=== PATIENT | male | born 1980 | race Caucasian/White ===

== ENCOUNTER → 2016-08-23 | Outpatient (CLI) | payer OTHER ==
[~2016-08-23] MED LIST: BACL-67 PO; CLAR1TAB2 PO; DIVA125T PO; DULO1CAP PO; FLON0.054; GABA600T PO; INVO100T PO; LISI20TA3 PO; MELO7.5S PO; METF500T PO; METO25TAB PO; OMEP20CA3 PO; OXYC1TAB15 PO; PAME10CA PO; TOPA100T8 PO; VERA240T14 PO; [UNRECOGNIZED DRUG - OTHER] PO
--- NOTE | 2016-08-23 23:45 | ECWPNPC ---
PATIENT NAME: NARESH CONCEPCION : 1980 GENDER: MALE VISIT DATE: 08/23/2016 DISCHARGE DATE: 08/23/16 1157 VISIT LOCKED DATE TIME: PHYSICIAN: SAIRA JAMA RESOURCE: SAIRA JAMA REASON FOR APPOINTMENT 1. W/C- NECK HISTORY OF PRESENT ILLNESS HISTORY OF PRESENT ILLNESS: PAIN THE PATIENT DESCRIBES THE PAIN... FALL RISK SCREENING: SCREENING :NO FALLS IN THE PAST YEAR TODAY'S VISIT: NOTES: RATES PAIN TODAY 5/10. PAIN AND TENDERNESS IS NOTED FROM THE BASE OF NECK TO THE BACK OF HEAD, BOTH SIDES. PAIN IS INTERMITTANTLY SHOOTING UP THE BACK OF THE HEAD FRONM THE NECK. REPORTS HE IS STILL EXPERIENCING NUMBNESS AND TINGLING IN 4THAND 5TH FINGER BOTH HANDS AND HAS SOME TINGLING IN THUMB,1ST AND 2ND FINGERS OF BOTH HANDS. THERE IS A DEEP ACHE AT THE BASE OF THE NECK AND THIS IS INCREASING LIKE IT WAS BEFORE HIS INJECTIONS. REPORTS THAT TRIGGER POINT INJECTIONS (09/23/15) AND CERVICAL FACET BLOCK RIGHT SIDE AT C2-3 AND C3-4 (12/08/15) COMPLETED BROUGHT SIGNIFICANT RELIEF OF 75% IN THE NECK AND BACK OF THE HEAD.. CURRENT MEDICATIONS TAKING DIVALPROEX SODIUM 125 MG TABLET DELAYED RELEASE 1 TABLET ORALLY ONCE A DAY TAKING LISINOPRIL-HYDROCHLOROTHIAZIDE 20-25 MG TABLET 1 TABLET ORALLY ONCE A DAY TAKING LORATADINE 10 MG TABLET 1 TABLET ORALLY ONCE A DAY TAKING METFORMIN 1000 MG TABLET 1 TAB(S) P.O. BID TAKING METFORMIN 500 MG 1 TAB ORAL AT NOON TAKING METOPROLOL TARTRATE 25 MG TABLET 1 TABLET ORALLY TWICE A DAY TAKING OMEPRAZOLE 20MG 20MG TABLET ORAL DAILY TAKING DULOXETINE HCL 20 MG CAPSULE DELAYED RELEASE PARTICLES 1 CAPSULE ORALLY DAILY TAKING BACLOFEN 10 MG TABLET 1 TABLET WITH FOOD OR MILK ORALLY THREE TIMES A DAY TAKING TRUVADA 200-300 MG TABLET 1 TABLET ORALLY ONCE A DAY TAKING CYCLOBENZAPRINE HCL 10 MG TABLET 1 TABLET ORALLY THREE TIMES A DAY TAKING PERCOCET 7.5-325 MG TABLET 1 TABLET NEEDED ORALLY EVERY 6 HRS PRN PAIN MDD=2 TAKING MELOXICAM 7.5 MG TABLET 1 TABLET ORALLY TWICE A DAY NOT-TAKING TIZANIDINE HCL 2 MG TABLET 1 TABLET NEEDED ORALLY THREE TIMES A DAY NOT-TAKING OXYCONTIN 15 MG TABLET ER 12 HOUR ABUSE-DETERRENT 1 TABLET ORALLY EVERY 12 HRS NOT-TAKING INVOKANA 300 MG TABLET 1 TABLET ORALLY ONCE A DAY, NOTES: YESTERDAY 0730 NOT-TAKING GABAPENTIN 600 MG TABLET 1 TABLET ORALLY THREE TIMES A DAY, NOTES: 0800 NOT-TAKING NORTRIPTYLINE HCL 25 MG CAPSULE 1 CAPSULE ORALLY ONCE A DAY, NOTES: 0800 NOT-TAKING VALIUM 5 MG TABLET 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 NEW PATIENT PAIN DIARY TODAY'S VISITNOTES FROM 0-10, WHAT LEVEL IS YOUR PAIN TODAY?0 PAIN CLINIC PFS, CLERGY, PUBLIC HEALTH REFERRALS PFS REFERRAL NEEDED?NO CLERGY REFERRAL NEEDED?NO PUBLIC HEALTH REFERRAL NEEDED?NO WAS THE PROVIDER NOTIFIED OF ANY PERTINENT INFO?NO PFS REFERRAL NEEDED?NO CLERGY REFERRAL NEEDED?NO PUBLIC HEALTH REFERRAL NEEDED?NO WAS THE PROVIDER NOTIFIED OF ANY PERTINENT INFO?NO REVIEW OF SYSTEMS CONSTITUTIONAL: ANY CHANGE IN YOUR MEDICAL CONDITION? NO . CHILLS NO . FEVER NO . INFECTION: DO YOU HAVE NEW INFECTIONS? NO . DO YOU HAVE HISTORY OF MRSA? NO . MUSCULOSKELETAL: ANY NEW PATTERNS OF PAIN OR NUMBNESS? NO . GASTROENTEROLOGY: ANY NEW CHANGE IN BOWEL CONTROL? NO . GENITOURINARY: ANY NEW CHANGE IN BLADDER CONTROL? NO . IS THERE A CHANCE YOU COULD BE ? NO . HEMATOLOGY/LYMPH: DO YOU TAKE ANY BLOOD THINNERS? (FOR EXAMPLE- COUMADIN, PLAVIX, AGGRENOX, PLATEL, PRADAXA, OR XARELTO) NO . WHEN WAS YOUR LAST DOSE? DATE: TIME: . NEUROLOGY: HAVE YOU FALLEN IN THE PAST 6 MONTHS? NO . ANY NEW EXTREMITY NUMBNESS OR WEAKNESS? NO . CARDIOLOGY: DO YOU HAVE A PACEMAKER OR DEFIBRILLATOR? NO . RESPIRATORY: HAVE YOU BEEN SICK IN THE PAST WEEK? NO . FEVER NO . FLU LIKE SYMPTOMS? NO . COUGH NO . INTEGUMENTARY: DO YOU HAVE ANY RASHES OR OPEN SORES? NO . ALLERGIC/IMMUNO: ARE YOU ALLERGIC TO SHELLFISH OR IV DYE? NO . ANY NEW ALLERGIES? NO . PSYCHIATRIC: DO YOU HAVE THOUGHTS OF HURTING YOURSELF OR SOMEONE ELSE? NO . ARE YOU ABUSED, NEGLECTED, OR IN AN UNSAFE ENVIRONMENT? NO . ENDOCRINOLOGY: ARE YOU DIABETIC? YES . OTHER: DO YOU NEED ANY PRESCRIPTIONS? NO . IF YES, PLEASE LIST: ____ . ANY NEW PROBLEMS WITH YOUR MEDICATIONS? NO . WHEN DID YOU LAST EAT? ____ . WHEN DID YOU LAST DRINK? ____ . WHAT DID YOU LAST DRINK? ____ . NAME OF PERSON DRIVING YOU HOME? ____ . DO YOU HAVE ANY OTHER QUESTIONS OR CONCERNS NO . REVIEWED BY: PROVIDER: SAIRA DANIELS . VITAL SIGNS WT 283.2 LBS, HT 68 IN, BMI 43.06 INDEX, BP 125/82 MM HG, HR 100 /MIN, RR 18 /MIN, TEMP 97.1 F, OXYGEN SAT % 95%, NA INITIALS SC 11:06, REVIEWED BY: KG. EXAMINATION GENERAL EXAMINATION: PSYCHALERT , ORIENTED X 3 , APPROPRIATE MOOD AND AFFECT . LUNGS:CLEAR TO AUSCULTATION , NO WHEEZES, RALES OR RHONCHI. HEART:HEART RATE REGULAR. MUSCULOSKELETAL:POINT TENDERNESS OVER BILATERAL OCCIPITAL NERVE REGION. , TRIGGER POINTS AND TIGHT FIBROUS BANDS IDENTIFIED OVER THE CERVICAL PARASPINOUS MUSCLES AND INTO THE TRAPEZIUS MUSCLES BILATERALY.DECREASED ROM WITH NECK ROTATION AND FLEXION AND EXTENSION. HAND WATCH INSPECTOR FINAL MOVEMENT EQUAL BUT DIMINISHED IN OVERALL STRENGTH. NEUROLOGIC EXAM:DECREASED SENSATION TO LIGHT TOUCH OVER 4TH AND 5TH FINGERS BILATERALLY. ASSESSMENTS SPONDYLOSIS OF CERVICAL REGION WITHOUT MYELOPATHY OR RADICULOPATHY - M47.812 (PRIMARY) BILATERAL OCCIPITAL NEURALGIA - M54.81 MYALGIA - M79.1 TREATMENT SPONDYLOSIS OF CERVICAL REGION WITHOUT MYELOPATHY OR RADICULOPATHY STOP MELOXICAM TABLET, 7.5 MG, 1 TABLET, ORALLY, TWICE A DAY START CELEBREX CAPSULE, 200 MG, 1 CAPSULE, ORALLY, ONCE A DAY, 30 DAY(S), 30, REFILLS 2 TRIGGER POINT 3 + SAIRA LANDAVERDE 08/23/2016 11:40:27 AM > NECK GREATER SAIRA ALVAREZ 08/23/2016 11:41:08 AM > BILATERAL NOTES: CONTINUE EXERCISES AND STRETCHES. UTOX TODAY. CALL IF NOT HEARD ON AUTH FOR INJECTIONS IN 2-3 WEEKS. PROCEDURES PN WORKMANS' COMP OPINION IN YOUR OPINION, WAS THE INCIDENT THAT THE PATIENT DESCRIBED THE COMPETENT MEDICAL CAUSE OF THIS INJURY/ILLNESS? YES ARE THE PATIENT'S COMPLAINTS CONSISTENT WITH HIS/HER HISTORY OF THE INJURY/ILLNESS? YES IS THE PATIENT'S HISTORY OF THE INJURY/ILLNESS CONSISTENT WITH YOUR OBJECTIVE FINDING? YES WHAT IS THE PERCENTAGE OF TEMPORARY IMPAIRMENT? TOTAL = 100% IS THE PATIENT WORKING? NO DOCTOR ON SITE: SAKSHI ALFREDO MD PROCEDURE CODES FA211 ESTABILISHED PATIENT [facility] CHARGE DISPOSITION & COMMUNICATION FOLLOW UP 6 WEEKS (REASON: WC NECK) ELECTRONICALLY SIGNED BY DIDIER WOOD ON 08/23/2016 AT 04:39 PM EST DISCLAIMER : THIS IS A VISIT SUMMARY EXTRACTED FROM THE [employer] CHART. IT IS NOT A COPY OF THE [employer] PROGRESS NOTE. VINICIO
== END ==
LOC: M PAIN 10:40
PROVIDERS: ATTEND Nurse Practitioner Family
DX: Z09 Encounter for follow-up examination after completed treatment for conditions other than malignant neoplasm (principal); G89.29 Other chronic pain; M47.812 Spondylosis without myelopathy or radiculopathy, cervical region; M54.81 Occipital neuralgia; M79.1 Myalgia; E11.9 Type 2 diabetes mellitus without complications; I10 Essential (primary) hypertension; Z79.84 Long term (current) use of oral hypoglycemic drugs; Z79.891 Long term (current) use of opiate analgesic; Z79.899 Other long term (current) drug therapy

== ENCOUNTER → 2016-09-20 | Outpatient (CLI) | payer OTHER ==
--- NOTE | 2016-09-25 00:02 | ECWPNPC ---
PATIENT NAME: NARESH CONCEPCION : 1980 GENDER: MALE VISIT DATE: 09/20/2016 DISCHARGE DATE: 09/20/16 1633 VISIT LOCKED DATE TIME: PHYSICIAN: SAKSHI HUMPHREY RESOURCE: SAKSHI HUMPHREY REASON FOR APPOINTMENT 1. WC HISTORY OF PRESENT ILLNESS HISTORY OF PRESENT ILLNESS: PAIN THE PATIENT DESCRIBES THE PAIN... 36 YEAR OLD MALE WITH HISTORY OF CHRONIC NECK AND HEAD PAIN. PATIENT DESCRIBES THE PAIN ACHING, SHARP, STABBING, TENDER, SORE, AND HAVING IT ALL THE TIME WITH A PAIN SCORE OF 10/10 ON TODAY'S VISIT. 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 PATIENT STATES THAT HE HAS NOT HAD ANY SURGERY ON HIS NECK. PATIENT STATES THAT HE HAS TRIED PT IN THE PAST WITHOUT ANY IMPROVEMENTS IN HIS MOBILITY AND FUNCTIONALITY. PATIENT REPORTS OF DIFFICULTY SLEEPING AT NIGHT. PATIENT REPORTS THAT LAYING DOWN DOES PROVIDE SOME PAIN RELIEF. PATIENT REPORTS THAT HE HAS RADIATING PAIN TO BOTH ARMS AND SHOULDER WITH A TINGLING SENSATION IN HIS HANDS AND FINGER TIPS. PATIENT REPORTS THAT ABOUT 10 DAYS AGO HE WENT TO THE ER DUE TO SEVERE NECK PAIN. PATIENT STATES THAT HE IN THE PAST HE RECEIVED TPI WITH GREATLY HELPED WITH INCREASING THE RANGE OF MOTION ON HIS NECK. PATIENT DENIES UNEXPLAINABLE WEIGHT LOSS, FEVER, CHILLS, NEW CHANGES ON HIS URINARY OR BOWEL CONTROL. FALL RISK SCREENING: SCREENING :NO FALLS IN THE PAST YEAR CURRENT MEDICATIONS TAKING CELEBREX 200 MG CAPSULE 1 CAPSULE ORALLY ONCE A DAY TAKING DIVALPROEX SODIUM 125 MG TABLET DELAYED RELEASE 1 TABLET ORALLY ONCE A DAY TAKING LISINOPRIL-HYDROCHLOROTHIAZIDE 20-25 MG TABLET 1 TABLET ORALLY ONCE A DAY TAKING LORATADINE 10 MG TABLET 1 TABLET ORALLY ONCE A DAY TAKING METFORMIN 1000 MG TABLET 1 TAB(S) P.O. BID TAKING METFORMIN 500 MG 1 TAB ORAL AT NOON TAKING METOPROLOL TARTRATE 25 MG TABLET 1 TABLET ORALLY TWICE A DAY TAKING OMEPRAZOLE 20MG 20MG TABLET ORAL DAILY TAKING DULOXETINE HCL 20 MG CAPSULE DELAYED RELEASE PARTICLES 1 CAPSULE ORALLY DAILY TAKING BACLOFEN 10 MG TABLET 1 TABLET WITH FOOD OR MILK ORALLY THREE TIMES A DAY TAKING TRUVADA 200-300 MG TABLET 1 TABLET ORALLY ONCE A DAY TAKING CYCLOBENZAPRINE HCL 10 MG TABLET 1 TABLET ORALLY THREE TIMES A DAY TAKING PERCOCET 7.5-325 MG TABLET 1 TABLET NEEDED ORALLY EVERY 6 HRS PRN PAIN MDD=2 NOT-TAKING TIZANIDINE HCL 2 MG TABLET 1 TABLET NEEDED ORALLY THREE TIMES A DAY NOT-TAKING OXYCONTIN 15 MG TABLET ER 12 HOUR ABUSE-DETERRENT 1 TABLET ORALLY EVERY 12 HRS NOT-TAKING INVOKANA 300 MG TABLET 1 TABLET ORALLY ONCE A DAY, NOTES: YESTERDAY 0730 NOT-TAKING GABAPENTIN 600 MG TABLET 1 TABLET ORALLY THREE TIMES A DAY, NOTES: 0800 NOT-TAKING NORTRIPTYLINE HCL 25 MG CAPSULE 1 CAPSULE ORALLY ONCE A DAY, NOTES: 0800 NOT-TAKING VALIUM 5 MG 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 SURGICAL HISTORY COLONOSCOPY RT CARPEL TUNNEL 2016 LEFT CARPEL TUNNEL 2017 FAMILY HISTORY NO FAMILY HISTORY DOCUMENTED. SOCIAL HISTORY GENERAL: TOBACCO USE ARE YOU A: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 NEW PATIENT PAIN DIARY TODAY'S VISITNOTES FROM 0-10, WHAT LEVEL IS YOUR PAIN TODAY?0 PAIN CLINIC PFS, CLERGY, PUBLIC HEALTH REFERRALS PFS REFERRAL NEEDED?NO CLERGY REFERRAL NEEDED?NO PUBLIC HEALTH REFERRAL NEEDED?NO WAS THE PROVIDER NOTIFIED OF ANY PERTINENT INFO?NO PFS REFERRAL NEEDED?NO CLERGY REFERRAL NEEDED?NO PUBLIC HEALTH REFERRAL NEEDED?NO WAS THE PROVIDER NOTIFIED OF ANY PERTINENT INFO?NO HOSPITALIZATION/MAJOR DIAGNOSTIC PROCEDURE NO HOSPITALIZATION HISTORY. REVIEW OF SYSTEMS CONSTITUTIONAL: ANY CHANGE IN YOUR MEDICAL CONDITION? NO . CHILLS NO . FEVER NO . INFECTION: DO YOU HAVE NEW INFECTIONS? NO . DO YOU HAVE HISTORY OF MRSA? NO . MUSCULOSKELETAL: ANY NEW PATTERNS OF PAIN OR NUMBNESS? YES, 10 DAYS AGO, PT STATES THAT HE WAS TURNING HIS HEAD AND HEARD SOMETHING POP IN NECK, VERY PAINFUL, BECAME NAUSEATED, WENT TO ED 2 DAYS LATER, NO MEDS RECEIVED, NO XRAYS DONE. NECK REMAINS VERY PAINFUL 10/10 PAIN . GASTROENTEROLOGY: ANY NEW CHANGE IN BOWEL CONTROL? NO . GENITOURINARY: ANY NEW CHANGE IN BLADDER CONTROL? NO . IS THERE A CHANCE YOU COULD BE ? NO . HEMATOLOGY/LYMPH: DO YOU TAKE ANY BLOOD THINNERS? (FOR EXAMPLE- COUMADIN, PLAVIX, AGGRENOX, PLATEL, PRADAXA, OR XARELTO) NO . WHEN WAS YOUR LAST DOSE? DATE: TIME: . NEUROLOGY: HAVE YOU FALLEN IN THE PAST 6 MONTHS? NO . ANY NEW EXTREMITY NUMBNESS OR WEAKNESS? NO . CARDIOLOGY: DO YOU HAVE A PACEMAKER OR DEFIBRILLATOR? NO . RESPIRATORY: HAVE YOU BEEN SICK IN THE PAST WEEK? NO . FEVER NO . FLU LIKE SYMPTOMS? NO . COUGH NO . INTEGUMENTARY: DO YOU HAVE ANY RASHES OR OPEN SORES? NO . ALLERGIC/IMMUNO: ARE YOU ALLERGIC TO SHELLFISH OR IV DYE? NO . ANY NEW ALLERGIES? NO . PSYCHIATRIC: DO YOU HAVE THOUGHTS OF HURTING YOURSELF OR SOMEONE ELSE? NO . ARE YOU ABUSED, NEGLECTED, OR IN AN UNSAFE ENVIRONMENT? NO . ENDOCRINOLOGY: ARE YOU DIABETIC? YES, FSBS 247 . OTHER: DO YOU NEED ANY PRESCRIPTIONS? NO . IF YES, PLEASE LIST: ____ . ANY NEW PROBLEMS WITH YOUR MEDICATIONS? NO . WHEN DID YOU LAST EAT? 6PM . WHEN DID YOU LAST DRINK? 09/20 5:45AM . WHAT DID YOU LAST DRINK? WATER . NAME OF PERSON DRIVING YOU HOME? SELF . DO YOU HAVE ANY OTHER QUESTIONS OR CONCERNS CHANGE OF NUMBNESS IN BACK OF HEAD, HEARD SOMETHING POP IN SHOULDER/NECK.PT STATES THAT HE CURRENTLY USES CHEWING TOBACCO, USING NICOTENE PATCHES TO WEAN OFF CHEWING TOBACCO. . REVIEWED BY: PROVIDER: SAKSHI HUMPHREY MD . VITAL SIGNS WT 280.8 LBS, HT 68 IN, BMI 42.69 INDEX, BP 147/82 MM HG, HR 109 /MIN, RR 18 /MIN, TEMP 97.1 F, OXYGEN SAT % 95%, SAFE IN ENV? (Y/N) Y, NA INITIALS SC 14:50, REVIEWED BY: JOSE. EXAMINATION : PATIENT IS ALERT O X 3 AND COOPERATIVE. THERE IS TENDERNESS IN THE CERVICAL PARASPINAL MUSCLE GROUP WITH BANDS OF TISSUES, RESTRICTION OF MOVEMENT, AND PRESENCE OF TRIGGER POINTS. PATIENT IS ABLE TO FLEX HIS NECK TO 15 DEGREES AND EXTEND TO 5 DEGREES. PATIENT HAS LIMITED RANGE MOTION WITH LATERAL MOVEMENT WITH SEVERE DIFFICULTIES. MRI OF THE CERVICAL SPINE DONE ON 02/15/2015 SHOWS A DISC PROTRUSION AT C5-C6. 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 CONCEPCION'S PAIN MANAGEMENT CASE. AT THIS TIME I WILL REFILL PERCOCET AND CELEBREX FOR THE PATIENT TODAY. PATIENT WILL START ON SOMA TODAY FOR SPASTICITY AND PAIN. AFTER EXAMINING THE PATIENT HE IS A GOOD CANDIDATE FOR A BILATERAL NECK TPI. WE DISCUSSED THE RISK, BENEFITS, AND ALTERNATIVES AND THE PATIENT WOULD LIKE TO PROCEED. PATIENT WILL BE BOOKED PENDING APPROVAL. UTOX DONE ON 08-28-2016 SHOWS CONSISTENT RESULTS. INSTRUCTIONS WERE GIVEN, QUESTIONS WERE ANSWERED, PATIENT REPORTS UNDERSTANDING AND AGREES WITH THE PLAN. I, MARCO WHIPPLE, DOCUMENTED THE ABOVE INFORMATION ACTING A SCRIBE FOR DR. HUMPHREY. I HAVE REVIEWED THE ABOVE DOCUMENT, WRITTEN BY MARCO WHIPPLE SCRIBE AND I VERIFY THAT IT IS ACCURATE. OTHERS REFILL PERCOCET TABLET, 7.5-325 MG, 1 TABLET NEEDED, ORALLY, EVERY 6 HRS PRN PAIN MDD=2, 30 DAYS, 60, REFILLS 0 REFILL CELEBREX CAPSULE, 200 MG, 1 CAPSULE, ORALLY, ONCE A DAY, 30 DAY(S), 30, REFILLS 2 START SOMA TABLET, 350 MG, 1 TABLET NEEDED, ORALLY, BID NEEDED FOR SPASM AND PAIN MDD2, 30 DAY(S), 40, REFILLS 0 PROCEDURES PN WORKMANS' COMP OPINION IN YOUR OPINION, WAS THE INCIDENT THAT THE PATIENT DESCRIBED THE COMPETENT MEDICAL CAUSE OF THIS INJURY/ILLNESS? YES ARE THE PATIENT'S COMPLAINTS CONSISTENT WITH HIS/HER HISTORY OF THE INJURY/ILLNESS? YES IS THE PATIENT'S HISTORY OF THE INJURY/ILLNESS CONSISTENT WITH YOUR OBJECTIVE FINDING? YES WHAT IS THE PERCENTAGE OF TEMPORARY IMPAIRMENT? TOTAL = 100% IS THE PATIENT WORKING? NO DOCTOR ON SITE: SAKSHI ALFREDO MD PREVENTIVE MEDICINE PAIN CLINIC TEACHING: PROCEDURE TEACHING PRE TRIGGER POINT INJECTION INSTRUCTIONS REVIEWED WITH PT. VERBALZIED UNDERSTANDING. . PROCEDURE CODES G8730 PAIN ASSESS POS TOOL F/U PLAN DOC G8427 DOC MEDS VERIFIED W/PT OR RE FA211 ESTABILISHED PATIENT [facility] FACILITY CHARGE DISPOSITION & COMMUNICATION FOLLOW UP TPI PENDING APPROVAL ELECTRONICALLY SIGNED BY SAKSHI HUMPHREY MD ON 09/24/2016 AT 10:49 AM EDT DISCLAIMER : THIS IS A VISIT SUMMARY EXTRACTED FROM THE [employer] CHART. IT IS NOT A COPY OF THE [employer] PROGRESS NOTE. VINICIO
== END ==
LOC: M PAIN 14:45
PROVIDERS: ATTEND Anesthesiology
DX: Z09 Encounter for follow-up examination after completed treatment for conditions other than malignant neoplasm (principal); G89.29 Other chronic pain; M79.1 Myalgia; M50.122 Cervical disc disorder at C5-C6 level with radiculopathy; E11.9 Type 2 diabetes mellitus without complications; I10 Essential (primary) hypertension; Z79.84 Long term (current) use of oral hypoglycemic drugs; Z79.899 Other long term (current) drug therapy

== ENCOUNTER → 2016-10-24 | Outpatient (CLI) | payer OTHER ==
--- NOTE | 2016-11-04 23:43 | ECWPNPC ---
PATIENT NAME: NARESH CONCEPCION : 1980 GENDER: MALE VISIT DATE: 10/24/2016 DISCHARGE DATE: 10/24/16 1356 VISIT LOCKED DATE TIME: PHYSICIAN: SAKSHI HUMPHREY RESOURCE: SAKSHI HUMPHREY REASON FOR APPOINTMENT 1. W/C NECK AND BACK PAIN HISTORY OF PRESENT ILLNESS HISTORY OF PRESENT ILLNESS: PAIN THE PATIENT DESCRIBES THE PAIN... 36 YEAR OLD MALE WITH HISTORY OF CHRONIC NECK AND HEAD PAIN. PATIENT DESCRIBES THE PAIN ACHING, SHARP, STABBING, TENDER, SORE, AND HAVING IT ALL THE TIME WITH A PAIN SCORE OF 10/10 ON TODAY'S VISIT. 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 PATIENT STATES THAT HE HAS NOT HAD ANY SURGERY ON HIS NECK. PATIENT STATES THAT HE HAS TRIED PT IN THE PAST WITHOUT ANY IMPROVEMENTS IN HIS MOBILITY AND FUNCTIONALITY. PATIENT REPORTS OF DIFFICULTY SLEEPING AT NIGHT. PATIENT REPORTS THAT LAYING DOWN DOES PROVIDE SOME PAIN RELIEF. PATIENT REPORTS THAT HE HAS RADIATING PAIN TO BOTH ARMS AND SHOULDER WITH A TINGLING SENSATION IN HIS HANDS AND FINGER TIPS. PATIENT DENIES UNEXPLAINABLE WEIGHT LOSS, FEVER, CHILLS, NEW CHANGES ON HIS URINARY OR BOWEL CONTROL. FALL RISK SCREENING: SCREENING :NO FALLS IN THE PAST YEAR CURRENT MEDICATIONS TAKING DIVALPROEX SODIUM 125 MG TABLET DELAYED RELEASE 1 TABLET ORALLY ONCE A DAY TAKING LISINOPRIL-HYDROCHLOROTHIAZIDE 20-25 MG TABLET 1 TABLET ORALLY ONCE A DAY TAKING LORATADINE 10 MG TABLET 1 TABLET ORALLY ONCE A DAY TAKING METFORMIN 1000 MG TABLET 1 TAB(S) P.O. BID TAKING METFORMIN 500 MG 1 TAB ORAL AT NOON TAKING METOPROLOL TARTRATE 25 MG TABLET 1 TABLET ORALLY TWICE A DAY TAKING OMEPRAZOLE 20MG 20MG TABLET ORAL DAILY TAKING DULOXETINE HCL 20 MG CAPSULE DELAYED RELEASE PARTICLES 1 CAPSULE ORALLY DAILY TAKING TRUVADA 200-300 MG TABLET 1 TABLET ORALLY ONCE A DAY TAKING CYCLOBENZAPRINE HCL 10 MG TABLET 1 TABLET ORALLY THREE TIMES A DAY TAKING PERCOCET 7.5-325 MG TABLET 1 TABLET NEEDED ORALLY EVERY 6 HRS PRN PAIN MDD=2 TAKING CELEBREX 200 MG CAPSULE 1 CAPSULE ORALLY ONCE A DAY TAKING SOMA 350 MG TABLET 1 TABLET NEEDED ORALLY BID NEEDED FOR SPASM AND PAIN MDD2 TAKING GABAPENTIN 300 MG CAPSULE 1 CAPSULE ORALLY BEFORE BEDTIME FOR PAIN NOT-TAKING BACLOFEN 10 MG TABLET 1 TABLET WITH FOOD OR MILK ORALLY THREE TIMES A DAY, NOTES: NO LONGER HAS NOT-TAKING TIZANIDINE HCL 2 MG TABLET 1 TABLET NEEDED ORALLY THREE TIMES A DAY NOT-TAKING OXYCONTIN 15 MG TABLET ER 12 HOUR ABUSE-DETERRENT 1 TABLET ORALLY EVERY 12 HRS NOT-TAKING INVOKANA 300 MG TABLET 1 TABLET ORALLY ONCE A DAY, NOTES: YESTERDAY 0730 NOT-TAKING GABAPENTIN 600 MG TABLET 1 TABLET ORALLY THREE TIMES A DAY, NOTES: 0800 NOT-TAKING NORTRIPTYLINE HCL 25 MG CAPSULE 1 CAPSULE ORALLY ONCE A DAY, NOTES: 0800 NOT-TAKING VALIUM 5 MG 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 SURGICAL HISTORY COLONOSCOPY RT CARPEL TUNNEL 2016 LEFT CARPEL TUNNEL 2017 FAMILY HISTORY NO FAMILY HISTORY DOCUMENTED. SOCIAL HISTORY GENERAL: PAIN CLINIC PFS, CLERGY, PUBLIC HEALTH REFERRALS CLERGY REFERRAL NEEDED?NO WAS THE PROVIDER NOTIFIED OF ANY PERTINENT INFO?NO PFS REFERRAL NEEDED?NO PUBLIC HEALTH REFERRAL NEEDED?NO PATIENT: ____. HOSPITALIZATION/MAJOR DIAGNOSTIC PROCEDURE NO HOSPITALIZATION HISTORY. REVIEW OF SYSTEMS CONSTITUTIONAL: ANY CHANGE IN YOUR MEDICAL CONDITION? NO . CHILLS NO . FEVER NO . INFECTION: DO YOU HAVE NEW INFECTIONS? NO . DO YOU HAVE HISTORY OF MRSA? NO . MUSCULOSKELETAL: ANY NEW PATTERNS OF PAIN OR NUMBNESS? YES, RIGHT SHOULDER MADE A HAD PAIN IN RIGHT SHOULDER AND DOWN ARM. RIGHT HAND IS ALSO NUMB . GASTROENTEROLOGY: ANY NEW CHANGE IN BOWEL CONTROL? NO . GENITOURINARY: ANY NEW CHANGE IN BLADDER CONTROL? NO . IS THERE A CHANCE YOU COULD BE ? NO . HEMATOLOGY/LYMPH: DO YOU TAKE ANY BLOOD THINNERS? (FOR EXAMPLE- COUMADIN, PLAVIX, AGGRENOX, PLATEL, PRADAXA, OR XARELTO) NO . WHEN WAS YOUR LAST DOSE? DATE: TIME: . NEUROLOGY: HAVE YOU FALLEN IN THE PAST 6 MONTHS? NO . ANY NEW EXTREMITY NUMBNESS OR WEAKNESS? NO . CARDIOLOGY: DO YOU HAVE A PACEMAKER OR DEFIBRILLATOR? NO . RESPIRATORY: HAVE YOU BEEN SICK IN THE PAST WEEK? NO . FEVER NO . FLU LIKE SYMPTOMS? NO . COUGH NO . INTEGUMENTARY: DO YOU HAVE ANY RASHES OR OPEN SORES? NO . ALLERGIC/IMMUNO: ARE YOU ALLERGIC TO SHELLFISH OR IV DYE? NO . ANY NEW ALLERGIES? NO . PSYCHIATRIC: DO YOU HAVE THOUGHTS OF HURTING YOURSELF OR SOMEONE ELSE? NO . ARE YOU ABUSED, NEGLECTED, OR IN AN UNSAFE ENVIRONMENT? NO . ENDOCRINOLOGY: ARE YOU DIABETIC? YES . OTHER: DO YOU NEED ANY PRESCRIPTIONS? YES . IF YES, PLEASE LIST: CYCLOBENAPRINE . ANY NEW PROBLEMS WITH YOUR MEDICATIONS? NO . WHEN DID YOU LAST EAT? ____ . WHEN DID YOU LAST DRINK? ____ . WHAT DID YOU LAST DRINK? ____ . NAME OF PERSON DRIVING YOU HOME? ____ . DO YOU HAVE ANY OTHER QUESTIONS OR CONCERNS STILL WAITING FOR APPROVAL FOR MIKE AND MRI. WOULD LIKE TO DISCUSS CON'T THE KETOROLAC&NBSP;. REVIEWED BY: PROVIDER: SAKSHI HUMPHREY MD . VITAL SIGNS WT 278.0 LBS, HT 68 IN, BMI 42.27 INDEX, BP 137/88 MM HG, HR 99 /MIN, RR 18 /MIN, TEMP 97.0 F, OXYGEN SAT % 94%, NA INITIALS AW 1251, REVIEWED BY: AD. EXAMINATION : PATIENT IS ALERT O X 3 AND COOPERATIVE. PATIENT ABLE TO EXTEND NECK 20 DEGREE, EXTEND 15 DEGREES, LATERAL ROTATION TO THE RIGHT 15 DEGREE, AND LATERAL ROTATION TO THE LEFT 15 DEGREE WITH DISCOMFORT. PATIENT ABLE TO ABDUCT LEFT ARM COMPLETELY AND RIGHT ARM TO SHOULDER LEVEL. RIGHT ARM IS WEAKER THEN THE LEFT ALONG WITH THE HAND DRAW IN HAND. TENDERNESS IN THE CERVICAL AREA AND PARASPINAL MUSCLE GROUP. BANDS OF TISSUE, RESTRICTION OF MOVEMENT AND PRESENCE OF TRIGGER POINTS IN THE CERVICAL AREA.MRI OF THE CERVICAL SPINE DONE ON 02/15/2017 SHOWS A DISC PROTRUSION AT C5-C6. 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 CONCEPCION'S PAIN MANAGEMENT CASE. AT THIS TIME THE PATIENT WILL CONTINUE WITH THE SAME MEDICATION REGIME BEFORE. PATIENT WILL USE GABAPENTIN FOR THE NEUROPATHIC PAIN DOWN THE LEGS, CYCLOBENZAPRINE FOR THE MUSCLE SPASMS, AND PERCOCET FOR THE SOMATIC PAIN. PATIENT DENIES ABUSE OF ANY MEDICATION, DENIES USE OF ILLEGAL SUBSTANCES, AND STATES THAT HE IS ONLY USING THE MEDICATION FOR PAIN MANAGEMENT. PATIENT BROUGHT HIS MEDICATIONS TO TODAY'S VISIT IN THEIR ORIGINAL BOTTLES. URINE TOXICOLOGY REPORT DONE IN AUGUST 2016 SHOWS CONSISTENT RESULTS WITH THE PATIENT'S MEDICATION LIST. WE DISCUSSED MOVING FORWARD WITH A CERVICAL EPIDURAL DUE TO THE RADICULAR PAIN AND THE DISC PROTRUSION. WE DISCUSSED THE RISKS, BENENFITS, AND ALTNERATIVES WITH THE INJECTION THE PATIENT WOULD LIKE TO PROCEED. INSTRUCTIONS WERE GIVEN, QUESTIONS WERE ANSWERED, PATIENT REPORTS UNDERSTANDING AND AGREES WITH THE PLAN. I, YANY CARDOZA, DOCUMENTED THE ABOVE INFORMATION ACTING A SCRIBE FOR DR. HUMPHREY. I HAVE REVIEWED THE ABOVE DOCUMENT, WRITTEN BY YANY CHILDERS AND I VERIFY THAT IT IS ACCURATE. PROCEDURES PN WORKMANS' COMP OPINION IN YOUR OPINION, WAS THE INCIDENT THAT THE PATIENT DESCRIBED THE COMPETENT MEDICAL CAUSE OF THIS INJURY/ILLNESS? YES ARE THE PATIENT'S COMPLAINTS CONSISTENT WITH HIS/HER HISTORY OF THE INJURY/ILLNESS? YES IS THE PATIENT'S HISTORY OF THE INJURY/ILLNESS CONSISTENT WITH YOUR OBJECTIVE FINDING? YES WHAT IS THE PERCENTAGE OF TEMPORARY IMPAIRMENT? TOTAL = 100% IS THE PATIENT WORKING? NO DOCTOR ON SITE: SAKSHI ALFREDO MD PREVENTIVE MEDICINE PAIN CLINIC TEACHING: PROCEDURE TEACHING PT. DECLINED PRINTED INFORMATION ON MIKE AND PRE-PROCEDURE INSTRUCTIONS STATING HE RECEIVED THEM LAST TIME AND STILL HAS THE INFORMATION. PRE-PROCEDURE INSTRUCTIONS REVIEWED WITH PT. AND HE VERBALIZED UNDERSTANDING. AD. PROCEDURE CODES FA211 ESTABILISHED PATIENT [facility] CHARGE DISPOSITION & COMMUNICATION FOLLOW UP 6 WEEKS AND CERVICAL EPIDURAL AFTER APPROVED ELECTRONICALLY SIGNED BY SAKSHI HUMPHREY MD ON 11/04/2016 AT 12:31 PM EDT DISCLAIMER : THIS IS A VISIT SUMMARY EXTRACTED FROM THE [employer] CHART. IT IS NOT A COPY OF THE [employer] PROGRESS NOTE. VINICIO
== END ==
LOC: M PAIN 13:00
PROVIDERS: ATTEND Anesthesiology
DX: G89.29 Other chronic pain (principal); M79.1 Myalgia; M50.122 Cervical disc disorder at C5-C6 level with radiculopathy; E11.9 Type 2 diabetes mellitus without complications; I10 Essential (primary) hypertension; Z79.84 Long term (current) use of oral hypoglycemic drugs; Z79.899 Other long term (current) drug therapy

== ENCOUNTER → 2016-12-04 | Day surgery (SDC) | payer OTHER ==
[~2016-12-04] VITALS: Ht 172.7 cm; Wt 127.5 kg
[~2016-12-04] MED LIST changes: +ACET30TAB PO; +ACETAMINOPH W/CODEINE #3 TAB UD PO PRN; +ALOG25TA PO; +ATOR1TAB21 PO; +AUGM500T34 PO; +BACT800T5 PO; +BASA100I SC; +CELE-19 PO; +CETI10TA PO; +CYCL10TA PO; +EPINEPHrine 1MG/ML INJ 30ML MD-VIAL As Ordered ONE; +GABA-282 PO; +LIDOCAINE W/EPINEPHRINE 1% 20ML VIAL As Ordered ONE; +LR 1,000 ML IV ONE; +LR 1,000 ML IV SCH; +METHYLENE BLUE 0.5% (5MG/ML) 10 ML AMP (PROVAYBLUE)(Q9968 PER 1MG) As Ordered ONE; +MIDAZOLAM INJ 2 MG/2 ML VIAL (J2250) As Ordered ONE; +MORPHINE 10 MG/ML 1ML VIAL IV PRN; +ONDANSETRON 4MG/2ML VIAL (J2405) As Ordered ONE; +ONDANSETRON 4MG/2ML VIAL (J2405) IV PRN; +PROPOFOL 200 MG/20 ML VIAL As Ordered ONE; +ROCURONIUM BROMIDE 50 MG/5 ML VIAL As Ordered ONE; +SM N; +SUCCINYLCHOLINE 100 MG/5 ML SYRINGE (J0330) As Ordered ONE; +dexameTHASONE 4 MG/ML 1ML VIAL (J1100) As Ordered ONE; +fentaNYL 100 MCG/2 ML INJECTION (J3010) As Ordered ONE; +fentaNYL 100 MCG/2 ML INJECTION (J3010) IV PRN
[2016-12-04 16:20] VITALS: BP 138/83
--- NOTE | 2016-12-05 13:30 | RO ---
DATE OF PROCEDURE: 12/04/2016 PREOPERATIVE DIAGNOSIS: Chronic rhinosinusitis. POSTOPERATIVE DIAGNOSIS: Chronic rhinosinusitis. PROCEDURES: Septoplasty, left nasal cautery, bilateral balloon sinuplasty, bilateral maxillary antrostomy, bilateral ethmoidectomy. SURGEON: Dr. Sarabjit Bull PECAN GROWER: ANESTHESIA: . DESCRIPTION OF PROCEDURE: Under general anesthesia with the patient intubated, the patient was prepped and draped in the usual sterile manner. I used pledgets of adrenaline 1:100,000 and infiltrated with lidocaine and epinephrine. I started making an incision anteriorly and elevated the subperichondrial plane. I divided the quadrangular cartilage from the ethmoid plate and maxillary crest and then removed portions of the ethmoid plate and maxillary crest, which were deviated, to straighten the septum. Once this was done, I closed the septum with 4-0 chromic and 4-0 Vicryl. I then started on the right side. I identified the uncinate process and then using the seeker, identified the natural sinus ostium, and then using the balloon, I dilated that area up . I then used the microdebrider to remove tissue around that area. Once that was done, then I did the same procedure on the opposite side. After that, then I returned to the right side, and then I opened the ethmoid air cells, and then dissected posteriorly, opened the posterior ethmoid cells, and then anteriorly. That was then done the same on the both sides. This was done using the microdebrider. The patient tolerated the procedure well. I cauterized the nasal septum anteriorly on the left side. I put Propel implant between the ostiomeatal complex area and the middle turbinate on both sides. Less than 20 mL estimated blood loss. The patient was extubated and transferred to the recovery room in excellent condition.
== END | disposition home or self-care (01) ==
LOC: M SDC 10:13
PROVIDERS: ATTEND Otolaryngology
DX: J31.0 Chronic rhinitis (principal); E11.9 Type 2 diabetes mellitus without complications; I10 Essential (primary) hypertension; Z79.4 Long term (current) use of insulin; Z79.899 Other long term (current) drug therapy; E78.5 Hyperlipidemia, unspecified; K21.9 Gastro-esophageal reflux disease without esophagitis; G47.30 Sleep apnea, unspecified; F17.220 Nicotine dependence, chewing tobacco, uncomplicated
CPT/HCPCS: 30520; 31255; 31295; 88300; 88305; C2625

== ENCOUNTER 2016-12-06 22:05 | Emergency (ER) | payer OTHER ==
[~2016-12-06] VITALS: Ht 172.7 cm; Wt 124.0 kg
[~2016-12-06 22:05] MED LIST changes: -ACET30TAB PO; -ACETAMINOPH W/CODEINE #3 TAB UD PO PRN; -AUGM500T34 PO; -BACL-67 PO; +BACL1TAB9 PO; -BACT800T5 PO; -CELE-19 PO; +CELE1CAP4 PO; -EPINEPHrine 1MG/ML INJ 30ML MD-VIAL As Ordered ONE; -LIDOCAINE W/EPINEPHRINE 1% 20ML VIAL As Ordered ONE; -LR 1,000 ML IV ONE; -LR 1,000 ML IV SCH; -METF500T PO; +METF500T13 PO; -METHYLENE BLUE 0.5% (5MG/ML) 10 ML AMP (PROVAYBLUE)(Q9968 PER 1MG) As Ordered ONE; +METO25TA4 PO; -MIDAZOLAM INJ 2 MG/2 ML VIAL (J2250) As Ordered ONE; -MORPHINE 10 MG/ML 1ML VIAL IV PRN; -ONDANSETRON 4MG/2ML VIAL (J2405) As Ordered ONE; -ONDANSETRON 4MG/2ML VIAL (J2405) IV PRN; -PROPOFOL 200 MG/20 ML VIAL As Ordered ONE; -ROCURONIUM BROMIDE 50 MG/5 ML VIAL As Ordered ONE; -SUCCINYLCHOLINE 100 MG/5 ML SYRINGE (J0330) As Ordered ONE; +TOPA100T12 PO; -TOPA100T8 PO; -dexameTHASONE 4 MG/ML 1ML VIAL (J1100) As Ordered ONE; -fentaNYL 100 MCG/2 ML INJECTION (J3010) As Ordered ONE; -fentaNYL 100 MCG/2 ML INJECTION (J3010) IV PRN
[2016-12-06] MEDS ORDERED: ACET30TAB PO (22:26)
[2016-12-06] MEDS ORDERED: PIPERACILLIN/TAZOBACTAM SOD 3.375 GM in D5W MINI-BAG PLUS 50 ML IV ONE (23:30)
[2016-12-06] MEDS ORDERED: MORPHINE 4 MG/ML 1ML SYRINGE IV ONE (23:30)
[2016-12-06 23:45] LABS: BASO % 0.3 % (0.0-1.0); EOS # 0.2 K/mm3 (0.0-0.50); EOS % 1.9 % (0.0-3.0); LARGE UNSTAINED CELL # 0.2 K/mm3 (0.0-0.4); LARGE UNSTAINED CELL % 1.3 % (0.0-4.0); LYMPH # 2.5 K/mm3 (1.5-4.5); LYMPH % 18.1 % (24.0-44.0); MEAN CORPUSCULAR HEMOGLOBIN 30.1 pg (27.0-33.0); MEAN CORPUSCULAR HGB CONC 33.4 g/dl (32.0-36.5); MONO # 0.8 K/mm3 (0.0-0.8); MONO % 6.2 % (0.0-5.0); NEUTROPHILS # 9.3 K/mm3 (1.8-7.7); NEUTROPHILS % 72.3 % (36.0-66.0); PLATELET COUNT, AUTOMATED 233 k/mm3 (150-450); RED CELL DISTRIBUTION WIDTH 13.1 % (11.5-14.5); WHITE BLOOD COUNT 12.8 K/mm3 (4.0-10.0)
[2016-12-07 00:11] LABS: ANION GAP 8 MEQ/L (8-16); BLOOD UREA NITROGEN 21 MG/DL (7-18); CALCIUM LEVEL 8.9 MG/DL (8.5-10.1); CARBON DIOXIDE LEVEL 31 MEQ/L (21-32); CHLORIDE LEVEL 96 MEQ/L (98-107); CREATININE FOR GFR 1.12 MG/DL (0.70-1.30); GLOMERULAR FILTRATION RATE > 60.0 (>60); GLUCOSE, FASTING 316 MG/DL (70-105); POTASSIUM SERUM 3.8 MEQ/L (3.5-5.1); SODIUM LEVEL 135 MEQ/L (136-145)
[2016-12-07] MEDS ORDERED: HumuLIN R (REGULAR) INSULIN (NovoLIN R) **100U/ML** PER UNIT IV ONE (00:30)
[2016-12-07] MEDS ORDERED: AUGM500T34 PO (01:07)
[2016-12-07 01:30] VITALS: BP 147/93
== END 2016-12-07 01:32 | disposition home or self-care (01) ==
LOC: M ED 22:05
DX: G89.18 Other acute postprocedural pain (principal); E11.9 Type 2 diabetes mellitus without complications; I10 Essential (primary) hypertension; E78.5 Hyperlipidemia, unspecified; F32.9 Major depressive disorder, single episode, unspecified; Z87.891 Personal history of nicotine dependence; Z79.899 Other long term (current) drug therapy

== ENCOUNTER 2016-12-09 19:50 | Emergency (ER) | payer OTHER ==
[~2016-12-09] VITALS: Ht 172.7 cm; Wt 124.1 kg
[~2016-12-09 19:50] MED LIST changes: +ACET30TAB PO; +AUGM500T34 PO
[2016-12-09] MEDS ORDERED: NS 1,000 ML IV ONE (23:15)
[2016-12-09 23:50] LABS: BASO % 0.3 % (0.0-1.0); EOS # 0.4 K/mm3 (0.0-0.50); EOS % 3.7 % (0.0-3.0); LARGE UNSTAINED CELL # 0.2 K/mm3 (0.0-0.4); LARGE UNSTAINED CELL % 2.3 % (0.0-4.0); LYMPH # 2.7 K/mm3 (1.5-4.5); LYMPH % 26.1 % (24.0-44.0); MEAN CORPUSCULAR HEMOGLOBIN 29.8 pg (27.0-33.0); MEAN CORPUSCULAR HGB CONC 33.7 g/dl (32.0-36.5); MEAN CORPUSCULAR VOLUME 88.3 fl (80.0-96.0); MONO # 0.5 K/mm3 (0.0-0.8); MONO % 5.6 % (0.0-5.0); PLATELET COUNT, AUTOMATED 236 k/mm3 (150-450); RED CELL DISTRIBUTION WIDTH 12.9 % (11.5-14.5); WHITE BLOOD COUNT 9.6 K/mm3 (4.0-10.0)
[2016-12-10] MEDS ORDERED: ONDANSETRON 4MG/2ML VIAL (J2405) IV ONE
[2016-12-10 00:08] LABS: ALBUMIN 3.7 GM/DL (3.2-5.2); ALBUMIN/GLOBULIN RATIO 0.93 (1.00-1.93); ALKALINE PHOSPHATASE 113 U/L (45-117); ALT/SGPT 44 U/L (12-78); ANION GAP 6 MEQ/L (8-16); AST/SGOT 43 U/L (15-37); BILIRUBIN,DIRECT 0.1 MG/DL (0.0-0.2); BILIRUBIN,TOTAL 0.3 MG/DL (0.2-1.0); BLOOD UREA NITROGEN 15 MG/DL (7-18); CALCIUM LEVEL 9.4 MG/DL (8.5-10.1); CARBON DIOXIDE LEVEL 30 MEQ/L (21-32); CHLORIDE LEVEL 98 MEQ/L (98-107); CREATININE FOR GFR 1.02 MG/DL (0.70-1.30); GLOMERULAR FILTRATION RATE > 60.0 (>60); GLUCOSE, FASTING 258 MG/DL (70-105); SODIUM LEVEL 134 MEQ/L (136-145); TOTAL PROTEIN 7.7 GM/DL (6.4-8.2)
[2016-12-10] MEDS: MORPHINE 4 MG/ML 1ML SYRINGE IV PRN ×2 (00:09→02:38)
--- NOTE | 2016-12-10 00:48 | REP ---
Clinical: Sinus pain. Technique: Axial images through the sinuses with coronal re-formations. Comparison: 07/25/2015. Findings: Extensive, marked mucoperiosteal changes are noted throughout the ethmoid and maxillary sinuses and nasal passages with fluid levels and occlusion to the bilateral ostiomeatal complexes. Previously noted large left mucocele is no longer identified and may be related to prior surgery. The surrounding osseous structures appear intact. The mastoid air cells are clear. The temporomandibular joints are symmetric. The bilateral orbits including globes and intraconal contents appear normal. Impression: Findings compatible with marked acute/chronic sinusitis. Signed by Rick Zuniga MD 12/10/2016 12:39 A
[2016-12-10] MEDS ORDERED: BACT800T5 PO (02:11)
[2016-12-10] MEDS ORDERED: NORCO 5/325MG TABLET (BULK FOR ED) PO ONE (02:15)
[2016-12-10 02:35] VITALS: BP 136/81
[2016-12-10] MEDS ORDERED: BACTRIM 160MG/800MG DS TAB PO ONE (03:00)
== END 2016-12-10 02:58 | disposition home or self-care (01) ==
LOC: M ED 21:14
DX: J01.90 Acute sinusitis, unspecified (principal); B95.62 Methicillin resistant Staphylococcus aureus infection as the cause of diseases classified elsewhere; Z79.899 Other long term (current) drug therapy

== ENCOUNTER → 2016-12-20 | Outpatient (CLI) | payer OTHER ==
[~2016-12-20] MED LIST changes: +BACT800T5 PO
--- NOTE | 2016-12-31 00:03 | ECWPNPC ---
PATIENT NAME: NARESH CONCEPCION : 1980 GENDER: MALE VISIT DATE: 12/20/2016 DISCHARGE DATE: 12/20/16 1626 VISIT LOCKED DATE TIME: PHYSICIAN: SAKSHI HUMPHREY RESOURCE: SAKSHI HUMPHREY REASON FOR APPOINTMENT 1. WC NECK PAIN HISTORY OF PRESENT ILLNESS HISTORY OF PRESENT ILLNESS: PAIN THE PATIENT DESCRIBES THE PAIN... 36 YEAR OLD MALE WITH HISTORY OF CHRONIC NECK AND HEAD PAIN. PATIENT DESCRIBES THE PAIN ACHING, SHARP, STABBING, TENDER, SORE, AND HAVING IT ALL THE TIME WITH A PAIN SCORE OF 10/10 ON TODAY'S VISIT. 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 PATIENT STATES THAT HE HAS NOT HAD ANY SURGERY ON HIS NECK. PATIENT STATES THAT HE HAS TRIED PHYSICAL THERAPY IN THE PAST WITHOUT ANY IMPROVEMENTS IN HIS MOBILITY AND FUNCTIONALITY. PATIENT REPORTS OF DIFFICULTY SLEEPING AT NIGHT. PATIENT REPORTS THAT LAYING DOWN DOES PROVIDE SOME PAIN RELIEF. PATIENT REPORTS THAT HE HAS RADIATING PAIN TO BOTH ARMS AND SHOULDER WITH A TINGLING SENSATION IN HIS HANDS AND FINGER TIPS. PATIENT DENIES UNEXPLAINABLE WEIGHT LOSS, FEVER, CHILLS, NEW CHANGES ON HIS URINARY OR BOWEL CONTROL. FALL RISK SCREENING: SCREENING :NO FALLS IN THE PAST YEAR CURRENT MEDICATIONS TAKING DIVALPROEX SODIUM 125 MG TABLET DELAYED RELEASE 1 TABLET ORALLY ONCE A DAY TAKING LISINOPRIL-HYDROCHLOROTHIAZIDE 20-25 MG TABLET 1 TABLET ORALLY ONCE A DAY TAKING LORATADINE 10 MG TABLET 1 TABLET ORALLY ONCE A DAY TAKING METFORMIN 1000 MG TABLET 1 TAB(S) P.O. BID TAKING METFORMIN 500 MG 1 TAB ORAL AT NOON TAKING METOPROLOL TARTRATE 25 MG TABLET 1 TABLET ORALLY TWICE A DAY TAKING OMEPRAZOLE 20MG 20MG TABLET ORAL DAILY TAKING DULOXETINE HCL 20 MG CAPSULE DELAYED RELEASE PARTICLES 1 CAPSULE ORALLY DAILY TAKING TRUVADA 200-300 MG TABLET 1 TABLET ORALLY ONCE A DAY TAKING CELEBREX 200 MG CAPSULE 1 CAPSULE ORALLY ONCE A DAY TAKING SOMA 350 MG TABLET 1 TABLET NEEDED ORALLY BID NEEDED FOR SPASM AND PAIN MDD2 TAKING CYCLOBENZAPRINE HCL 10 MG TABLET 1 TABLET ORALLY BID NEEDED FOR SPASMS AND PAIN MDD2 TAKING GABAPENTIN 300 MG CAPSULE 1 CAPSULE ORALLY BEFORE BEDTIME FOR PAIN TAKING PERCOCET 7.5-325 MG TABLET 1 TABLET NEEDED ORALLY (CODE D FOR CHROINIC PAIN ) EVERY 6 HRS PRN PAIN MDD=2 TAKING VICTOZA 18 MG/3ML SOLUTION PEN-INJECTOR 20 UNITS SUBCUTANEOUS ONCE A DAY NOT-TAKING BACLOFEN 10 MG TABLET 1 TABLET WITH FOOD OR MILK ORALLY THREE TIMES A DAY, NOTES: NO LONGER HAS NOT-TAKING TIZANIDINE HCL 2 MG TABLET 1 TABLET NEEDED ORALLY THREE TIMES A DAY NOT-TAKING OXYCONTIN 15 MG TABLET ER 12 HOUR ABUSE-DETERRENT 1 TABLET ORALLY EVERY 12 HRS NOT-TAKING INVOKANA 300 MG TABLET 1 TABLET ORALLY ONCE A DAY, NOTES: YESTERDAY 0730 NOT-TAKING GABAPENTIN 600 MG TABLET 1 TABLET ORALLY THREE TIMES A DAY, NOTES: 0800 NOT-TAKING NORTRIPTYLINE HCL 25 MG CAPSULE 1 CAPSULE ORALLY ONCE A DAY, NOTES: 0800 NOT-TAKING VALIUM 5 MG TABLET ORALLY 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 REVIEW OF SYSTEMS REVIEWED BY: PROVIDER: SAKSHI HUMPHREY MD . CONSTITUTIONAL: ANY CHANGE IN YOUR MEDICAL CONDITION? YES, HAD NASAL SURGERY 2 WEEKS AGO, 12/04/16. STILL HAS SWELLING AND CONGESTION AND IS ON ANTIBIOTICS. . CHILLS NO . FEVER NO . INFECTION: DO YOU HAVE NEW INFECTIONS? NO . DO YOU HAVE HISTORY OF MRSA? NO . MUSCULOSKELETAL: ANY NEW PATTERNS OF PAIN OR NUMBNESS? NO . GASTROENTEROLOGY: ANY NEW CHANGE IN BOWEL CONTROL? NO . GENITOURINARY: ANY NEW CHANGE IN BLADDER CONTROL? NO . IS THERE A CHANCE YOU COULD BE ? NO . HEMATOLOGY/LYMPH: DO YOU TAKE ANY BLOOD THINNERS? (FOR EXAMPLE- COUMADIN, PLAVIX, AGGRENOX, PLATEL, PRADAXA, OR XARELTO) NO . WHEN WAS YOUR LAST DOSE? DATE: TIME: . NEUROLOGY: HAVE YOU FALLEN IN THE PAST 6 MONTHS? NO . ANY NEW EXTREMITY NUMBNESS OR WEAKNESS? NO . CARDIOLOGY: DO YOU HAVE A PACEMAKER OR DEFIBRILLATOR? NO . RESPIRATORY: HAVE YOU BEEN SICK IN THE PAST WEEK? NO . FEVER NO . FLU LIKE SYMPTOMS? NO . COUGH NO . INTEGUMENTARY: DO YOU HAVE ANY RASHES OR OPEN SORES? NO . ALLERGIC/IMMUNO: ARE YOU ALLERGIC TO SHELLFISH OR IV DYE? NO . ANY NEW ALLERGIES? NO . PSYCHIATRIC: DO YOU HAVE THOUGHTS OF HURTING YOURSELF OR SOMEONE ELSE? NO . ARE YOU ABUSED, NEGLECTED, OR IN AN UNSAFE ENVIRONMENT? NO . ENDOCRINOLOGY: ARE YOU DIABETIC? YES . OTHER: DO YOU NEED ANY PRESCRIPTIONS? YES . IF YES, PLEASE LIST: CELEBRIX . ANY NEW PROBLEMS WITH YOUR MEDICATIONS? NO . WHEN DID YOU LAST EAT? ____ . WHEN DID YOU LAST DRINK? ____ . WHAT DID YOU LAST DRINK? ____ . NAME OF PERSON DRIVING YOU HOME? ____ . DO YOU HAVE ANY OTHER QUESTIONS OR CONCERNS YES, NEW MRI SAYS &QUOT;NECK IS WORSE&QUOT;. . VITAL SIGNS WT 270.6 LBS, HT 68 IN, BMI 41.14 INDEX, BP 105/66 MM HG, HR 107 /MIN, RR 18 /MIN, TEMP 98.0 F, OXYGEN SAT % 96%, NA INITIALS SC 14:45, REVIEWED BY: MABEL. EXAMINATION : PATIENT IS ALERT O X 3 AND COOPERATIVE. PATIENT ABLE TO EXTEND NECK 20 DEGREE, EXTEND 15 DEGREES, LATERAL ROTATION TO THE RIGHT 15 DEGREE, AND LATERAL ROTATION TO THE LEFT 15 DEGREE WITH DISCOMFORT. PATIENT ABLE TO ABDUCT LEFT ARM COMPLETELY AND RIGHT ARM TO SHOULDER LEVEL. 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 TENDERNESS IN THE CERVICAL AREA AND PARASPINAL MUSCLE GROUP. BANDS OF TISSUE, RESTRICTION OF MOVEMENT AND PRESENCE OF TRIGGER POINTS IN THE CERVICAL AREA. MRI OF THE CERVICAL SPINE DONE ON 02/15/2017 SHOWS A DISC PROTRUSION AT C5-C6 WITH EXTENSION INTO THE RIGHT NERUAL FORAMEN RESULTING IN SEVERE NARROWING. 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 CONCEPCION'S PAIN MANAGEMENT CASE. AT THIS TIME THE PATIENT WILL CONTINUE WITH THE SAME MEDICATION REGIME BEFORE. PATIENT WILL USE GABAPENTIN FOR THE NEUROPATHIC PAIN DOWN THE LEGS, CYCLOBENZAPRINE FOR THE MUSCLE SPASMS, AND PERCOCET FOR THE SOMATIC PAIN. PATIENT DENIES ABUSE OF ANY MEDICATION, DENIES USE OF ILLEGAL SUBSTANCES, AND STATES THAT HE IS ONLY USING THE MEDICATION FOR PAIN MANAGEMENT. PATIENT BROUGHT HIS MEDICATIONS TO TODAY'S VISIT IN THEIR ORIGINAL BOTTLES. URINE TOXICOLOGY REPORT DONE IN AUGUST 2016 SHOWS CONSISTENT RESULTS WITH THE PATIENT'S MEDICATION LIST. WE DISCUSSED MOVING FORWARD WITH A CERVICAL EPIDURAL DUE TO THE RADICULAR PAIN AND THE DISC PROTRUSION. WE DISCUSSED THE RISKS, BENENFITS, AND ALTNERATIVES WITH THE INJECTION THE PATIENT WOULD LIKE TO PROCEED. INSTRUCTIONS WERE GIVEN, QUESTIONS WERE ANSWERED, PATIENT REPORTS UNDERSTANDING AND AGREES WITH THE PLAN. I, YANY CARDOZA, DOCUMENTED THE ABOVE INFORMATION ACTING A SCRIBE FOR DR. HUMPHREY. I HAVE REVIEWED THE ABOVE DOCUMENT, WRITTEN BY YANY CHILDERS AND I VERIFY THAT IT IS ACCURATE. PROCEDURES PN WORKMANS' COMP OPINION IN YOUR OPINION, WAS THE INCIDENT THAT THE PATIENT DESCRIBED THE COMPETENT MEDICAL CAUSE OF THIS INJURY/ILLNESS? YES ARE THE PATIENT'S COMPLAINTS CONSISTENT WITH HIS/HER HISTORY OF THE INJURY/ILLNESS? YES IS THE PATIENT'S HISTORY OF THE INJURY/ILLNESS CONSISTENT WITH YOUR OBJECTIVE FINDING? YES WHAT IS THE PERCENTAGE OF TEMPORARY IMPAIRMENT? TOTAL = 100% IS THE PATIENT WORKING? NO DOCTOR ON SITE: SAKSHI ALFREDO MD PROCEDURE CODES FA211 ESTABILISHED PATIENT [facility] CHARGE G8427 DOC MEDS VERIFIED W/PT OR RE G8427 DOC MEDS VERIFIED W/PT OR RE DISPOSITION & COMMUNICATION FOLLOW UP 6 WEEKS ELECTRONICALLY SIGNED BY SAKSHI HUMPHREY MD ON 12/30/2016 AT 07:55 PM EDT DISCLAIMER : THIS IS A VISIT SUMMARY EXTRACTED FROM THE [employer] CHART. IT IS NOT A COPY OF THE [employer] PROGRESS NOTE. VINICIO
== END ==
LOC: M PAIN 14:40
PROVIDERS: ATTEND Anesthesiology
DX: M79.1 Myalgia (principal); M50.122 Cervical disc disorder at C5-C6 level with radiculopathy; E11.9 Type 2 diabetes mellitus without complications; I10 Essential (primary) hypertension; Z79.84 Long term (current) use of oral hypoglycemic drugs; Z79.4 Long term (current) use of insulin; Z79.891 Long term (current) use of opiate analgesic; Z79.899 Other long term (current) drug therapy

== ENCOUNTER → 2017-02-28 | Outpatient (CLI) | payer OTHER ==
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
== END ==
LOC: M PAIN 13:30
PROVIDERS: ATTEND Nurse Practitioner Family
DX: G89.29 Other chronic pain (principal); M79.1 Myalgia; M50.122 Cervical disc disorder at C5-C6 level with radiculopathy; E11.9 Type 2 diabetes mellitus without complications; I10 Essential (primary) hypertension; Z79.4 Long term (current) use of insulin; Z79.899 Other long term (current) drug therapy

== ENCOUNTER → 2017-04-08 | Outpatient (CLI) | payer OTHER ==
--- NOTE | 2017-04-08 11:02 | REP ---
MAXILLOFACIAL CT WITHOUT CONTRAST: HISTORY: Chronic maxillary sinusitis. COMPARISON: 12/10/2016 The patient is status post bilateral partial ethmoidectomy. Minimal mucosal thickening is present in the maxillary , sphenoid and left frontal sinuses. The remaining sinuses are clear. The osteomeatal units are patent. The middle and inferior nasal turbinates are partially paradoxical. There is minimal deviation of the nasal septum to the left. The cribriform plate, medial abbott of the orbits and optic canals are intact. The carotid canals form a segment of the posterolateral abbott in the sphenoid sinus. The sphenoid sinus septum inserts into the left interval carotid canal wall. IMPRESSION: 1. Postoperative change as described above. 2. Sinus mucosal thickening as described above. Signed by Alvarez Hutton MD 04/08/2017 11:16 A
== END ==
LOC: M RAD 10:17
PROVIDERS: ATTEND Otolaryngology
DX: J32.4 Chronic pansinusitis (principal)

== ENCOUNTER → 2017-06-11 | Outpatient (CLI) | payer OTHER | LOC: M PAIN 13:45 | DX: G89.29 Other chronic pain (principal); M79.1 Myalgia; M50.122 Cervical disc disorder at C5-C6 level with radiculopathy; E11.9 Type 2 diabetes mellitus without complications; I10 Essential (primary) hypertension; Z79.84 Long term (current) use of oral hypoglycemic drugs; Z79.891 Long term (current) use of opiate analgesic | CPT/HCPCS: G0463 ==

== ENCOUNTER → 2017-08-12 | Outpatient (CLI) | payer OTHER | LOC: M PAIN 09:45 | DX: M96.1 Postlaminectomy syndrome, not elsewhere classified (principal); M50.122 Cervical disc disorder at C5-C6 level with radiculopathy; E11.9 Type 2 diabetes mellitus without complications; I10 Essential (primary) hypertension; Z79.84 Long term (current) use of oral hypoglycemic drugs; Z79.891 Long term (current) use of opiate analgesic; Z79.899 Other long term (current) drug therapy | CPT/HCPCS: G0463 ==

== ENCOUNTER → 2017-12-13 | Outpatient (CLI) | payer OTHER | LOC: M PAIN 13:00 | DX: M50.122 Cervical disc disorder at C5-C6 level with radiculopathy (principal); M47.812 Spondylosis without myelopathy or radiculopathy, cervical region; M96.1 Postlaminectomy syndrome, not elsewhere classified; E11.9 Type 2 diabetes mellitus without complications; I11.0 Hypertensive heart disease with heart failure; Z79.84 Long term (current) use of oral hypoglycemic drugs; Z79.899 Other long term (current) drug therapy; Z79.891 Long term (current) use of opiate analgesic | CPT/HCPCS: G0463 ==

== ENCOUNTER → 2018-01-24 | Outpatient (CLI) | payer OTHER | LOC: M PAIN 09:15 | DX: M50.122 Cervical disc disorder at C5-C6 level with radiculopathy (principal); M47.812 Spondylosis without myelopathy or radiculopathy, cervical region; M96.1 Postlaminectomy syndrome, not elsewhere classified; E11.9 Type 2 diabetes mellitus without complications; I10 Essential (primary) hypertension; Z79.84 Long term (current) use of oral hypoglycemic drugs; Z79.891 Long term (current) use of opiate analgesic | CPT/HCPCS: G0463 ==

== ENCOUNTER → 2018-03-26 | Outpatient (CLI) | payer OTHER ==
[~2018-03-26] MED LIST changes: -ACET30TAB PO; -ALOG25TA PO; -ATOR1TAB21 PO; -AUGM500T34 PO; -BACL1TAB9 PO; -BACT800T5 PO; -BASA100I SC; +BUPIVACAINE HCL 0.25% 10 ML VIAL As Ordered; +BUPIVACAINE HCL 0.25% 30 ML VIAL As Ordered; -CELE1CAP4 PO; -CETI10TA PO; -CLAR1TAB2 PO; -CYCL10TA PO; -DIVA125T PO; -DULO1CAP PO; -FLON0.054; -GABA-282 PO; -GABA600T PO; -INVO100T PO; -LISI20TA3 PO; -MELO7.5S PO; -METF500T13 PO; -METO25TA4 PO; -METO25TAB PO; -OMEP20CA3 PO; -OXYC1TAB15 PO; -PAME10CA PO; -SM N; -TOPA100T12 PO; +TRIAMCINOLONE ACETONIDE SUSP 40 MG/ML VIAL (J3301) As Ordered; -VERA240T14 PO; -[UNRECOGNIZED DRUG - OTHER] PO; +diazePAM 5 MG TAB As Ordered
== END ==
LOC: M PAIN 10:00
DX: G89.29 Other chronic pain (principal); M54.81 Occipital neuralgia; E11.9 Type 2 diabetes mellitus without complications; I10 Essential (primary) hypertension; Z79.891 Long term (current) use of opiate analgesic; Z79.899 Other long term (current) drug therapy; Z79.84 Long term (current) use of oral hypoglycemic drugs
CPT/HCPCS: J3301

== ENCOUNTER → 2018-06-09 | Outpatient (CLI) | payer OTHER ==
[~2018-06-09] MED LIST changes: +ACET30TAB PO; +ALOG25TA PO; +ATOR1TAB21 PO; +AUGM500T34 PO; +BACL1TAB9 PO; +BACT800T5 PO; +BASA100I SC; -BUPIVACAINE HCL 0.25% 10 ML VIAL As Ordered; -BUPIVACAINE HCL 0.25% 30 ML VIAL As Ordered; +CELE1CAP4 PO; +CETI10TA PO; +CLAR1TAB2 PO; +CYCL10TA PO; +DIVA1TAB48 PO; +DULO1CAP PO; +FLON0.054; +GABA-843 PO; +GABA600T PO; +INVO100T PO; +LISI20TA3 PO; +MELO7.5S PO; +METF500T13 PO; +METO25TA4 PO; +METO25TAB PO; +OMEP20CA3 PO; +OXYC1TAB15 PO; +PAME10CA PO; +SM N; +TOPA100T12 PO; -TRIAMCINOLONE ACETONIDE SUSP 40 MG/ML VIAL (J3301) As Ordered; +VERA240T14 PO; +[UNRECOGNIZED DRUG - OTHER] PO; -diazePAM 5 MG TAB As Ordered
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
== END ==
LOC: M PAIN 12:30
PROVIDERS: ATTEND Anesthesiology
DX: M79.18 Myalgia, other site (principal); M50.122 Cervical disc disorder at C5-C6 level with radiculopathy; M54.81 Occipital neuralgia; E11.9 Type 2 diabetes mellitus without complications; I10 Essential (primary) hypertension; Z79.84 Long term (current) use of oral hypoglycemic drugs; Z79.899 Other long term (current) drug therapy; Z79.891 Long term (current) use of opiate analgesic

== ENCOUNTER → 2018-08-25 | Outpatient (CLI) | payer OTHER ==
[~2018-08-25] MED LIST changes: +BUSP15TA47 PO; -GABA600T PO; +GABA600T4 PO; +INSUH10VL SC; +OXYC10TA3 PO
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
== END ==
LOC: M PAIN 14:15
PROVIDERS: ATTEND Anesthesiology
DX: M79.18 Myalgia, other site (principal); M96.1 Postlaminectomy syndrome, not elsewhere classified; E11.9 Type 2 diabetes mellitus without complications; I10 Essential (primary) hypertension; E66.01 Morbid (severe) obesity due to excess calories; Z68.41 Body mass index [BMI] 40.0-44.9, adult; Z79.4 Long term (current) use of insulin; Z79.899 Other long term (current) drug therapy

== ENCOUNTER 2018-08-27 10:45 | Emergency (ER) | payer OTHER ==
[~2018-08-27] VITALS: Ht 172.7 cm; Wt 127.0 kg
[~2018-08-27 10:45] MED LIST changes: -BUSP15TA47 PO; -INSUH10VL SC; -OXYC10TA3 PO
[2018-08-27] MEDS ORDERED: BACL1TAB9 PO (11:30)
[2018-08-27] MEDS ORDERED: BUSP15TA47 PO (11:30)
[2018-08-27] MEDS ORDERED: OXYC10TA3 PO (11:30)
[2018-08-27] MEDS ORDERED: INSUH10VL SC (11:30)
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
--- NOTE | 2018-08-27 13:41 | REP ---
LUMBOSACRAL SPINE: Views of the lumbosacral spine performed. There is no fracture or dislocation. There is normal lumbar lordosis. There is partial lumbarization of S1 indicating a transistional lumbar vertebral body. Mild spurring is noted of L5. Disc spaces appear relatively well preserved. Posterior elements are intact. IMPRESSION: No fracture or dislocation. Partial lumbarization of S1. Electronically Signed by Johnny Stone MD 08/27/2018 11:04 P
[2018-08-27 14:14] VITALS: BP 124/80
[2018-08-27] MEDS ORDERED: KETOROLAC 60 MG/2 ML VIAL (J1885) IM ONE (14:15)
== END 2018-08-27 14:39 | disposition home or self-care (01) ==
LOC: M ED 10:45
DX: G89.29 Other chronic pain (principal); M54.2 Cervicalgia; M54.6 Pain in thoracic spine; I10 Essential (primary) hypertension; E11.9 Type 2 diabetes mellitus without complications; Z79.899 Other long term (current) drug therapy; Z79.4 Long term (current) use of insulin; Z98.1 Arthrodesis status
CPT/HCPCS: 72072; 72110; 72125; 96372; 99283; J1885

== ENCOUNTER → 2018-09-02 | Outpatient (CLI) | payer OTHER ==
[~2018-09-02] MED LIST changes: +BUPIVACAINE HCL 0.25% 10 ML VIAL As Ordered ONE; +BUPIVACAINE HCL 0.25% 30 ML VIAL As Ordered ONE; +BUSP15TA47 PO; +INSUH10VL SC; +OXYC10TA3 PO; +TRIAMCINOLONE ACETONIDE SUSP 40 MG/ML VIAL (J3301) As Ordered ONE; +diazePAM 5 MG TAB As Ordered ONE
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
== END ==
LOC: M PAIN 11:45
PROVIDERS: ATTEND Anesthesiology
DX: M79.18 Myalgia, other site (principal); E11.9 Type 2 diabetes mellitus without complications; I10 Essential (primary) hypertension; M54.2 Cervicalgia; Z79.4 Long term (current) use of insulin; Z79.891 Long term (current) use of opiate analgesic; Z79.899 Other long term (current) drug therapy
CPT/HCPCS: 20553; J3301

== ENCOUNTER → 2018-11-28 | Outpatient (CLI) | payer OTHER ==
[~2018-11-28] MED LIST changes: +ACET-716 PO; -ACET30TAB PO; -BUPIVACAINE HCL 0.25% 10 ML VIAL As Ordered ONE; -BUPIVACAINE HCL 0.25% 30 ML VIAL As Ordered ONE; +METO1TAB63 PO; -METO25TAB PO; +NICO1PAT15; -SM N; -TRIAMCINOLONE ACETONIDE SUSP 40 MG/ML VIAL (J3301) As Ordered ONE; -VERA240T14 PO; +VERA240T3 PO; -diazePAM 5 MG TAB As Ordered ONE
--- NOTE | 2018-12-08 00:07 | ECWPNPC ---
PATIENT NAME: NARESH CONCEPCION : 1980 GENDER: MALE VISIT DATE: 11/28/2018 DISCHARGE DATE: 11/28/18 1307 VISIT LOCKED DATE TIME: PHYSICIAN: SAKSHI HUMPHREY MD RESOURCE: SAKSHI HUMPHREY MD REASON FOR APPOINTMENT 1. W/C NECK-REVIEW TO & NOTIFCATION TO [facility] NEED PLAN TO [facility] IN WRITING HISTORY OF PRESENT ILLNESS HISTORY OF PRESENT ILLNESS: PAIN THE PATIENT DESCRIBES THE PAIN... 38 YEAR OLD MALE PATIENT WITH A HISTORY OF CHRONIC NECK PAIN. THE PATIENT DESCRIBES THE PAIN ACHING, SORE, TENDER, AND CONTINUOUS WITH A PAIN SCORE OF 6-7/10 DEPENDING ON PHYSICAL ACTIVITY AND MEDICATION USE. 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 THE PATIENT SAYS THAT THE PAIN STARTS IN HIS NECK AND INTO HIS SHOULDERS. THE PATIENT REPORTS HAVING NECK SURGERY IN MAY 2017, BUT SAYS HIS PAIN HAS PERSISTED. THE PATIENT IS CURRENTLY USING 2 OXYCODONE PER DAY AND 3 CYCLOBENZAPRINE PER DAY TO AID IN PAIN RELIEF. THE PATIENT SAYS THAT THE USE OF THESE MEDICATIONS HELP HIM REMAIN MOBILE AND FUNCTIONAL, BUT HE STILL HAS SOME PAIN. PATIENT DENIES UNEXPLAINABLE WEIGHT LOSS, FEVER, CHILLS, NEW CHANGES ON HIS URINARY OR BOWEL CONTROL. FALL RISK SCREENING: SCREENING :NO FALLS REPORTED IN THE LAST YEAR CURRENT MEDICATIONS TAKING DIVALPROEX SODIUM 125 MG TABLET DELAYED RELEASE 1 TABLET ORALLY ONCE A DAY TAKING LISINOPRIL-HYDROCHLOROTHIAZIDE 20-25 MG TABLET 1 TABLET ORALLY ONCE A DAY TAKING METFORMIN 1000 MG TABLET 1 TAB(S) P.O. BID TAKING METFORMIN 500 MG 1 TAB ORAL AT NOON TAKING METOPROLOL TARTRATE 25 MG TABLET 1 TABLET ORALLY TWICE A DAY TAKING OMEPRAZOLE 20MG 20MG TABLET ORAL TWICE DAILY TAKING DULOXETINE HCL 60 MG CAPSULE DELAYED RELEASE PARTICLES 1 CAPSULE ORALLY DAILY TAKING FLUTICASONE PROPIONATE 50 MCG/ACT SUSPENSION 1 SPRAY IN EACH NOSTRIL NASALLY ONCE A DAY TAKING TRULICITY 0.75 MG/0.5ML SOLUTION PEN-INJECTOR SUBCUTANEOUS , NOTES: WEEKLY TAKING ATORVASTATIN CALCIUM 40 MG TABLET 1 TABLET ORALLY ONCE A DAY TAKING NOVOLOG 100 UNIT/ML SOLUTION 8 UNITS SUBCUTANEOUS DAILY AT DINNER TIME TAKING BUSPIRONE HCL 7.5 MG TABLET 1 TABLET ORALLY TWICE A DAY TAKING CYCLOBENZAPRINE HCL 10 MG TABLET 1 TABLET NEEDED ORALLY THREE TIMES A DAY TAKING PERCOCET 10-325 MG TABLET 1 TABLET NEEDED ORALLY EVERY 6 HRS PRN PAIN MDD=2 NOT-TAKING BACLOFEN 10 MG TABLET 1 TABLET WITH FOOD OR MILK ORALLY THREE TIMES A DAY MEDICATION LIST REVIEWED AND RECONCILED WITH THE PATIENT PAST MEDICAL HISTORY DIABETES HTN (HYPERTENSION) NECK PAIN ALLERGIES N.K.D.A. SURGICAL HISTORY COLONOSCOPY RT CARPEL TUNNEL 2016 LEFT CARPEL TUNNEL 2017 NECK PLATE AND SCREWS MAY 2017 FAMILY HISTORY FATHER: ALIVE, GLAUCOMA, DIAGNOSED WITH HYPERTENSION, OTHER MOTHER: ALIVE, HYPERTHYROID, HYPERTENSION 1 BROTHER(S) - HEALTHY. 2DAUGHTER(S) - HEALTHY. SOCIAL HISTORY GENERAL: TOBACCO USE ARE YOU A:[facility] PAIN CLINIC PFS, CLERGY, PUBLIC HEALTH REFERRALS PFS REFERRAL NEEDED?NO CLERGY REFERRAL NEEDED?NO PUBLIC HEALTH REFERRAL NEEDED?NO WAS THE PROVIDER NOTIFIED OF ANY PERTINENT INFO? N/A HAS THE PATIENT BEEN EDUCATED REGARDING HIS/HER PLAN OF CARE?YES HAS THE PATIENT BEEN EDUCATED REGARDING PAIN, THE RISK FOR PAIN, THE IMPORTANCE OF EFFECTIVE PAIN MANAGEMENT, AND THE PAIN ASSESSMENT PROCESS?YES LATEX QUESTIONNAIRE LATEX ALLERGY : HAVE YOU EVER DEVELOPED ANY TYPE OF REACTION AFTER HANDLING LATEX PRODUCTS SUCH RUBBER GLOVES, CONDOMS, DIAPHRAGMS, BALLOONS, SOCKS, OR UNDERWEAR?NO LATEX ALLERGY : HAVE YOU EVER DEVELOPED ANY TYPE OF REACTION DURING OR AFTER DENTAL APPOINTMENT, VAGINAL/RECTAL EXAMINATION, SURGICAL PROCEDURE, OR ANY OTHER EXPOSURE?NO LATEX RISK : HAVE YOU EVER HAD ANY DIFFICULTY BREATHING OR HIVES AFTER EATING OR HANDLING ANY FRUITS, OR VEGETABLES; SUCH KIWI, BANANAS, STONE FRUITS, OR CHESTNUTSNO LATEX RISK : DO YOU HAVE A PREVIOUS PERSONAL HISTORY OF MORE THAN NINE SURGERIES, SPINA BIFIDA, OR REPEATED CATHERTIZATIONS? NO LATEX RISK : ARE YOU FREQUENTLY EXPOSED TO LATEX PRODUCTS IN YOUR OCCUPATION?NO DATE ASKED : 09/26/2018 ADVANCE DIRECTIVE ADVANCE DIRECTIVE DISCUSSED WITH PATIENT:YES HCP DOUGLAS CONCEPCION [phone] EDUCATION LEVEL OF EDUCATION:HIGH SCHOOL JAINISM [id number] NONE LANGUAGE LANGUAGES SPOKEN:MONTENEGRIN DOMESTIC VIOLENCE DO YOU FEEL SAFE IN YOUR ENVIRONMENT?YES ALCOHOL SCREENING DID YOU HAVE A DRINK CONTAINING ALCOHOL IN THE PAST YEAR?NO POINTS0 INTERPRETATIONNEGATIVE RECREATIONAL DRUG USE DRUG USE?NO LEARNING BARRIERS / SPECIAL NEEDS BARRIERS TO LEARNING?NO HEARING IMPAIRED?NO VISION IMPAIRED?YES :CORRECTIVE LENSES COGNITIVELY IMPAIRED?NO READINESS TO LEARN?YES LEARNING PREFERENCES?NO LEARNING CAPABILITIES PRESENT?YES EMOTIONAL BARRIERS?NO SPECIAL DEVICES?NO STEAM OVEN 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 HOSPITALIZATION/MAJOR DIAGNOSTIC PROCEDURE NO HOSPITALIZATION HISTORY. REVIEW OF SYSTEMS REVIEWED BY: PROVIDER: SAKSHI HUMPHREY MD . CONSTITUTIONAL: ANY CHANGE IN YOUR MEDICAL CONDITION? NO . CHILLS NO . FEVER NO . INFECTION: DO YOU HAVE NEW INFECTIONS? NO . DO YOU HAVE HISTORY OF MRSA? NO . MUSCULOSKELETAL: ANY NEW PATTERNS OF PAIN OR NUMBNESS? NO . GASTROENTEROLOGY: ANY NEW CHANGE IN BOWEL CONTROL? NO . GENITOURINARY: ANY NEW CHANGE IN BLADDER CONTROL? NO . IS THERE A CHANCE YOU COULD BE ? NO . HEMATOLOGY/LYMPH: DO YOU TAKE ANY BLOOD THINNERS? (FOR EXAMPLE- COUMADIN, PLAVIX, AGGRENOX, PLATEL, PRADAXA, OR XARELTO) NO . WHEN WAS YOUR LAST DOSE? DATE: TIME: . NEUROLOGY: HAVE YOU FALLEN IN THE PAST 12 MONTHS? NO . ANY NEW EXTREMITY NUMBNESS OR WEAKNESS? NO . CARDIOLOGY: DO YOU HAVE A PACEMAKER OR DEFIBRILLATOR? NO . RESPIRATORY: HAVE YOU BEEN SICK IN THE PAST WEEK? NO . FEVER NO . FLU LIKE SYMPTOMS? NO . COUGH NO . INTEGUMENTARY: DO YOU HAVE ANY RASHES OR OPEN SORES? NO . ALLERGIC/IMMUNO: ARE YOU ALLERGIC TO IV DYE? NO . ANY NEW ALLERGIES? NO . PSYCHIATRIC: DO YOU HAVE THOUGHTS OF HURTING YOURSELF OR SOMEONE ELSE? NO . ARE YOU ABUSED, NEGLECTED, OR IN AN UNSAFE ENVIRONMENT? NO . ENDOCRINOLOGY: ARE YOU DIABETIC? NO . OTHER: DO YOU NEED ANY PRESCRIPTIONS? NO . IF YES, PLEASE LIST: ____ . ANY NEW PROBLEMS WITH YOUR MEDICATIONS? NO . WHEN DID YOU LAST EAT? ____ . WHEN DID YOU LAST DRINK? ____ . WHAT DID YOU LAST DRINK? ____ . NAME OF PERSON DRIVING YOU HOME? ____ . DO YOU HAVE ANY OTHER QUESTIONS OR CONCERNS NO . VITAL SIGNS WT 281 LBS, HT 68 IN, BMI 42.72 INDEX, BP 128/81 MM HG, HR 100 /MIN, RR 18 /MIN, TEMP 96.9 F, OXYGEN SAT % 96%, NA INITIALS AW 1014, REVIEWED BY: BV. EXAMINATION GENERAL EXAMINATION: PATIENT IS ALERT O X 3 AND COOPERATIVE. PAIN INCREASES OVER THE CERVICAL FACET JOINTS WITH EXTENSION AND LATERAL ROTATION OF THE NECK. MRI OF THE CERVICAL SPINE DONE ON 09/16/2018 SHOWS FACET ARTHROPATHY CHANGES AT MULTIPLE LEVELS AND POST LAMINECTOMY CHANGES. 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 CONCEPCION'S PAIN MANAGEMENT CASE. DUE TO THE CERVICAL SPONDYLOSIS AND THE PATIENT HAVING AN ACUTE EXACERBATION OF HIS CHRONIC PAIN CONDITION, I WOULD LIKE TO MOVE FORWARD WITH A BILATERAL C2-C3, C3-C4 CERVICAL THERAPEUTIC FACET BLOCK AT THIS TIME. WE DISCUSSED THE BENEFITS, RISKS, AND ALTERNATIVES OF THE INJECTION AND THE PATIENT WOULD LIKE TO PROCEED. I WILL REDUCE THE PATIENT'S CYCLOBENZAPRINE TO 75 TABLETS PER MONTH FOR ACUTE SPASMS AND PAIN AND WE WILL TRY TO REDUCE IT MORE AFTER THE INJECTION. THE PATIENT WILL CONTINUE USING THE OXYCODONE FOR SOMATIC PAIN. ISTOP _#[id number] WAS REVIEWED. URINE TOXICOLOGY DONE ON 06/09/2018 SHOWS CONCURRENT RESULTS AND I WILL REPEAT IT TODAY. THE PATIENT WILL FOLLOW UP IN 3 MONTHS. INSTRUCTIONS WERE GIVEN, QUESTIONS WERE ANSWERED, PATIENT REPORTS UNDERSTANDING AND AGREES WITH THE PLAN. I, MICA JORDAN, DOCUMENTED THE ABOVE INFORMATION ACTING A SCRIBE FOR DR. HUMPHREY. I HAVE REVIEWED THE ABOVE DOCUMENT, WRITTEN BY MICA CHILDERS AND I VERIFY THAT IT IS ACCURATE. . OTHERS REFILL CYCLOBENZAPRINE HCL TABLET, 10 MG, 1 TABLET NEEDED, ORALLY FOR SPASMS AND PAIN, THREE TIMES A DAY MDD3, 30 DAY(S), 75, REFILLS 1 REFILL PERCOCET TABLET, 10-325 MG, 1 TABLET NEEDED, ORALLY, EVERY 6 HRS PRN PAIN MDD=2, 30 DAYS, 60, REFILLS 0 PROCEDURES PN WORKMANS' COMP OPINION IN YOUR OPINION, WAS THE INCIDENT THAT THE PATIENT DESCRIBED THE COMPETENT MEDICAL CAUSE OF THIS INJURY/ILLNESS? YES ARE THE PATIENT'S COMPLAINTS CONSISTENT WITH HIS/HER HISTORY OF THE INJURY/ILLNESS? YES IS THE PATIENT'S HISTORY OF THE INJURY/ILLNESS CONSISTENT WITH YOUR OBJECTIVE FINDING? YES WHAT IS THE PERCENTAGE OF TEMPORARY IMPAIRMENT? TOTAL = 100% IS THE PATIENT WORKING? NO DOCTOR ON SITE: SAKSHI ALFREDO MD PREVENTIVE MEDICINE PAIN CLINIC TEACHING: PROCEDURE TEACHING PT GIVEN WRITTEN AND VERBAL EDUCATION ON FACET BLOCK INJECTIONS. PT ALSO GIVEN WRITTEN AND VERBAL PRE PROCEDURE INSTRUCTIONS. PT VERBALIZES UNDERSTANDING OF ALL EDUCATION AND INSTRUCTIONS. ALMA ROSA BURROUGHS 11/28/2018 11:59:01 AM > . PROCEDURE CODES FA211 ESTABILISHED PATIENT [facility] FACILITY CHARGE G8427 CURRENT MEDS W/DOSAGES DOCUMENTED G8730 PAIN ASSESS POS TOOL F/U PLAN DOC DISPOSITION & COMMUNICATION FOLLOW UP 3 MONTHS (REASON: W/C NECK) ELECTRONICALLY SIGNED BY SAKSHI HUMPHREY MD, MD ON 12/07/2018 AT 08:59 PM EDT DISCLAIMER : THIS IS A VISIT SUMMARY EXTRACTED FROM THE [employer] CHART. IT IS NOT A COPY OF THE [employer] PROGRESS NOTE. VINICIO
== END ==
LOC: M PAIN 10:15
PROVIDERS: ATTEND Anesthesiology
DX: M47.812 Spondylosis without myelopathy or radiculopathy, cervical region (principal); M96.1 Postlaminectomy syndrome, not elsewhere classified; E11.9 Type 2 diabetes mellitus without complications; I10 Essential (primary) hypertension; Z79.84 Long term (current) use of oral hypoglycemic drugs; Z79.891 Long term (current) use of opiate analgesic; Z79.899 Other long term (current) drug therapy

== ENCOUNTER 2018-12-21 21:37 | Inpatient (IN) | payer OTHER ==
[~2018-12-21] VITALS: Ht 172.7 cm; Wt 126.5 kg
[2018-12-21 22:45] VITALS: BP 102/53
[2018-12-21 23:37] LABS: MAGNESIUM LEVEL 1.6 MG/DL (1.8-2.4); PHOSPHORUS LEVEL 7.1 MG/DL (2.5-4.9)
[2018-12-21] MEDS ORDERED: LACTATED RINGER'S 1000 ML IV ONE (23:45)
[2018-12-22] MEDS ORDERED: MAG SULF 1GM/100ML (MAG RUN) 1 GM in APPROPRIATE DILUENT 1 EA IV SCH ×2
[2018-12-22] MEDS ORDERED: MAG SULF 1GM/100ML (MAG RUN) 1 GM in APPROPRIATE DILUENT 1 EA IV ONE ×2
[2018-12-22 00:06] LABS: BLOOD UREA NITROGEN 42 MG/DL (7-18); CALCIUM LEVEL 7.1 MG/DL (8.5-10.1); CARBON DIOXIDE LEVEL 23 MEQ/L (21-32); CHLORIDE LEVEL 93 MEQ/L (98-107); CREATININE FOR GFR 6.21 MG/DL (0.70-1.30); GLOMERULAR FILTRATION RATE 10.7 (>60); GLUCOSE, FASTING 274 MG/DL (70-100); LIPASE 64 U/L (73-393); POTASSIUM SERUM 3.5 MEQ/L (3.5-5.1); SODIUM LEVEL 129 MEQ/L (136-145); TROPONIN I < 0.02 NG/ML (< 0.10)
[2018-12-22 00:09] LABS: HEMOGLOBIN A1c 9.7 %
[2018-12-22] MEDS ORDERED: GLUCAGON FOR INJ 1 MG VIAL (J1610) SC PRN (00:15)
[2018-12-22] MEDS ORDERED: GLUCOSE 4 GM CHEW TABLET PO PRN (00:15)
[2018-12-22] MEDS ORDERED: DEXTROSE 50% 50 ML SYRINGE IV PRN (00:15)
[2018-12-22] MEDS ORDERED: LACTATED RINGER'S 1000 ML IV ONE (00:45)
--- NOTE | 2018-12-22 00:48 | REPVR ---
EXAM: US Retroperitoneal Limited, Kidneys EXAM DATE/TIME: 12/21/2018 12:00 AM CLINICAL HISTORY: 38 years old, male; Abnormal findings; Abnormal lab test; Abnormal kidney function lab tests; Additional info: Arf TECHNIQUE: Imaging protocol: Real-time ultrasound of the retroperitoneum with image documentation. Examination was focused on the kidneys. COMPARISON: No relevant prior studies available. FINDINGS: Right kidney: 12.9 cm in length. No stones. No hydronephrosis. Left kidney: 13 cm in length. No stones. No hydronephrosis. Bladder: No definite bladder wall thickening. Bilateral ureteral jets identified. IMPRESSION: No acute sonographic findings. Electronically signed by: Narciso Beltre On 12/22/2018 00:48:33 AM
--- NOTE | 2018-12-22 01:01 | HPEPDOC ---
[facility] Medical History & Physical Date of Admission Dec 21, 2018 Date of Service: Dec 21, 2018 History and Physical PCP: Jane Osorio CHIEF COMPLAINT: Nausea vomiting fever HISTORY OF PRESENT ILLNESS: Patient presents with a three-day history of nausea vomiting left upper quadrant abdominal pain radiating around to his back associated with fever. He tells me that he has not made any urine for the last several days tells me that he has had diarrhea associated with this. Telemetry is nonbloody tells me that he is unable been unable to keep his diabetes medication down and uses been feeling weaker and weaker until the point he presented to the emergency room in [place] today. Patient missed me that he been taking significant amount of Motrin and Mucinex and Tylenol Sinus for the last several days as well, he is chronically deviated nasal septum which he said surgery for the past seasonal allergies and he has fairly chronic sinus irritation. The patient does complain of cough and tells me that at the onset of the symptoms 4 days ago he initially felt as though he had the flu Otherwise patient denies weight loss, hair loss, headache, visual changes, chest pain, shortness of breath, muscle aches, worsening arthritis, change in mood PAST MEDICAL HISTORY: 1. Diabetes. 2. Hypertension. 3. Chronic pain associated with a workplace injury 4. Mood disorder. 5." Rapid heart rate" HOME MEDICATIONS: Please see below. ALLERGIES: Please see below PAST SURGICAL HISTORY: 1. Carpal tunnel release 2. 2. Deviated nasal septum repair. 3. "Neck surgery". SOCIAL HISTORY: Lives with: and children, Employment: Disabled since a cat walk fell on his neck at workplace injury years ago, Tobacco use: Denies. ETOH: Denies, Illicit drug use: Denies, Tattoos done unprofessionally: Denies, CODE STATUS: Full code FAMILY HISTORY:Reviewed and noncontributory REVIEW OF SYSTEMS: 10 systems reviewed and negative other than HPI PHYSICAL EXAMINATION: VITAL SIGNS: Temperature afebrile, pulse 120, respiratory rate 18, blood pressure 106/59, pulse oximetry 93 % on room air. GENERAL: Pleasant obese middle-aged man lying flat in bed awake alert oriented speaking in complete sentences no acute distress HEENT: Very dry mucous membranes no elevation and CVP CARDIOVASCULAR: S1 S2 regular no additional heart sounds appreciated does not appear tachycardic at the time of my exam. RESPIRATORY: Clear to auscultation bilaterally. ABDOMINAL: Bowel sounds present abdomen soft and tender in the left upper quadrant, obese EXTREMITIES: No clubbing cyanosis or edema NEUROLOGICAL: Spontaneously moves all 4 extremities cranial 2 through 12 grossly intact no gross focal deficits appreciated PSYCHOLOGICAL: Appropriate LABORATORY DATA: See below. MICROBIOLOGY: Please see below. IMAGING: None at our facility ASSESSMENT & PLAN: This is a 38-year-old man with acute renal failure. PROBLEMS: 1. Acute renal failure: The etiology is not immediately clear with only have recent blood work from 2 years ago which displays essentially normal renal function. I will check renal ultrasound to assess for duration, I will also assess for hydronephrosis although I feel this is less likely. I'll place a Davis catheter for critical monitoring and sample collection. He is on a thiazide diuretic normally I will check check a fractional excretion of urea nitrogen as well as a UA to assess for any active sediment. He received a liter and a half of IV fluids and [facility] he still appears to be quite dehydrated with additional 2 L of lactated Ringer's at this time. I suspect patient will benefit from a nephrology consult is what he was transferred to this facility for. 2. Fever: Etiology once again is not quite clear he has had some abdominal symptoms with diarrhea, changes in his urinary habits he is also had cough. At this time I will panculture check a chest x-ray and put him on empiric Zosyn. I'll provide him with IV fluids check a pro-calcitonin. He did have an elevated lactic acid as well as by review of the labs in DKA. Which she does not have here. 3. Abdominal pain: He has had significant nausea and vomiting he certainly could have some gastritis I'll provide a clear liquid consistent carb diet with a PPI patient did have a CT scan to [facility] the abdomen which did not reveal any significant abnormality as per report from the ED provider. 4. Hypovolemic hyponatremia: Also likely the etiology for his hypochloremia. We'll continue to provide IV fluids and recheck a basic metabolic panel at 3 AM 5. Diabetes mellitus: Review of the labs were [place] showed he was in DKA he is not in DKA here on his pulmonary blood work. I will check hemoglobin A1c provide him with sliding-scale insulin. We'll hold his oral agents 6. Hypomagnesemia and hyperphosphatemia: Likely related to his acute renal failure: I'll provide him with magnesium supplementation and placed nephrology consult in the morning 7. Rapid heart rate: Patient's states this patient otherwise cannot remove the details of this but he is on metoprolol. For the time being we will continue 8. Hypertension: I will hold hydrochlorothiazide and lisinopril in the setting of his acute renal failure 9. Mood disorder: Continue with duloxetine and divalproex 10. Chronic pain: Continue with cyclobenzaprine and Percocet DVT PROPHYLAXIS:Heparin twice a day DISPOSITION: Progressive care unit, renal function is guarded given the degree of failure she does renal function fail to improve quickly may need to consider hemodialysis Laboratory Data Labs 24H Laboratory Tests 2 12/21/18 23:10: Anion Gap 13, Glomerular Filtration Rate 10.7L, Estimated Mean Plasma Glucose 232H, Hemoglobin A1c 9.7, Lactic Acid Level 1.9, Blood Urea Nitrogen 42H, Creatinine 6.21H, Sodium Level 129L, Potassium Level 3.5, Chloride Level 93L, Carbon Dioxide Level 23, Calcium Level 7.1L, Phosphorus Level 7.1H, Magnesium Level 1.6L, Troponin I < 0.02, Lipase 64L CBC/BMP Laboratory Tests 12/21/18 23:10 Calcium Level 7.1 L Home Medications Scheduled Atorvastatin Calcium (Atorvastatin Calcium) 20 Mg Tab, 20 MG PO DAILY Baclofen (Baclofen) 20 Mg Tab, 40 MG PO TID Buspirone HCl (Buspirone HCl) 15 Mg Tab, 7.5 MG PO BID Celecoxib (Celebrex) 200 Mg Cap, 200 MG PO DAILY Divalproex Sodium (Divalproex Sodium) 125 Mg Tab, 125 MG PO BID Duloxetine Hcl (Duloxetine HCl) 20 Mg Cap, 20 MG PO DAILY Insulin Glargine,Hum.rec.anlog (Basaglar Kwikpen U-100) 100 Unit/Ml Inj, 20 UNIT SC QAM Insulin Human Lispro (Novolog) 100 U/Ml Inj, 8 UNITS SC QHS Lisinopril/Hydrochlorothiazide (Lisinopril-Hctz 20-25 mg Tab) 1 Tab Tab, 1 TAB PO DAILY Metformin HCl (Metformin HCl) 500 Mg Tab, 1,000 MG PO BID Metformin HCl (Metformin HCl) 500 Mg Tab, 500 MG PO at noon Metoprolol Tartrate (Metoprolol Tartrate) 25 Mg Tab, 25 MG PO BID Omeprazole (Omeprazole) 20 Mg Cap, 20 MG PO DAILY Oxycodone HCl/Acetaminophen (Oxycodone-Acetaminophen 10-325) 1 Tab Tab, 10-325 MG PO BID Scheduled PRN Cyclobenzaprine HCl (Cyclobenzaprine HCl) 10 Mg Tab, 10 MG PO BID PRN for MUSCLE SPASMS Allergies Coded Allergies: No Known Allergies (Unverified , 12/09/16) A-FIB/CHADSVASC A-FIB History Current/History of A-Fib/PAF?: No MEGAN ARREOLA MD Dec 22, 2018 01:01
[2018-12-22] MEDS: HumaLOG INSULIN (NovoLOG) PER UNIT SC SCH ×5 (01:25→20:24)
[2018-12-22] MEDS ORDERED: OMEP-218 PO (01:29)
[2018-12-22] MEDS ORDERED: OXYC1TAB15 PO (01:29)
[2018-12-22] MEDS ORDERED: TRAD5TAB PO (01:29)
[2018-12-22] MEDS ORDERED: TRUL0.5I SC (01:31)
[2018-12-22 02:54] LABS: HEMATOCRIT 37.1 % (42.0-52.0); HEMOGLOBIN 12.5 g/dl (13.5-17.5); MEAN CORPUSCULAR HEMOGLOBIN 29.1 pg (27.0-33.0); MEAN CORPUSCULAR HGB CONC 33.7 g/dl (32.0-36.5); MEAN CORPUSCULAR VOLUME 86.5 fl (80.0-96.0); PLATELET COUNT, AUTOMATED 255 10^3/uL (150-450); RED BLOOD COUNT 4.29 10^6/uL (4.30-6.10)
[2018-12-22] MEDS: PERCOCET 5MG/325MG TAB PO PRN ×3 (03:22→17:28)
[2018-12-22 03:23] LABS: BLOOD UREA NITROGEN 48 MG/DL (7-18); CALCIUM LEVEL 7.1 MG/DL (8.5-10.1); CARBON DIOXIDE LEVEL 21 MEQ/L (21-32); CHLORIDE LEVEL 93 MEQ/L (98-107); CREATININE FOR GFR 6.06 MG/DL (0.70-1.30); GLUCOSE, FASTING 280 MG/DL (70-100); POTASSIUM SERUM 3.2 MEQ/L (3.5-5.1); SODIUM LEVEL 129 MEQ/L (136-145); TROPONIN I < 0.02 NG/ML (< 0.10)
[2018-12-22] MEDS ORDERED: CETI10TA4 PO (04:41)
[2018-12-22] MEDS ORDERED: AZEL1SPR3 NARES (04:42)
[2018-12-22 04:45] VITALS: BP 90/58
[2018-12-22] MEDS ORDERED: NS 1,000 ML IV ONE (05:00)
[2018-12-22] MEDS: PANTOPRAZOLE 40MG INJ (PROTONIX) (C9113) IV SCH ×2 (05:19→17:27)
[2018-12-22] MEDS: HEPARIN SOD (PORCINE) 5000 UNITS/ML VIAL SC SCH ×2 (05:20→17:27)
[2018-12-22 06:23] LABS: CREATININE FOR GFR 5.66 MG/DL (0.70-1.30); GLOMERULAR FILTRATION RATE 11.9 (>60); POTASSIUM SERUM 3.2 MEQ/L (3.5-5.1)
[2018-12-22 06:24] LABS: CALCIUM LEVEL 6.5 MG/DL (8.5-10.1)
--- NOTE | 2018-12-22 07:24 | REP ---
Clinical: Cough. Diabetic ketoacidosis . Comparison: None . Findings: The mediastinum and cardiac silhouette are stable and within normal limits for portable technique. The lung larsen are clear without acute consolidation, effusion, or pneumothorax. Skeletal structures are intact. Impression: No acute cardiopulmonary process appreciated. Electronically Signed by Rick Zuniga MD 12/22/2018 07:16 A
[2018-12-22 08:00] VITALS: BP 133/72
[2018-12-22] MEDS ORDERED: KCL 10MEQ/100ML SWI (KRUN) 10 MEQ in APPROPRIATE DILUENT 1 EA IV ONE (08:00)
[2018-12-22] MEDS: DULoxetine 20 MG CAP (CYMBALTA) PO SCH (08:32)
[2018-12-22] MEDS: METOPROLOL TART 25 MG TABLET PO SCH ×2 (08:32→20:34)
[2018-12-22] MEDS: DIVALPROEX 125 MG TAB PO SCH ×2 (08:33→20:33)
[2018-12-22] MEDS ORDERED: NS 1,000 ML IV SCH (10:00)
[2018-12-22] MEDS: CIPROFLOXACIN 400 MG in APPROPRIATE DILUENT 1 EA IV SCH (10:49)
[2018-12-22 12:00] VITALS: BP 120/63
[2018-12-22] MEDS ORDERED: POTASSIUM CHLORIDE 10 MEQ SR TABLET PO ONE (12:00)
[2018-12-22] MEDS: KCL 20MEQ IN 0.45NS 1000ML 1,000 ML IV SCH ×2 (13:52→20:34)
[2018-12-22 14:26] LABS: HEMATOCRIT 34.6 % (42.0-52.0); HEMOGLOBIN 11.7 g/dl (13.5-17.5); MEAN CORPUSCULAR HEMOGLOBIN 29.3 pg (27.0-33.0); MEAN CORPUSCULAR HGB CONC 33.8 g/dl (32.0-36.5); MEAN CORPUSCULAR VOLUME 86.5 fl (80.0-96.0); PLATELET COUNT, AUTOMATED 229 10^3/uL (150-450)
[2018-12-22 14:29] LABS: IONIZED CALCIUM 3.6 MG/DL (4.5-5.3)
[2018-12-22 14:58] LABS: ALBUMIN 2.8 GM/DL (3.2-5.2); CALCIUM LEVEL 6.5 MG/DL (8.5-10.1); CREATININE FOR GFR 5.96 MG/DL (0.70-1.30); GLOMERULAR FILTRATION RATE 11.2 (>60); PHOSPHORUS LEVEL 4.6 MG/DL (2.5-4.9); POTASSIUM SERUM 3.6 MEQ/L (3.5-5.1)
[2018-12-22 16:00] VITALS: BP 123/63
[2018-12-22] MEDS: CALCIUM GLUCONATE 1,000 MG in D5W MINI-BAG PLUS 100 ML IV SCH ×2 (16:22→17:27)
[2018-12-22 20:00] VITALS: BP 116/64
--- NOTE | 2018-12-22 21:35 | CR ---
DATE OF CONSULTATION: 12/22/2018 REQUESTING PHYSICIAN: Dr. Simona Doherty. CONSULTING PHYSICIAN: Dr. Daly. REASON FOR CONSULTATION: Management of her acute renal failure. CHIEF COMPLAINT: Patient presented to the hospital overnight with nausea, vomiting, diarrhea and fever. HISTORY OF PRESENT ILLNESS: Mr. Cas De Santiago is a 38-year-old male with past medical history of diabetes mellitus type 2, history of hypertension, who apparently has a normal renal function as baseline. Baseline creatinine is close to 1 as of November,. No other records are available. Patient reports that four days ago, he ate salad outside and within 24 hours after eating outside he started having severe nausea, vomiting and diarrhea. He was having above 5-6 episodes of diarrhea and about 4-5 episodes of vomiting every day. He kept on feeling weaker and weaker. His urine output decreased and his urine was very dark; however, despite all of his illness, he kept on taking his home medications, which included lisinopril, hydrochlorothiazide and metformin. In the emergency room, patient was found to be in acute renal failure with a creatinine of 6.2 and hyponatremia with a sodium of 129. Patient was admitted under the hospitalist service overnight. He was started on intravenous (IV) fluid hydration. Gastrointestinal (GI) panel came back positive for Salmonella. Renal consult was called for further evaluation and management of acute renal failure. I saw and evaluated the patient today morning at the bedside. Patient has a Davis catheter. He started making very dark urine today morning. He continues to be on IV fluid hydration. He reports that he is feeling slightly better today as compared with yesterday. PAST MEDICAL HISTORY: 1. Diabetes mellitus type 2. 2. Hypertension. 3. Chronic pain. 4. Mood disorder. PAST SURGICAL HISTORY: 1. History of carpal tunnel surgery times two. 2. History of deviated nasal septum repair. 3. Neck surgery in the past. ALLERGIES: No known drug allergies. FAMILY HISTORY: No significant family history of end-stage renal disease requiring hemodialysis. SOCIAL HISTORY: Patient is , lives with his . He is disabled. He denies any smoking, illicit drug abuse or alcohol abuse. REVIEW OF SYSTEMS: CONSTITUTIONAL: He reports feeling very weak and tired. EYES: He denies any blurry vision, double vision. EARS, NOSE AND THROAT (ENT): He denies any dysphagia odynophagia or ear discharge. CARDIOVASCULAR: He denies any chest pain or palpitations. RESPIRATORY: He denies any shortness of breath or cough. GASTROINTESTINAL (GI): He reports nausea, vomiting and diarrhea. GENITOURINARY: He reports dark urine and decreased urine output. MUSCULOSKELETAL: He reports muscle weakness and muscle aches and pains. CENTRAL NERVOUS SYSTEM (SURVEILLANCE SYSTEM MONITOR): He denies any strokes or seizures. SKIN: He denies any rashes or ulcers. ENDOCRINE: He reports history of diabetes mellitus type 2. HEMATOLOGY/ONCOLOGY: He denies any easy bleeding or bruising. All other review of systems is negative. PHYSICAL EXAMINATION: GENERAL: Patient is awake, alert, oriented times three, morbidly obese, laying in bed in no apparent distress. VITAL SIGNS: Temperature is 95.9 degrees Fahrenheit, blood pressure 120/63, pulse is 89, respiratory rate of 18, saturating 98% on room air. INTAKE AND OUTPUT: Urine output recorded so far since overnight is 800 mL. HEAD AND NECK EXAM: Extraocular muscles intact. Pupils equally round and reactive to light. Mucous membranes are moist. Neck is supple. There is no jugular venous distention (JVD). CARDIOVASCULAR: S1, S2. Regular rate. No murmur, rub or gallop. No edema of the bilateral lower extremities. RESPIRATORY: Chest is clear to auscultation bilaterally. Bilateral equal air entry. No rales or rhonchi. ABDOMEN: Soft. Positive bowel sounds. Nontender. Hyperactive bowel sounds. GENITOURINARY: Patient has an indwelling Davis catheter. Urine in the bag is dark in color. MUSCULOSKELETAL: No clubbing or cyanosis. Pulses are 2+. CENTRAL NERVOUS SYSTEM (SURVEILLANCE SYSTEM MONITOR): No focal deficit. Power is power in all extremities. SKIN: No rashes or ulcers. LABORATORY REVIEW: Complete blood count (CBC) showed a WBC of 5, hemoglobin 11.7, platelets of 229. Urinalysis showed it was turbid with 2+ blood, 2+ protein, large calcium oxalate crystals. Basic metabolic panel (BMP) on arrival showed sodium 129, potassium 3.5, chloride 103, bicarbonate 23, BUN 42, creatinine is 6.2, lactic acid 1.9, calcium is 7.1, phosphorous 7.1, magnesium is 1.6, ionized calcium came back at 3.6. IMAGING STUDIES: A renal ultrasound was done which showed no acute pathology. CURRENT INPATIENT MEDICATIONS: current inpatient medications. Patient 's medications included: - ciprofloxacin 400 mg IV every 24 hours - He was given one dose of potassium chloride (KCl) 10 mEq IV - He was given Maxifed 1 gram IV x1 dose. - Patient was given IV normal saline boluses; he is getting a normal saline at 150 mL an hour. - He is on Depakote 125 mg by mouth twice a day - Cymbalta 20 mg by mouth daily - heparin subcutaneous - insulin sliding scale - metoprolol 25 mg by mouth twice a day - Protonix 40 mg IV every 12 hours - potassium chloride 40 mEq by mouth; one dose was given by myself ASSESSMENT: A 38-year-old male with diabetes mellitus type 2, hypertension, admitted this time with acute renal failure and Salmonella gastroenteritis. PLAN: 1. Acute renal failure. It is secondary to combination of dehydration, volume depletion with Salmonella and use of metformin and lisinopril and thiazide diuretics at home. Patient was given aggressive IV fluid hydration overnight. He is nonoliguric at this point. Electrolytes are acceptable. Continue to monitor for improvement of the renal function. 2. Hypokalemia. It is secondary to diarrhea and nausea, vomiting. Patient was given potassium chloride 40 mEq by mouth and I have ordered a potassium in the IV fluids as well. 3. Acute Salmonella gastroenteritis. Patient is currently on IV ciprofloxacin. Symptomatic treatment with IV fluid hydration. I have changed the IV fluids to KCl 20 mEq and half-normal saline at 150 mL an hour. 4. Hyponatremia secondary to hypovolemia and use of hypotonic fluids at home. Sodium level is improving with IV fluid hydration. 5. Hypocalcemia. I have ordered calcium gluconate 1 gram IV times two doses. 6. Diabetes mellitus type 2. Continue insulin sliding scale. Avoid use of metformin in acute renal failure. 7. History of hypertension. Blood pressure is optimal. Actually, he came in with volume depletion. All the antihypertensives on hold except of metoprolol 25 mg by mouth twice a day. He gives questionable history of heart racing. Not sure if patient has history of atrial fibrillation in the past. 8. Normal anion gap metabolic acidosis. It is secondary to diarrhea and acute renal failure. Bicarbonate level is 19. No need of IV bicarbonate fluids. Bicarbonate is expected to improve with improvement in the renal function. Thank you for involving me in the care of this patient. I shall be happy to follow the patient along with you tomorrow morning.
[2018-12-23] VITALS (7 sets, daily range): BP systolic 104–135; BP diastolic 50–69
[2018-12-23] MEDS: PERCOCET 5MG/325MG TAB PO PRN ×4 (02:01→22:41)
[2018-12-23] MEDS: HEPARIN SOD (PORCINE) 5000 UNITS/ML VIAL SC SCH ×2 (05:49→17:45)
[2018-12-23] MEDS: PANTOPRAZOLE 40MG INJ (PROTONIX) (C9113) IV SCH (05:49)
[2018-12-23 06:01] LABS: HEMOGLOBIN 11.1 g/dl (13.5-17.5); MEAN CORPUSCULAR HEMOGLOBIN 29.3 pg (27.0-33.0); MEAN CORPUSCULAR HGB CONC 33.6 g/dl (32.0-36.5); MEAN CORPUSCULAR VOLUME 87.1 fl (80.0-96.0); PLATELET COUNT, AUTOMATED 216 10^3/uL (150-450); RED BLOOD COUNT 3.79 10^6/uL (4.30-6.10); WHITE BLOOD COUNT 5.7 10^3/uL (4.0-10.0)
[2018-12-23 06:26] LABS: CALCIUM LEVEL 7.2 MG/DL (8.5-10.1); CREATININE FOR GFR 7.02 MG/DL (0.70-1.30); GLOMERULAR FILTRATION RATE 9.3 (>60); POTASSIUM SERUM 3.6 MEQ/L (3.5-5.1)
--- NOTE | 2018-12-23 07:38 | ECGEPIP ---
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
[2018-12-23] MEDS: DIVALPROEX 125 MG TAB PO SCH ×2 (08:47→20:30)
[2018-12-23] MEDS: DULoxetine 20 MG CAP (CYMBALTA) PO SCH (08:47)
[2018-12-23] MEDS: METOPROLOL TART 25 MG TABLET PO SCH ×2 (08:47→20:29)
[2018-12-23] MEDS: HumaLOG INSULIN (NovoLOG) PER UNIT SC SCH ×4 (08:48→20:39)
[2018-12-23] MEDS ORDERED: LR 1,000 ML IV SCH (10:00)
--- NOTE | 2018-12-23 10:54 | IPNPDOC ---
Text Note Date of Service The patient was seen on 12/23/18. NOTE Patient was seen and examined this morning. The patient states that he continues to have watery diarrhea. Denies any abdominal pain PHYSICAL EXAMINATION: General: The patient is awake, alert, oriented x3, sitting up in the bed in no apparent distress. Head and Neck Exam: Extraocular muscles intact. Pupils equally round and reactive to light. Mucous membranes are moist. Neck is supple. There is no jugular venous distention (JVD). Cardiovascular: S1 and S2, regular rate. Trace edema of the bilateral lower extremities. Respiratory: Mild inspiratory crackles at the right base, mildly decreased breath sounds at the left side. Abdomen: Soft. Positive bowel sounds. Nontender. No organomegaly. Genitourinary: Indwelling Davis catheter was noted. Musculoskeletal: Good range of motions Central Nervous System (DINKEY ENGINEER): No focal deficit. Power is 5/5 in all extrem ities. Laboratory Tests 12/22/18 14:07 Red Blood Count 4.00 L, Mean Corpuscular Volume 86.5, Mean Corpuscular Hemoglobin 29.3, Mean Corpuscular Hemoglobin Concent 33.8, Red Cell Distribution Width 13.2, Anion Gap 13 12/23/18 05:41 Red Blood Count 3.79 L, Mean Corpuscular Volume 87.1, Mean Corpuscular Hemoglobin 29.3, Mean Corpuscular Hemoglobin Concent 33.6, Red Cell Distribution Width 13.2, Calcium Level 7.2 L Vital Sign - Last 24 Hours 12/22/18 12/22/18 12/22/18 12/22/18 12:00 16:00 17:28 20:00 Temp 95.9 96.9 97.1 Pulse 89 98 104 Resp 18 20 20 20 B/P (MAP) 120/63 (82) 123/63 (83) 116/64 (81) Pulse Ox 98 97 96 12/22/18 12/23/18 12/23/18 12/23/18 20:34 00:00 02:01 04:00 Temp 98.3 97.2 Pulse 104 99 94 Resp 18 18 18 B/P (MAP) 116/64 106/58 (74) 104/50 (68) Pulse Ox 95 98 12/23/18 12/23/18 12/23/18 07:47 08:47 09:17 Temp 96.6 96.6 96.6 Pulse 91 91 91 Resp 18 18 18 B/P (MAP) 128/57 (80) 128/57 128/57 Pulse Ox 100 100 100 Assessment and plan 1. Acute renal failure: Likely etiology is dehydration and severe diarrhea leading to prerenal etiology. Patient already has a Davis catheter in place and the patient has been making good amount of urine. Creatinine has trended down to 6.6. The patient continues to have diarrhea. We will continue the IV fluids at 1 50 mL per hour. Nephrology is also following along. His diuretic especially his thiazide is on hold. We will avoid any nephrotoxic drugs. Input output monitoring. Avoid any contrast. No indication of acute dialysis at this time. 2. Fever: Resolving. Likely secondary to salmonella infection. We will continue to monitor and continue IV ciprofloxacin. Patient continues to be on IV fluids 3. Abdominal pain: Likely secondary to somnolent infection. We will escalate the diet as best as follows. 4. Hypovolemic hyponatremia: Also likely the etiology for his hypochloremia. We'll continue to provide IV fluids and recheck a basic metabolic panel 5. Diabetes mellitus: Hold oral agents and continue sliding scale insulin. We'll optimize insulin as per 24-hour insulin requirement. 6. Hypomagnesemia and hyperphosphatemia: Likely related to his acute renal failure. Continue replacement. DVT PROPHYLAXIS:Heparin twice a day DISPOSITION: Likely would require inpatient stay for the next 2-3 days. His renal function improves. Ultimately will go home. VS,Fishbone, I+O VS, Fishbone, I+O Laboratory Tests 12/22/18 14:07 Red Blood Count 4.00 L, Mean Corpuscular Volume 86.5, Mean Corpuscular Hemoglobin 29.3, Mean Corpuscular Hemoglobin Concent 33.8, Red Cell Distribution Width 13.2, Anion Gap 13 12/23/18 05:41 Red Blood Count 3.79 L, Mean Corpuscular Volume 87.1, Mean Corpuscular Hemoglobin 29.3, Mean Corpuscular Hemoglobin Concent 33.6, Red Cell Distribution Width 13.2, Calcium Level 7.2 L Vital Signs Date Time Temp Pulse Resp B/P (MAP) Pulse Ox O2 Delivery O2 Flow Rate FiO2 12/23/18 09:17 96.6 91 18 128/57 100 I&O- Last 24 Hours up to 6 AM 12/23/18 06:00 Intake Total 3310 ml Output Total 675 ml Balance 2635 ml TERI KENT MD Dec 23, 2018 10:54
[2018-12-23] MEDS: CIPROFLOXACIN 400 MG in APPROPRIATE DILUENT 1 EA IV SCH (11:15)
[2018-12-23] MEDS ORDERED: POTASSIUM CHLORIDE 10 MEQ SR TABLET PO ONE (11:45)
[2018-12-23] MEDS: cefTRIAXone SOD 2 GM in D5W MINI-BAG PLUS 50 ML IV SCH (12:56)
[2018-12-23] MEDS: SODIUM BICARBONATE 75 MEQ in NS 0.45% 1,000 ML IV SCH ×2 (13:35→22:40)
[2018-12-24 04:45] VITALS: BP 101/56
[2018-12-24] MEDS: HEPARIN SOD (PORCINE) 5000 UNITS/ML VIAL SC SCH ×2 (05:33→17:38)
[2018-12-24] MEDS: PERCOCET 5MG/325MG TAB PO PRN ×3 (05:34→22:56)
[2018-12-24 06:15] LABS: HEMOGLOBIN 10.8 g/dl (13.5-17.5); MEAN CORPUSCULAR HEMOGLOBIN 28.1 pg (27.0-33.0); MEAN CORPUSCULAR HGB CONC 33.8 g/dl (32.0-36.5); MEAN CORPUSCULAR VOLUME 83.3 fl (80.0-96.0); PLATELET COUNT, AUTOMATED 237 10^3/uL (150-450); RED BLOOD COUNT 3.84 10^6/uL (4.30-6.10); WHITE BLOOD COUNT 4.8 10^3/uL (4.0-10.0)
[2018-12-24 06:42] LABS: CALCIUM LEVEL 6.9 MG/DL (8.5-10.1); CREATININE FOR GFR 5.6 MG/DL (0.70-1.30); GLOMERULAR FILTRATION RATE 12.1 (>60); POTASSIUM SERUM 3.2 MEQ/L (3.5-5.1)
--- NOTE | 2018-12-24 06:45 | IPN ---
DATE OF SERVICE: 12/23/2018 SUBJECTIVE: The patient was seen and examined at the bedside today morning. He is afebrile. He does report that he continues to have diarrhea even though it is not recorded. He reports that he had multiple bowel movements since overnight as well. He continues to be oliguric. There is no significant improvement in the renal function. Creatinine has bumped up to 7. His IV fluids finished overnight, but he is on a liquid diet and he reports that he is drinking a lot of liquids. There is no significant improvement in the metabolic acidosis. Serum bicarb has dropped to 18 now. He otherwise denies any nausea or vomiting, but he continues to have loose stools. OBJECTIVE Vital Signs: Temperature is 96.7 degrees Fahrenheit, blood pressure 110/58, pulse is 84, respiratory rate of 18, saturating 100% on room air. Intake and Output: Urine output recorded yesterday as 800 mL, urine output so far today since overnight is 550 mL. Weight in the bed scale is 127.7 kg. PHYSICAL EXAMINATION: General: The patient is awake, alert, oriented x3, laying in bed, obese, in no apparent distress. Head and Neck Exam: Extraocular muscles intact. Pupils equally round and reactive to light. Mucous membranes are moist. Neck is supple. There is no jugular venous distention (JVD). Cardiovascular: S1 and S2, regular rate. No edema of the bilateral lower extremities. Respiratory: Chest is clear to auscultation bilaterally. Bilateral equal air entry. No rales or rhonchi. Abdomen: Soft. Positive bowel sounds. Nontender. No organomegaly. Genitourinary: The patient still has an indwelling Davis catheter. The patient has dirty brown colored urine in the bag. Musculoskeletal: No clubbing or cyanosis. Pulses are 2+. Central Nervous System (MANAGER PROGRAMMING): No focal deficit. Power is 5/5 in all extremities. LAB REVIEW: CBC showed a WBC of 5.7, hemoglobin 11.1, platelets of 216. BMP showed sodium 128, potassium 3.6, chloride 99, bicarb 18, BUN 50, creatinine is 7, glucose 206, calcium is 7.2. CURRENT INPATIENT MEDICATIONS: The patient's medications were all reviewed by me. He was getting IV ciprofloxacin. I have stopped that and I have started the patient on IV Rocephin 2 grams IV every 24 hours. The patient was started on ringers lactate 50 mL an hour today morning. I have stopped the ringers lactate and started the patient on half normal saline plus 75 mEq of bicarb at 125 mL an hour. He continues to be on Depakote. The patient was also given a dose of potassium chloride 20 mEq by mouth x1 dose. His IV Protonix has been changed to 40 mg IV once a day instead of twice a day. ASSESSMENT/PLAN: 1. Acute renal failure. The patient is still oliguric. The most likely etiology is dehydration secondary to diarrhea and use of PEPE inhibitors, thiazide and metformin at home. The patient had a lot of calcium oxalate crystals on the urinalysis and he is also on ciprofloxacin which can cause crystalluria in the setting of renal failure. I have stopped the ciprofloxacin and started the patient on ceftriaxone instead. In order for adequate hydration and ongoing diarrhea, I have started the patient on IV fluids again. 2. Hypokalemia. The patient was given another dose of potassium chloride 20 mEq by mouth x1 dose. 3. Hyponatremia. It is secondary to diarrhea and repletion of fluids with slightly hypotonic fluids. I have changed the IV fluids to isotonic fluids now. 4. Acute Salmonella gastroenteritis. IV ciprofloxacin has been stopped because of acute renal failure and I have started the patient on ceftriaxone 2 grams IV daily. 5. Normal anion gap metabolic acidosis. Bicarb level is dropping. The patient is still having diarrhea and he is in renal failure. IV bicarb containing fluids have been started today. 6. Diabetes mellitus type 2. Continue insulin sliding scale, avoid use of metformin.
[2018-12-24 07:55] VITALS: BP 112/59
[2018-12-24] MEDS: METOPROLOL TART 25 MG TABLET PO SCH ×2 (08:27→21:23)
[2018-12-24] MEDS: DULoxetine 20 MG CAP (CYMBALTA) PO SCH (08:27)
[2018-12-24] MEDS: DIVALPROEX 125 MG TAB PO SCH ×2 (08:27→21:23)
[2018-12-24] MEDS: PANTOPRAZOLE 40MG INJ (PROTONIX) (C9113) IV SCH (08:27)
[2018-12-24] MEDS: SODIUM BICARBONATE 75 MEQ in NS 0.45% 1,000 ML IV SCH ×3 (08:28→23:24)
[2018-12-24] MEDS: HumaLOG INSULIN (NovoLOG) PER UNIT SC SCH ×4 (08:28→21:24)
--- NOTE | 2018-12-24 08:57 | IPNPDOC ---
Text Note Date of Service The patient was seen on 12/24/18. NOTE Patient was seen and examined this morning. Her diarrhea is resolving. Denies any abdominal pain PHYSICAL EXAMINATION: General: The patient is awake, alert, oriented x3, sitting up in the bed in no apparent distress. Head and Neck Exam: Extraocular muscles intact. Pupils equally round and reactive to light. Mucous membranes are moist. Neck is supple. There is no jugular venous distention (JVD). Cardiovascular: S1 and S2, regular rate. Trace edema of the bilateral lower extremities. Respiratory: Mild inspiratory crackles at the right base, mildly decreased breath sounds at the left side. Abdomen: Soft. Positive bowel sounds. Nontender. No organomegaly. Genitourinary: Indwelling Davis catheter was noted. Musculoskeletal: Good range of motions Central Nervous System (SENIOR CONTROLS ANALYST): No focal deficit. Power is 5/5 in all extremities. Laboratory Tests 12/24/18 05:48 Red Blood Count 3.84 L, Mean Corpuscular Volume 83.3, Mean Corpuscular Hemoglobin 28.1, Mean Corpuscular Hemoglobin Concent 33.8, Red Cell Distribution Width 13.2, Calcium Level 6.9 L Assessment and plan 1. Acute renal failure: Creatinine improving. Likely etiology is dehydration and severe diarrhea leading to prerenal etiology. Patient already has a Davis catheter in place and the patient has been making good amount of urine. Creatinine has trended down to 5.6. We will continue the IV fluids. Nephrology is also following along. His diuretic especially his thiazide is on hold. We will avoid any nephrotoxic drugs. Input output monitoring. Avoid any contrast. No indication of acute dialysis at this time. 2. Fever: Resolving. Likely secondary to salmonella infection. We will continue to monitor and continue IV ciprofloxacin. Patient continues to be on IV fluids 3. Abdominal pain: Likely secondary to somnolent infection. We will escalate the diet as best as follows. 4. Hypovolemic hyponatremia: Also likely the etiology for his hypochloremia. We'll continue to provide IV fluids and recheck a basic metabolic panel 5. Diabetes mellitus: Hold oral agents and continue sliding scale insulin. We'll optimize insulin as per 24-hour insulin requirement. 6. Hypomagnesemia and hyperphosphatemia: Likely related to his acute renal failu re. Continue replacement. DVT PROPHYLAXIS:Heparin twice a day DISPOSITION: Likely would require inpatient stay for the next 2-3 days. His renal function improves. Ultimately will go home. VS,Fishbone, I+O VS, Fishbone, I+O Laboratory Tests 12/24/18 05:48 Red Blood Count 3.84 L, Mean Corpuscular Volume 83.3, Mean Corpuscular Hemoglobin 28.1, Mean Corpuscular Hemoglobin Concent 33.8, Red Cell Distribution Width 13.2, Calcium Level 6.9 L Vital Signs Date Time Temp Pulse Resp B/P (MAP) Pulse Ox O2 Delivery O2 Flow Rate FiO2 12/24/18 08:27 92 112/59 12/24/18 07:55 97.0 22 99 I&O- Last 24 Hours up to 6 AM 12/24/18 06:00 Intake Total 3925 ml Output Total 1200 ml Balance 2725 ml TERI KENT MD Dec 24, 2018 08:57
[2018-12-24] MEDS ORDERED: POTASSIUM CHLORIDE 10 MEQ SR TABLET PO ONE (09:45)
[2018-12-24] MEDS: cefTRIAXone SOD 2 GM in D5W MINI-BAG PLUS 50 ML IV SCH (11:46)
[2018-12-24 11:56] VITALS: BP 106/53
[2018-12-24 16:37] VITALS: BP 124/57
[2018-12-24 20:00] VITALS: BP 141/91
[2018-12-24 21:37] LABS: APPEARANCE, URINE CLEAR (CLEAR); BACTERIA, URINE AUTO NEGATIVE (NEGATIVE); BILIRUBIN, URINE AUTO NEGATIVE (NEGATIVE); BLOOD, URINE BLOOD 3+ (NEGATIVE); COLOR, URINE YELLOW (YELLOW); GLUCOSE, URINE (UA) AUTO 2+ mg/dL (NEGATIVE); KETONE, URINE AUTO NEGATIVE (NEGATIVE); LEUKOCYTE ESTERASE, URINE AUTO NEGATIVE (NEGATIVE); NITRITE, URINE AUTO NEGATIVE (NEGATIVE); PROTEIN, URINE AUTO NEGATIVE (NEGATIVE); RBC, URINE AUTO 149 /HPF (0-3); SPECIFIC GRAVITY URINE AUTO 1.008 (1.002-1.035); SQUAMOUS EPITHELIAL CELL UR AU 0 /HPF (0-6); UROBILINOGEN, URINE AUTO 0.2 mg/dL (0.0-2.0); WBC, URINE AUTO 2 /HPF (0-3)
[2018-12-24 23:59] VITALS: BP_SYST 117; BP_SYST 120; BP_DIAS 56; BP_DIAS 59
[2018-12-25 05:10] LABS: HEMATOCRIT 29.3 % (42.0-52.0); HEMOGLOBIN 10.1 g/dl (13.5-17.5); MEAN CORPUSCULAR HEMOGLOBIN 29.2 pg (27.0-33.0); MEAN CORPUSCULAR HGB CONC 34.5 g/dl (32.0-36.5); MEAN CORPUSCULAR VOLUME 84.7 fl (80.0-96.0); PLATELET COUNT, AUTOMATED 245 10^3/uL (150-450); RED BLOOD COUNT 3.46 10^6/uL (4.30-6.10); WHITE BLOOD COUNT 4.8 10^3/uL (4.0-10.0)
[2018-12-25 05:59] LABS: CALCIUM LEVEL 7.1 MG/DL (8.5-10.1); CREATININE FOR GFR 2.19 MG/DL (0.70-1.30); GLOMERULAR FILTRATION RATE 35.7 (>60); POTASSIUM SERUM 3.1 MEQ/L (3.5-5.1)
[2018-12-25] MEDS: HEPARIN SOD (PORCINE) 5000 UNITS/ML VIAL SC SCH ×2 (06:32→17:32)
[2018-12-25] MEDS ORDERED: NS 1,000 ML IV SCH (07:45)
[2018-12-25] MEDS ORDERED: POTASSIUM CHLORIDE 10 MEQ SR TABLET PO ONE (07:45)
[2018-12-25 08:00] VITALS: BP 129/72
[2018-12-25] MEDS: DIVALPROEX 125 MG TAB PO SCH ×2 (08:09→20:26)
[2018-12-25] MEDS: DULoxetine 20 MG CAP (CYMBALTA) PO SCH (08:09)
[2018-12-25] MEDS: METOPROLOL TART 25 MG TABLET PO SCH ×2 (08:10→20:29)
[2018-12-25] MEDS: PANTOPRAZOLE 40MG INJ (PROTONIX) (C9113) IV SCH (08:11)
[2018-12-25] MEDS: PERCOCET 5MG/325MG TAB PO PRN ×3 (08:11→21:58)
[2018-12-25] MEDS: HumaLOG INSULIN (NovoLOG) PER UNIT SC SCH ×4 (08:13→20:30)
--- NOTE | 2018-12-25 09:29 | IPN ---
DATE OF SERVICE: 12/24/2018 SUBJECTIVE: The patient was seen and examined at the bedside today morning. The patient is afebrile, hemodynamically stable. He reports that he is still having loose bowel movements which are not being recorded. He reported that he had three bowel movements, loose bowel movements, so far since he woke up today morning. There is slight improvement in his renal function. He continues to be on intravenous (IV) fluid hydration. His urine output is slowly improving. Creatinine has come down to 5.6 today. He is tolerating IV Rocephin. OBJECTIVE: Vital signs: Temperature is 96.6 degrees Fahrenheit, blood pressure 141/91, pulse is 97, respiratory rate of 20, saturating 99% on room air. Intake and output: Urine output recorded is 1.2 liters yesterday, 600 mL so far today since overnight. Weight in the bed scale is 128.6 kg. PHYSICAL EXAMINATION: General: The patient is awake, alert, oriented times three, lying in bed, in no apparent distress. Head and neck examination: Extraocular muscles intact. Pupils equally round and reactive to light. Mucous membranes are moist. Neck is supple. There is no jugular venous distention (JVD). Cardiovascular: S1, S2, regular rate. No edema of the bilateral lower extremities. Respiratory: Chest is clear to auscultation bilaterally. Bilateral equal air entry. No rales or rhonchi. Abdomen: Soft, obese, positive bowel sounds. Nontender. No organomegaly. Genitourinary: The patient's Davis catheter has been removed. Musculoskeletal: No clubbing or cyanosis. Pulses are 2+. Central nervous system (MOTH EXTERMINATOR): No focal deficit. Power is 5/5 in all extremities. LABORATORY REVIEW: Complete blood count (CBC) showed a WBC 4.8, hemoglobin 10.8, platelets are 237. Repeat urinalysis done today showed no proteinuria, 2+ glucose, 3+ blood. Basic metabolic profile (BMP) done today morning showed sodium 131, potassium 3.2, chloride 100, bicarbonate 21, BUN 55, creatinine is 5.6. CURRENT INPATIENT MEDICATIONS: The patient continues to be on IV Rocephin. He is on IV sodium bicarbonate drip at 125 mL an hour. He was given one dose of potassium chloride 40 mEq today morning. ASSESSMENT AND PLAN: 1. Acute renal failure. The patient is nonoliguric at this time, which is a good sign. Continue IV fluid hydration. The patient's renal function is slowly improving. Creatinine is trending down. The patient is expected to have full renal recovery without the need of dialysis. 2. Hypokalemia. The patient was given a dose of potassium chloride 40 mEq by mouth times one dose. 3. Hyponatremia. It was secondary to hypotonic IV fluids in the setting of diarrhea. Sodium level is improving. Continue IV sodium bicarbonate drip. 4. Normal anion gap metabolic acidosis. It was secondary to diarrhea and acute renal failure. Bicarbonate level is improving. Continue current IV bicarbonate fluid rate at 125 mL an hour. 5. Acute Salmonella gastroenteritis. The patient's antibiotic was changed to IV ceftriaxone. Continue current antibiotic. Diarrhea is slowly improving. 6. Diabetes mellitus type 2. Avoid use of metformin in acute renal failure. Continue insulin sliding scale. The rest of the management is as per primary team.
--- NOTE | 2018-12-25 10:35 | IPNPDOC ---
Text Note Date of Service The patient was seen on 12/25/18. NOTE Patient was seen and examined this morning. His diarrhea is resolving. Only one episode overnight. Denies any abdominal pain PHYSICAL EXAMINATION: General: The patient is awake, alert, oriented x3, sitting up in the bed in no apparent distress. Head and Neck Exam: Extraocular muscles intact. Pupils equally round and reactive to light. Mucous membranes are moist. Neck is supple. There is no jugular venous distention (JVD). Cardiovascular: S1 and S2, regular rate. Trace edema of the bilateral lower extremities. Respiratory: Mild inspiratory crackles at the right base, mildly decreased breath sounds at the left side. Abdomen: Soft. Positive bowel sounds. Nontender. No organomegaly. Genitourinary: Indwelling Davis catheter was noted. Musculoskeletal: Good range of motions Central Nervous System (TOURING PRODUCTION MANAGER): No focal deficit. Power is 5/5 in all extremities. Assessment and plan 1. Acute renal failure: Creatinine improving. Likely etiology is dehydration and severe diarrhea leading to prerenal etiology. Patient already has a Davis cath eter in place and the patient has been making good amount of urine. Creatinine has trended down to 2.9. We discontinue IV fluids. Encourage oral intake Nephrology is also following along. His diuretic especially his thiazide is on hold. We will avoid any nephrotoxic drugs. Input output monitoring. Avoid any contrast. 2. Fever: Resolved. Likely secondary to salmonella infection. We will continue t o monitor and continue IV ciprofloxacin. Patient continues to be on IV fluids 3. Abdominal pain: Likely secondary to somnolent infection. We will escalate the diet as tolerated 4. Hypovolemic hyponatremia: Resolved. Also likely the etiology for his hypochloremia. We'll continue to provide IV fluids and recheck a basic metabolic panel 5. Diabetes mellitus: Hold oral agents and continue sliding scale insulin. We'll optimize insulin as per 24-hour insulin requirement. 6. Hypomagnesemia and hyperphosphatemia: Likely related to his acute renal failure. Continue replacement. DVT PROPHYLAXIS:Heparin twice a day DISPOSITION: Likely discharge home in the next 24-48 hours VS,Fishbone, I+O VS, Fishbone, I+O Laboratory Tests 12/25/18 04:45 Red Blood Count 3.46 L, Mean Corpuscular Volume 84.7, Mean Corpuscular Hemoglobin 29.2, Mean Corpuscular Hemoglobin Concent 34.5, Red Cell Distribution Width 13.4, Calcium Level 7.1 L Vital Signs Date Time Temp Pulse Resp B/P (MAP) Pulse Ox O2 Delivery O2 Flow Rate FiO2 12/25/18 08:11 20 12/25/18 08:10 88 129/76 12/25/18 08:00 97.9 97 I&O- Last 24 Hours up to 6 AM 12/25/18 06:00 Intake Total 1915 ml Output Total 4200 ml Balance -2285 ml TERI KENT MD Dec 25, 2018 10:35
[2018-12-25 12:00] VITALS: BP 112/68
[2018-12-25] MEDS: cefTRIAXone SOD 2 GM in D5W MINI-BAG PLUS 50 ML IV SCH (12:30)
[2018-12-25 16:00] VITALS: BP 121/72
--- NOTE | 2018-12-25 16:37 | IPN ---
DATE: 12/25/2018 SUBJECTIVE: Patient was seen and examined at the bedside today morning. He is afebrile, hemodynamically stable. Patient reports that his diarrhea is improving now and stools are more formed. His urine output is also improving. Renal function continues to improve. Creatinine is down to 2.1 today. His intravenous (IV) bicarbonate-containing fluids were stopped today by primary team. OBJECTIVE: VITAL SIGNS: Temperature is 97.9 degrees Fahrenheit, blood pressure 129/76, pulse is 88, respiratory rate of 20, saturating 997% on room air. INTAKE AND OUTPUT: Urine output recorded is 3.7 liters yesterday; 1 liter so far today since overnight. Weight in the bed scale is not available. PHYSICAL EXAMINATION: GENERAL: Patient is awake, alert, oriented times three, morbidly obese, laying in bed in no apparent distress. HEAD AND NECK EXAM: Extraocular muscles intact. Pupils equally round and reactive to light. Mucous membranes are moist. Neck is supple. There is no jugular venous distention (JVD). CARDIOVASCULAR: S1, S2. Regular rate. No edema of the bilateral lower extremities. RESPIRATORY: Chest is clear to auscultation bilaterally. Bilateral equal air entry. No rales or rhonchi. ABDOMEN: Soft, obese, positive bowel sounds. Nontender. No organomegaly. MUSCULOSKELETAL: No clubbing or cyanosis. Pulses are 2+. CENTRAL NERVOUS SYSTEM (BIOSECURITY OFFICER): No focal deficit. Power is 5/5 in all extremities. LABORATORY REVIEW: Complete blood count (CBC) showed a WBC of 4.8, hemoglobin 10.1, platelets of 245. Basic metabolic panel (BMP) showed sodium 139, potassium 3.1, chloride 105, bicarbonate 26, BUN 39, creatinine is 2.1; it was 5.6 yesterday. CURRENT INPATIENT MEDICATIONS: Patient 's medications were all reviewed by me. IV bicarbonate fluids were stopped. Patient was getting normal saline 75 mL an hour. I have stopped that fluid as well. He continues to be on IV antibiotics. He was given a dose of potassium chloride 40 mEq times one dose. ASSESSMENT AND PLAN: 1. Acute renal failure. Patient is nonoliguric. He is making good amount of urine. IV fluids are being stopped. Renal function continues to improve. 2. Hypokalemia. Patient was given potassium 40 mEq by mouth times one dose. Hypokalemia is secondary to diuresis after renal failure. 3. Non-normal anion gap metabolic acidosis. Acidosis has resolved. IV bicarbonate fluids have been stopped. 4. Salmonella gastroenteritis. Patient is currently on IV ceftriaxone. Symptomatically, he is getting significantly better. 5. Diabetes mellitus type 2. Avoid use of metformin. Okay to use sulfonylurea or insulin sliding scale. DISPOSITION: Patient's renal function is improving. Nephrology service is going to sign off at this moment.
[2018-12-25 20:00] VITALS: BP 136/74
[2018-12-26] VITALS: BP 124/63
[2018-12-26 04:00] VITALS: BP 123/75
[2018-12-26 04:58] LABS: HEMATOCRIT 29.7 % (42.0-52.0); MEAN CORPUSCULAR HEMOGLOBIN 28.6 pg (27.0-33.0); MEAN CORPUSCULAR HGB CONC 33.7 g/dl (32.0-36.5); MEAN CORPUSCULAR VOLUME 84.9 fl (80.0-96.0); PLATELET COUNT, AUTOMATED 293 10^3/uL (150-450); WHITE BLOOD COUNT 5.5 10^3/uL (4.0-10.0)
[2018-12-26 05:26] LABS: BLOOD UREA NITROGEN 25 MG/DL (7-18); CARBON DIOXIDE LEVEL 29 MEQ/L (21-32); CHLORIDE LEVEL 109 MEQ/L (98-107); CREATININE FOR GFR 1.29 MG/DL (0.70-1.30); GLOMERULAR FILTRATION RATE > 60.0 (>60); GLUCOSE, FASTING 253 MG/DL (70-100); POTASSIUM SERUM 3.7 MEQ/L (3.5-5.1); SODIUM LEVEL 141 MEQ/L (136-145)
[2018-12-26] MEDS: HEPARIN SOD (PORCINE) 5000 UNITS/ML VIAL SC SCH (06:18)
[2018-12-26 08:00] VITALS: BP 130/78
[2018-12-26] MEDS: DIVALPROEX 125 MG TAB PO SCH (08:38)
[2018-12-26 08:39] VITALS: BP 130/78
[2018-12-26] MEDS: DULoxetine 20 MG CAP (CYMBALTA) PO SCH (08:39)
[2018-12-26] MEDS: METOPROLOL TART 25 MG TABLET PO SCH (08:39)
[2018-12-26] MEDS: PANTOPRAZOLE 40MG INJ (PROTONIX) (C9113) IV SCH (08:40)
[2018-12-26] MEDS: HumaLOG INSULIN (NovoLOG) PER UNIT SC SCH (08:40)
[2018-12-26] MEDS ORDERED: CIPR-249 PO (10:07)
--- NOTE | 2018-12-26 10:08 | DS.PDOC ---
Discharge Summary General Date of Admission Dec 21, 2018 at 22:30 Date of Discharge General: The patient is awake, alert, oriented x3, sitting up in the bed in no apparent distress. Today Discharge Summary CHIEF COMPLAINT: Patient presented to the hospital overnight with nausea, vomiting, diarrhea and fever. Final diagnosis Salmonella diarrhea Acute kidney injury Diabetes mellitus. 2 Hypertension HISTORY OF PRESENT ILLNESS: Mr. Cas De Santiago is a 38-year-old male with past medical history of diabetes mellitus type 2, history of hypertension, who apparently has a normal renal function as baseline. Baseline creatinine is close to 1 as of November,. Patient reports that four days ago, he ate salad outside and within 24 hours after eating outside he started having severe nausea, vomiting and diarrhea. He was having above 5-6 episodes of diarrhea and about 4-5 episodes of vomiting every day. He kept on feeling weaker and weaker. His urine output decreased and his urine was very dark; however, despite all of his illness, he kept on taking his home medications, which included lisinopril, hydrochlorothiazide and metformin. In the emergency room, patient was found to be in acute renal failure with a creatinine of 6.2 and hyponatremia with a sodium of 129. Patient was admitted He was started on intravenous (IV) fluid hydration. Gastrointestinal (GI) panel came back positive for Salmonella. Nephrology also saw the patient and they have recommended conservative Management. The patient continued to be on IV Rocephin , has been on IV antibiotics for the last 5 days . His renal function Improving and Today His Creatinine Is down to 1.29. IV Antibiotics Were Continued and His IV Fluids Were Discontinued and His Renal Function Since remained stable. He has been having good urine output. He'll be discharged on 500 twice a day of ciprofloxacin for 12 more days. He is optimized for discharge today. Physical examination on discharge Head and Neck Exam: Extraocular muscles intact. Pupils equally round and reactive to light. Mucous membranes are moist. Neck is supple. There is no jugular venous distention (JVD). Cardiovascular: S1 and S2, regular rate. Trace edema of the bilateral lower extremities. Respiratory: Lungs clear auscultation Abdomen: Soft. Positive bowel sounds. Nontender. No organomegaly. Genitourinary: Deferred Musculoskeletal: Good range of motions Central Nervous System (FIELD MECHANIC/SITE LEAD): No focal deficit. Power is 5/5 in all extremities. Vital Signs Date Time Temp Pulse Resp B/P (MAP) Pulse Ox O2 Delivery O2 Flow Rate FiO2 12/26/18 08:39 75 130/78 12/26/18 08:00 98.0 75 20 130/78 (95) 96 12/26/18 04:00 97.0 73 18 123/75 (91) 94 12/26/18 00:00 97.1 79 18 124/63 (83) 94 12/25/18 22:43 16 12/25/18 21:58 16 12/25/18 20:29 84 136/74 12/25/18 20:00 97.3 84 16 136/74 (94) 97 12/25/18 16:37 20 12/25/18 16:00 20 12/25/18 16:00 96.6 78 18 121/72 (88) 98 12/25/18 12:00 96.4 78 18 112/68 (83) 96 Intake & Output 12/26/18 06:00 Intake Total 2375 ml Output Total 1400 ml Balance 975 ml Laboratory Tests 12/25/18 12:18: Bedside Glucose (Misc Panel) 252H 12/25/18 16:46: Bedside Glucose (Misc Panel) 226H 12/25/18 20:02: Bedside Glucose (Misc Panel) 302H 12/26/18 04:44: White Blood Count 5.5, Red Blood Count 3.50L, Hemoglobin 10.0L, Hematocrit 29. 7L, Mean Corpuscular Volume 84.9, Mean Corpuscular Hemoglobin 28.6, Mean Corpuscular Hemoglobin Concent 33.7, Red Cell Distribution Width 13.9, Platelet Count 293, Nucleated Red Blood Cells % (auto) 0.0, Blood Urea Nitrogen 25H, Creatinine 1.29, Sodium Level 141, Potassium Level 3.7, Chloride Level 109H, Carbon Dioxide Level 29, Calcium Level 8.0L, Anion Gap 3L, Glomerular Filtration Rate > 60.0, Fasting Glucose 253H Current Medications Medications (Trade) Dose Ordered Sig/Lynn Route PRN Reason Start Time Stop Time Status Last Admin Dose Admin Ceftriaxone Sodium 2 gm/ Dextrose 50 ml @ 100 mls/hr Q24H IV 12/23/18 12:00 12/30/18 11:59 12/25/18 12:30 100 MLS/HR Divalproex Sodium (Depakote) 125 mg BID PO 12/22/18 09:00 12/26/18 08:38 125 MG Duloxetine HCl (Cymbalta) 20 mg DAILY PO 12/22/18 09:00 12/26/18 08:39 20 MG Heparin Sodium (Porcine) (Heparin) 5,000 units Q12H SC 12/22/18 06:00 12/26/18 06:18 5,000 UNITS Insulin Human Lispro (HumaLOG INSULIN) See Protocol Table QHS SC 12/21/18 21:00 12/25/18 20:30 4 UNITS Metoprolol Tartrate (Lopressor) 25 mg BID PO 12/22/18 09:00 12/26/18 08:39 25 MG Oxycodone/ Acetaminophen (Percocet 5mg/ 325mg Tablet) 2 tab Q6HP PRN PO SEVERE PAIN (PS 8-10) 12/22/18 00:15 12/25/18 21:58 2 TAB Pantoprazole Sodium (Protonix) 40 mg DAILY IV 12/24/18 09:00 12/26/18 08:40 40 MG Medications As per discharge reconciliation medication list. HCTZ and lisinopril has been discontinued Activity as tolerated Diet. 2 g sodium diet, ADA 1800-calorie diet Follow-up appointments. PCP in 1 week Condition on discharge. Patient is medically optimized for discharge Discharge disposition: Home Total time spent on this discharge including coordination of care, review of chart documentation and extubation contact is around 35 minutes Vital Signs/I&Os Vital Signs Date Time Temp Pulse Resp B/P (MAP) Pulse Ox O2 Delivery O2 Flow Rate FiO2 12/26/18 08:39 75 130/78 12/26/18 08:00 98.0 20 96 I&O- Last 24 Hours up to 6 AM 12/26/18 06:00 Intake Total 2375 ml Output Total 1400 ml Balance 975 ml Laboratory Data Labs 24H Laboratory Tests 2 12/25/18 12:18: Bedside Glucose (Misc Panel) 252H 12/25/18 16:46: Bedside Glucose (Misc Panel) 226H 12/25/18 20:02: Bedside Glucose (Misc Panel) 302H 12/26/18 04:44: Nucleated Red Blood Cells % (auto) 0.0, Anion Gap 3L, Glomerular Filtration Rate > 60.0, Blood Urea Nitrogen 25H, Creatinine 1.29, Sodium Level 141, Potassium Level 3.7, Chloride Level 109H, Carbon Dioxide Level 29, Calcium Level 8.0L CBC/BMP Laboratory Tests 12/26/18 04:44 Red Blood Count 3.50 L, Mean Corpuscular Volume 84.9, Mean Corpuscular Hemoglobin 28.6, Mean Corpuscular Hemoglobin Concent 33.7, Red Cell Distribution Width 13.9, Calcium Level 8.0 L FSBS Laboratory Tests Test 12/25/18 12:18 12/25/18 16:46 12/25/18 20:02 Range/Units Bedside Glucose (Misc Panel) 252 226 302 70-105 MG/DL Microbiology Microbiology 12/22/18 Blood Culture - Preliminary, Resulted No Growth after 72 hours. All specime... 12/22/18 Blood Culture - Preliminary, Resulted No Growth after 72 hours. All specime... 12/22/18 Gastrointestinal Tract Panel (PCR) - Final, Resulted Salmonella Discharge Medications Scheduled Atorvastatin Calcium (Atorvastatin Calcium) 20 Mg Tab, 40 MG PO DAILY, (Reported) Azelastine HCl (Azelastine HCl) 0.1% [place].pump, 2 SPRAY NARES BID, (Reported) Buspirone HCl (Buspirone HCl) 15 Mg Tab, 7.5 MG PO BID, (Reported) Cetirizine HCl (Cetirizine HCl) 10 Mg Tablet, 10 MG PO DAILY, (Reported) Ciprofloxacin HCl (Cipro) 500 Mg Tablet, 500 MG PO BID Divalproex Sodium (Divalproex Sodium) 125 Mg Tab, 125 MG PO BID, (Reported) Dulaglutide (Trulicity) 1.5 Mg/0.5 Ml Pen.injctr, 1.5 MG SC 1XWK, (Reported) TAKES ON THURSDAYS Duloxetine Hcl (Duloxetine HCl) 20 Mg Cap, 20 MG PO DAILY, (Reported) Insulin Glargine,Hum.rec.anlog (Basaglar Kwikpen U-100) 100 Unit/Ml Inj, 28 UNIT SC QAM, (Reported) Insulin Human Lispro (Novolog) 100 U/Ml Inj, 8 UNITS SC QPM, (Reported) TAKES AT DINNERTIME Linagliptin (Tradjenta) 5 Mg Tablet, 5 MG PO DAILY, (Reported) Metformin HCl (Metformin HCl) 500 Mg Tab, 1,000 MG PO BID, (Reported) Metformin HCl (Metformin HCl) 500 Mg Tab, 500 MG PO at noon, (Reported) Metoprolol Tartrate (Metoprolol Tartrate) 25 Mg Tab, 25 MG PO BID, (Reported) Omeprazole (Omeprazole) 20 Mg Capsule.dr, 20 MG PO DAILY, (Reported) Scheduled PRN Cyclobenzaprine HCl (Cyclobenzaprine HCl) 10 Mg Tab, 10 MG PO BID PRN for MUSCLE SPASMS, (Reported) Oxycodone HCl/Acetaminophen (Oxycodon-Acetaminophen 7.5-325) 1 Each Tablet, 1 TAB PO Q6H PRN for PAIN, (Reported) Allergies Coded Allergies: No Known Allergies (Unverified , 12/09/16) TERI KENT MD Dec 26, 2018 10:08
== END 2018-12-26 11:21 | disposition home or self-care (01) | DRG 248 ==
LOC: M PCU 22:30
PROVIDERS: ADMIT Internal Medicine; ATTEND Internal Medicine
DX: A02.0 Salmonella enteritis (principal); N17.9 Acute kidney failure, unspecified; E87.1 Hypo-osmolality and hyponatremia; E83.42 Hypomagnesemia; E83.51 Hypocalcemia; E83.39 Other disorders of phosphorus metabolism; E11.9 Type 2 diabetes mellitus without complications; I10 Essential (primary) hypertension; Z79.899 Other long term (current) drug therapy; G89.29 Other chronic pain; F39 Unspecified mood [affective] disorder; E87.6 Hypokalemia

== ENCOUNTER → 2019-01-23 | Outpatient (CLI) | payer OTHER ==
[~2019-01-23] MED LIST changes: +AZEL1SPR3 NARES; +CETI10TA4 PO; +CIPR-249 PO; -DULO1CAP PO; +DULO1CAP4 PO; +LISI20TA20 PO; -LISI20TA3 PO; +OMEP-218 PO; -OMEP20CA3 PO; +OMEP20CA4 PO; +TRAD5TAB PO; +TRUL0.5I SC
--- NOTE | 2019-02-04 00:27 | ECWPNPC ---
PATIENT NAME: NARESH CONCEPCION : 1980 GENDER: MALE VISIT DATE: 01/23/2019 DISCHARGE DATE: 01/23/19 1405 VISIT LOCKED DATE TIME: PHYSICIAN: SAKSHI HUMPHREY MD RESOURCE: SAKSHI HUMPHREY MD REASON FOR APPOINTMENT 1. W/C REVIEW TO HISTORY OF PRESENT ILLNESS HISTORY OF PRESENT ILLNESS: PAIN THE PATIENT DESCRIBES THE PAIN... 38 YEAR OLD MALE PATIENT WITH A HISTORY OF CHRONIC NECK PAIN. THE PATIENT DESCRIBES THE PAIN ACHING, BURNING, SORE, TENDER, SHARP, STABBING, SHOOTING, DAILY, AND CONTINUOUS WITH A PAIN SCORE OF 5-10/10 DEPENDING ON PHYSICAL ACTIVITY. 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 THE PATIENT SAYS THAT HIS PAIN BEGINS IN HIS NECK AND RADIATES UP TOWARDS HIS HEAD AND DOWN INTO HIS ARMS. THE PATIENT SAYS HIS PAIN IS AFFECTING HIS ABILITY TO PERFORM HIS DAILY ACTIVITIES SUCH CLEANING HIS HOUSE, GROCERY SHOPPING, AND COMPLETING OUTSIDE CHORES. THE PATIENT SAYS HE CAN ONLY RAISE HIS ARMS UP FOR 2 MINUTES AT MOST AND THEN FEELS A BURNING SENSATION IN HIS ARMS AFTERWARDS. PATIENT DENIES UNEXPLAINABLE WEIGHT LOSS, FEVER, CHILLS, NEW CHANGES ON HIS URINARY OR BOWEL CONTROL. FALL RISK SCREENING: SCREENING :NO FALLS REPORTED IN THE LAST YEAR CURRENT MEDICATIONS TAKING CYCLOBENZAPRINE HCL 10 MG TABLET 1 TABLET NEEDED ORALLY FOR SPASMS AND PAIN THREE TIMES A DAY MDD3 TAKING DIVALPROEX SODIUM 125 MG TABLET DELAYED RELEASE 1 TABLET ORALLY ONCE A DAY TAKING LISINOPRIL-HYDROCHLOROTHIAZIDE 20-25 MG TABLET 1 TABLET ORALLY ONCE A DAY TAKING METFORMIN 1000 MG TABLET 1 TAB(S) P.O. BID TAKING METFORMIN 500 MG 1 TAB ORAL AT NOON TAKING METOPROLOL TARTRATE 25 MG TABLET 1 TABLET ORALLY TWICE A DAY TAKING OMEPRAZOLE 20MG 20MG TABLET ORAL TWICE DAILY TAKING DULOXETINE HCL 60 MG CAPSULE DELAYED RELEASE PARTICLES 1 CAPSULE ORALLY DAILY TAKING FLUTICASONE PROPIONATE 50 MCG/ACT SUSPENSION 1 SPRAY IN EACH NOSTRIL NASALLY ONCE A DAY TAKING TRULICITY 0.75 MG/0.5ML SOLUTION PEN-INJECTOR SUBCUTANEOUS , NOTES: WEEKLY TAKING ATORVASTATIN CALCIUM 40 MG TABLET 1 TABLET ORALLY ONCE A DAY TAKING NOVOLOG 100 UNIT/ML SOLUTION 8 UNITS SUBCUTANEOUS DAILY AT DINNER TIME TAKING BUSPIRONE HCL 7.5 MG TABLET 1 TABLET ORALLY TWICE A DAY TAKING PERCOCET 10-325 MG TABLET 1 TABLET NEEDED ORALLY EVERY 6 HRS PRN PAIN MDD=2 NOT-TAKING BACLOFEN 10 MG TABLET 1 TABLET WITH FOOD OR MILK ORALLY THREE TIMES A DAY MEDICATION LIST REVIEWED AND RECONCILED WITH THE PATIENT PAST MEDICAL HISTORY DIABETES HTN (HYPERTENSION) NECK PAIN ALLERGIES N.K.D.A. SURGICAL HISTORY COLONOSCOPY RT CARPEL TUNNEL 2016 LEFT CARPEL TUNNEL 2017 NECK PLATE AND SCREWS MAY 2017 FAMILY HISTORY FATHER: ALIVE, GLAUCOMA, DIAGNOSED WITH HYPERTENSION, OTHER MOTHER: ALIVE, HYPERTHYROID, HYPERTENSION 1 BROTHER(S) - HEALTHY. 2DAUGHTER(S) - HEALTHY. SOCIAL HISTORY GENERAL: TOBACCO USE ARE YOU A:NONSMOKER PAIN CLINIC PFS, CLERGY, PUBLIC HEALTH REFERRALS PFS REFERRAL NEEDED?NO CLERGY REFERRAL NEEDED?NO PUBLIC HEALTH REFERRAL NEEDED?NO WAS THE PROVIDER NOTIFIED OF ANY PERTINENT INFO? N/A HAS THE PATIENT BEEN EDUCATED REGARDING HIS/HER PLAN OF CARE?YES HAS THE PATIENT BEEN EDUCATED REGARDING PAIN, THE RISK FOR PAIN, THE IMPORTANCE OF EFFECTIVE PAIN MANAGEMENT, AND THE PAIN ASSESSMENT PROCESS?YES LATEX QUESTIONNAIRE LATEX ALLERGY : HAVE YOU EVER DEVELOPED ANY TYPE OF REACTION AFTER HANDLING LATEX PRODUCTS SUCH RUBBER GLOVES, CONDOMS, DIAPHRAGMS, BALLOONS, SOCKS, OR UNDERWEAR?NO LATEX ALLERGY : HAVE YOU EVER DEVELOPED ANY TYPE OF REACTION DURING OR AFTER DENTAL APPOINTMENT, VAGINAL/RECTAL EXAMINATION, SURGICAL PROCEDURE, OR ANY OTHER EXPOSURE?NO LATEX RISK : HAVE YOU EVER HAD ANY DIFFICULTY BREATHING OR HIVES AFTER EATING OR HANDLING ANY FRUITS, OR VEGETABLES; SUCH KIWI, BANANAS, STONE FRUITS, OR CHESTNUTSNO LATEX RISK : DO YOU HAVE A PREVIOUS PERSONAL HISTORY OF MORE THAN NINE SURGERIES, SPINA BIFIDA, OR REPEATED CATHERIZATIONS? NO LATEX RISK : ARE YOU FREQUENTLY EXPOSED TO LATEX PRODUCTS IN YOUR OCCUPATION?NO DATE ASKED : 09/26/2018 ADVANCE DIRECTIVE ADVANCE DIRECTIVE DISCUSSED WITH PATIENT:YES HCP DOUGLAS CONCEPCION [phone] EDUCATION LEVEL OF EDUCATION:HIGH SCHOOL HOLINESS [id number] NONE LANGUAGE LANGUAGES SPOKEN:CROATIAN DOMESTIC VIOLENCE DO YOU FEEL SAFE IN YOUR ENVIRONMENT?YES ALCOHOL SCREENING DID YOU HAVE A DRINK CONTAINING ALCOHOL IN THE PAST YEAR?NO POINTS0 INTERPRETATIONNEGATIVE RECREATIONAL DRUG USE DRUG USE?NO LEARNING BARRIERS / SPECIAL NEEDS BARRIERS TO LEARNING?NO HEARING IMPAIRED?NO VISION IMPAIRED?YES :CORRECTIVE LENSES COGNITIVELY IMPAIRED?NO READINESS TO LEARN?YES LEARNING PREFERENCES?NO LEARNING CAPABILITIES PRESENT?YES EMOTIONAL BARRIERS?NO SPECIAL DEVICES?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 HOSPITALIZATION/MAJOR DIAGNOSTIC PROCEDURE NO HOSPITALIZATION HISTORY. REVIEW OF SYSTEMS REVIEWED BY: PROVIDER: SAKSHI HUMPHREY MD . CONSTITUTIONAL: ANY CHANGE IN YOUR MEDICAL CONDITION? NO . CHILLS NO . FEVER NO . INFECTION: DO YOU HAVE NEW INFECTIONS? NO . DO YOU HAVE HISTORY OF MRSA? NO . MUSCULOSKELETAL: ANY NEW PATTERNS OF PAIN OR NUMBNESS? NO . GASTROENTEROLOGY: ANY NEW CHANGE IN BOWEL CONTROL? NO . GENITOURINARY: ANY NEW CHANGE IN BLADDER CONTROL? YES PT REPORTS AN INCREASE IN OCCASIONAL INCONTINENCE, DIFFICULTY HOLDING URINE. . IS THERE A CHANCE YOU COULD BE ? NO . HEMATOLOGY/LYMPH: DO YOU TAKE ANY BLOOD THINNERS? (FOR EXAMPLE- COUMADIN, PLAVIX, AGGRENOX, PLATEL, PRADAXA, OR XARELTO) NO . WHEN WAS YOUR LAST DOSE? DATE: TIME: . NEUROLOGY: HAVE YOU FALLEN IN THE PAST 12 MONTHS? NO . ANY NEW EXTREMITY NUMBNESS OR WEAKNESS? YES PT REPORTS HE HAS HAD PAIN/WEAKNESS IN HIS LEGS FOR SEVERAL YEARS, BUT HAS RECENTLY NOTICED AN INCREASE IN WEAKNESS - HE HAD DIFFICULTY IN RETURNING ON A HALF MILE WALK.. HIS LEGS "SHAKE TERRIBLE" FIRST THING IN THE MORNING WHEN HE IS GOING DOWN STAIRS. . CARDIOLOGY: DO YOU HAVE A PACEMAKER OR DEFIBRILLATOR? NO . RESPIRATORY: HAVE YOU BEEN SICK IN THE PAST WEEK? NO . FEVER NO . FLU LIKE SYMPTOMS? NO . COUGH NO . INTEGUMENTARY: DO YOU HAVE ANY RASHES OR OPEN SORES? NO . ALLERGIC/IMMUNO: ARE YOU ALLERGIC TO IV DYE? NO . ANY NEW ALLERGIES? NO . PSYCHIATRIC: DO YOU HAVE THOUGHTS OF HURTING YOURSELF OR SOMEONE ELSE? NO . ARE YOU ABUSED, NEGLECTED, OR IN AN UNSAFE ENVIRONMENT? NO . ENDOCRINOLOGY: ARE YOU DIABETIC? YES . OTHER: DO YOU NEED ANY PRESCRIPTIONS? NO . IF YES, PLEASE LIST: ____ . ANY NEW PROBLEMS WITH YOUR MEDICATIONS? NO . WHEN DID YOU LAST EAT? ____ . WHEN DID YOU LAST DRINK? ____ . WHAT DID YOU LAST DRINK? ____ . NAME OF PERSON DRIVING YOU HOME? ____ . DO YOU HAVE ANY OTHER QUESTIONS OR CONCERNS NO . VITAL SIGNS WT 280.4 LBS, HT 68 IN, BMI 42.63 INDEX, BP 120/68 MM HG, HR 101 /MIN, RR 18 /MIN, TEMP 97.4 F, OXYGEN SAT % 98%, SAFE IN ENV? (Y/N) YES, NA INITIALS AW 1302, REVIEWED BY: MARINA. EXAMINATION GENERAL EXAMINATION: PATIENT IS ALERT O X 3 AND COOPERATIVE. TENDERNESS IN THE NECK. PAIN INCREASES OVER THE CERVICAL FACET JOINTS WITH EXTENSION AND LATERAL ROTATION OF THE NECK. MRI OF THE CERVICAL SPINE DONE ON 09/16/2018 SHOWS POST LAMINECTOMY AND FACET ARTHROPATHY CHANGES. 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 CONCEPCION'S PAIN MANAGEMENT CASE. DUE TO THE CERVICAL SPONDYLOSIS, I WOULD LIKE TO MOVE FORWARD WITH A BILATERAL C2-C3, C3-C4 CERVICAL FACET BLOCK AT THIS TIME. THE PATIENT WOULD LIKE TO MOVE FORWARD WITH IV SEDATION DUE TO DISCOMFORT, PAIN, AND ANXIETY ASSOCIATED WITH THE PROCEDURE. WE DISCUSSED THE BENEFITS, RISKS, AND ALTERNATIVES OF THE INJECTION AND THE PATIENT WOULD LIKE TO PROCEED. I AM DECREASING AND REFILLING THE OXYCODONE TO ONE TABLET DAILY TO BE TAKEN NEEDED WHEN THE PAIN BECOMES SEVERE. THE PATIENT FEELS HE CAN USE MORE OF THE MEDICATION FOR HIS PAIN, BUT HE AGREES TO THIS PLAN. I WILL START THE PATIENT ON GABAPENTIN 300 MG TO HELP WITH THE NEUROPATHIC PAIN DOWN HIS ARMS. I PROVIDED A SCHEDULE FOR THE PATIENT TO FOLLOW TO SLOWLY INCREASE UP TO 3 TABLETS DAILY IN ORDER TO AVOID ANY ADVERSE SIDE EFFECTS. URINE TOXICOLOGY DONE ON 11/28/2018 SHOWS CONCURRENT RESULTS. ISTOP _# [id number] WAS REVIEWED. PILL COUNTING DONE ON 09/26/2018 SHOWS APPROPRIATE QUANTITY. THE PATIENT WILL FOLLOW UP IN SEVERAL WEEKS FOR A PRE-SEDATE APPOINTMENT BEFORE THE PROCEDURE. THE PATIENT WILL FOLLOW UP WITH THE NURSE PRACTITIONER IN 2 MONTHS AFTER THE PROCEDURE. INSTRUCTIONS WERE GIVEN, QUESTIONS WERE ANSWERED, PATIENT REPORTS UNDERSTANDING AND AGREES WITH THE PLAN. I, ALENA MOREL, DOCUMENTED THE ABOVE INFORMATION ACTING A SCRIBE FOR DR. HUMPHREY. I HAVE REVIEWED THE ABOVE DOCUMENT, WRITTEN BY ALENA CHILDERS AND I VERIFY THAT IT IS ACCURATE. . OTHERS REFILL PERCOCET TABLET, 10-325 MG, 1 TABLET NEEDED, ORALLY, DAILY FOR PAIN MDD1, 30 DAYS, 30, REFILLS 0 START GABAPENTIN CAPSULE, 300 MG, 1 CAPSULE, ORALLY FOR PAIN, THREE TIMES DAILY MDD3, 30 DAY(S), 90, REFILLS 1 PROCEDURES PN WORKMANS' COMP OPINION IN YOUR OPINION, WAS THE INCIDENT THAT THE PATIENT DESCRIBED THE COMPETENT MEDICAL CAUSE OF THIS INJURY/ILLNESS? YES ARE THE PATIENT'S COMPLAINTS CONSISTENT WITH HIS/HER HISTORY OF THE INJURY/ILLNESS? YES IS THE PATIENT'S HISTORY OF THE INJURY/ILLNESS CONSISTENT WITH YOUR OBJECTIVE FINDING? YES WHAT IS THE PERCENTAGE OF TEMPORARY IMPAIRMENT? TOTAL = 100% IS THE PATIENT WORKING? NO DOCTOR ON SITE: SAKSHI ALFREDO MD PREVENTIVE MEDICINE PAIN CLINIC TEACHING: MEDICATIONS INFORMATIONAL HANDOUT FOR GABAPENTIN PRINTED AND REVIEWED WITH PT. LAS. PROCEDURE TEACHING CERVICAL FACET BLOCK INFORMATION PRINTED AND REVIEWED WITH PATIENT. PRE PROCEDURE INSTRUCTIONS REVIEWED WITH PATIENT. PATIENT VERBALIZES UNDERSTANDING. LAS. PROCEDURE CODES FA211 ESTABILISHED PATIENT [facility] FACILITY CHARGE G8427 CURRENT MEDS W/DOSAGES DOCUMENTED G8730 PAIN ASSESS POS TOOL F/U PLAN DOC DISPOSITION & COMMUNICATION FOLLOW UP 2 MONTHS (REASON: MAMIE CERVICAL FB W/ IV SEDATE-- PRE-OP F/U NEEDED. F/U 2 MTHS AFTER W/ BLOW MOLDER) ELECTRONICALLY SIGNED BY SAKSHI HUMPHREY MD, MD ON 02/03/2019 AT 01:37 PM EDT DISCLAIMER : THIS IS A VISIT SUMMARY EXTRACTED FROM THE [employer] CHART. IT IS NOT A COPY OF THE [employer] PROGRESS NOTE. MTDD
== END ==
LOC: M PAIN 13:00
PROVIDERS: ATTEND Anesthesiology
DX: M47.812 Spondylosis without myelopathy or radiculopathy, cervical region (principal); M96.1 Postlaminectomy syndrome, not elsewhere classified; E11.9 Type 2 diabetes mellitus without complications; I10 Essential (primary) hypertension; E66.01 Morbid (severe) obesity due to excess calories; Z68.41 Body mass index [BMI] 40.0-44.9, adult; Z79.4 Long term (current) use of insulin; Z79.899 Other long term (current) drug therapy

== ENCOUNTER → 2019-02-03 | Outpatient (CLI) | payer OTHER ==
--- NOTE | 2019-02-04 23:27 | ECWPNPC ---
PATIENT NAME: NARESH CONCEPCION : 1980 GENDER: MALE VISIT DATE: 02/03/2019 DISCHARGE DATE: 02/03/19 1149 VISIT LOCKED DATE TIME: PHYSICIAN: PHILLIP MOSES RESOURCE: PHILLIP MOSES REASON FOR APPOINTMENT 1. MEDS HISTORY OF PRESENT ILLNESS HISTORY OF PRESENT ILLNESS: PAIN THE PATIENT DESCRIBES THE PAIN... 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 HE HAD INCREASED HIS MEDIATION TO 2 TABLETS DAILY AND FEELS THIS WORKED WELL TO HELP MANAGE HIS PAIN. HE RATES HIS PAIN AT A 7/10 CURRENTLY AND DESCRIBES IT ACHING, SORE, AND TENDER. HE FEELS THE MEDICATIONS ARE WORKING WELL AND HE DENIES MED SIDE EFFECTS. FALL RISK SCREENING: SCREENING :NO FALLS REPORTED IN THE LAST YEAR CURRENT MEDICATIONS TAKING PERCOCET 10-325 MG TABLET 1 TABLET NEEDED ORALLY DAILY FOR PAIN MDD1 TAKING GABAPENTIN 300 MG CAPSULE 1 CAPSULE ORALLY FOR PAIN THREE TIMES DAILY MDD3 TAKING CYCLOBENZAPRINE HCL 10 MG TABLET 1 TABLET NEEDED ORALLY FOR SPASMS AND PAIN THREE TIMES A DAY MDD3 TAKING DIVALPROEX SODIUM 125 MG TABLET DELAYED RELEASE 1 TABLET ORALLY ONCE A DAY TAKING LISINOPRIL-HYDROCHLOROTHIAZIDE 20-25 MG TABLET 1 TABLET ORALLY ONCE A DAY TAKING METFORMIN 1000 MG TABLET 1 TAB(S) P.O. BID TAKING METFORMIN 500 MG 1 TAB ORAL AT NOON TAKING METOPROLOL TARTRATE 25 MG TABLET 1 TABLET ORALLY TWICE A DAY TAKING OMEPRAZOLE 20MG 20MG TABLET ORAL TWICE DAILY TAKING DULOXETINE HCL 60 MG CAPSULE DELAYED RELEASE PARTICLES 1 CAPSULE ORALLY DAILY TAKING FLUTICASONE PROPIONATE 50 MCG/ACT SUSPENSION 1 SPRAY IN EACH NOSTRIL NASALLY ONCE A DAY TAKING TRULICITY 0.75 MG/0.5ML SOLUTION PEN-INJECTOR SUBCUTANEOUS , NOTES: WEEKLY TAKING ATORVASTATIN CALCIUM 40 MG TABLET 1 TABLET ORALLY ONCE A DAY TAKING NOVOLOG 100 UNIT/ML SOLUTION 8 UNITS SUBCUTANEOUS DAILY AT DINNER TIME TAKING BUSPIRONE HCL 7.5 MG TABLET 1 TABLET ORALLY TWICE A DAY NOT-TAKING BACLOFEN 10 MG TABLET 1 TABLET WITH FOOD OR MILK ORALLY THREE TIMES A DAY MEDICATION LIST REVIEWED AND RECONCILED WITH THE PATIENT PAST MEDICAL HISTORY DIABETES HTN (HYPERTENSION) NECK PAIN ALLERGIES N.K.D.A. SURGICAL HISTORY COLONOSCOPY RT CARPEL TUNNEL 2016 LEFT CARPEL TUNNEL 2017 NECK PLATE AND SCREWS MAY 2017 FAMILY HISTORY FATHER: ALIVE, GLAUCOMA, DIAGNOSED WITH HYPERTENSION, OTHER MOTHER: ALIVE, HYPERTHYROID, HYPERTENSION 1 BROTHER(S) - HEALTHY. 2DAUGHTER(S) - HEALTHY. SOCIAL HISTORY GENERAL: TOBACCO USE ARE YOU A:NONSMOKER PAIN CLINIC PFS, CLERGY, PUBLIC HEALTH REFERRALS PFS REFERRAL NEEDED?NO CLERGY REFERRAL NEEDED?NO PUBLIC HEALTH REFERRAL NEEDED?NO WAS THE PROVIDER NOTIFIED OF ANY PERTINENT INFO? N/A HAS THE PATIENT BEEN EDUCATED REGARDING HIS/HER PLAN OF CARE?YES HAS THE PATIENT BEEN EDUCATED REGARDING PAIN, THE RISK FOR PAIN, THE IMPORTANCE OF EFFECTIVE PAIN MANAGEMENT, AND THE PAIN ASSESSMENT PROCESS?YES LATEX QUESTIONNAIRE LATEX ALLERGY : HAVE YOU EVER DEVELOPED ANY TYPE OF REACTION AFTER HANDLING LATEX PRODUCTS SUCH RUBBER GLOVES, CONDOMS, DIAPHRAGMS, BALLOONS, SOCKS, OR UNDERWEAR?NO LATEX ALLERGY : HAVE YOU EVER DEVELOPED ANY TYPE OF REACTION DURING OR AFTER DENTAL APPOINTMENT, VAGINAL/RECTAL EXAMINATION, SURGICAL PROCEDURE, OR ANY OTHER EXPOSURE?NO LATEX RISK : HAVE YOU EVER HAD ANY DIFFICULTY BREATHING OR HIVES AFTER EATING OR HANDLING ANY FRUITS, OR VEGETABLES; SUCH KIWI, BANANAS, STONE FRUITS, OR CHESTNUTSNO LATEX RISK : DO YOU HAVE A PREVIOUS PERSONAL HISTORY OF MORE THAN NINE SURGERIES, SPINA BIFIDA, OR REPEATED CATHERIZATIONS? NO LATEX RISK : ARE YOU FREQUENTLY EXPOSED TO LATEX PRODUCTS IN YOUR OCCUPATION?NO DATE ASKED : 09/26/2018 ADVANCE DIRECTIVE ADVANCE DIRECTIVE DISCUSSED WITH PATIENT:YES HCP DOUGLAS CONCEPCION [phone] EDUCATION LEVEL OF EDUCATION:HIGH SCHOOL ORIENTAL ORTHODOX [id number] NONE LANGUAGE LANGUAGES SPOKEN:WELSH DOMESTIC VIOLENCE DO YOU FEEL SAFE IN YOUR ENVIRONMENT?YES ALCOHOL SCREENING DID YOU HAVE A DRINK CONTAINING ALCOHOL IN THE PAST YEAR?NO POINTS0 INTERPRETATIONNEGATIVE RECREATIONAL DRUG USE DRUG USE?NO LEARNING BARRIERS / SPECIAL NEEDS BARRIERS TO LEARNING?NO HEARING IMPAIRED?NO VISION IMPAIRED?YES :CORRECTIVE LENSES COGNITIVELY IMPAIRED?NO READINESS TO LEARN?YES LEARNING PREFERENCES?NO LEARNING CAPABILITIES PRESENT?YES EMOTIONAL BARRIERS?NO SPECIAL DEVICES?NO TICKET WORKER NEEDED?NO REVIEWED WITH PT 03/26/18 1038 LASREVIEWED WITH PT 06/09/18 1325 LASREVIEWED WITH PT 08/25/18 1535 LASREVIEWED WITH PT 09/26/18 1049 BVREVIEWED WITH PT 11/28/18 1017 BVREVIEWED WITH PATIENT 02/03/19 1138 NLJREVIEWED WITH PATIENT 02/03/19 1101 NLJREVIEWED WITH PT 01/23/19 1315 LAS. HOSPITALIZATION/MAJOR DIAGNOSTIC PROCEDURE FOOD POISIONING AND ACF ONE WEEK HOSPITALIZATION 12/25/18 REVIEW OF SYSTEMS REVIEWED BY: PROVIDER: KALEIGH VELÁSQUEZ . CONSTITUTIONAL: ANY CHANGE IN YOUR MEDICAL CONDITION? YES- FOOD POISIONING AND ARF IN DECEMBER 2018- WAS HOSPITALIZED . CHILLS NO . FEVER NO . INFECTION: DO YOU HAVE NEW INFECTIONS? NO . DO YOU HAVE HISTORY OF MRSA? NO . MUSCULOSKELETAL: ANY NEW PATTERNS OF PAIN OR NUMBNESS? NO . GASTROENTEROLOGY: ANY NEW CHANGE IN BOWEL CONTROL? NO . GENITOURINARY: ANY NEW CHANGE IN BLADDER CONTROL? NO . IS THERE A CHANCE YOU COULD BE ? NO . HEMATOLOGY/LYMPH: DO YOU TAKE ANY BLOOD THINNERS? (FOR EXAMPLE- COUMADIN, PLAVIX, AGGRENOX, PLATEL, PRADAXA, OR XARELTO) NO . WHEN WAS YOUR LAST DOSE? DATE: TIME: . NEUROLOGY: HAVE YOU FALLEN IN THE PAST 12 MONTHS? NO . ANY NEW EXTREMITY NUMBNESS OR WEAKNESS? NO . CARDIOLOGY: DO YOU HAVE A PACEMAKER OR DEFIBRILLATOR? NO . RESPIRATORY: HAVE YOU BEEN SICK IN THE PAST WEEK? NO . FEVER NO . FLU LIKE SYMPTOMS? NO . COUGH NO . INTEGUMENTARY: DO YOU HAVE ANY RASHES OR OPEN SORES? NO . ALLERGIC/IMMUNO: ARE YOU ALLERGIC TO IV DYE? NO . ANY NEW ALLERGIES? NO . PSYCHIATRIC: DO YOU HAVE THOUGHTS OF HURTING YOURSELF OR SOMEONE ELSE? NO . ARE YOU ABUSED, NEGLECTED, OR IN AN UNSAFE ENVIRONMENT? NO . ENDOCRINOLOGY: ARE YOU DIABETIC? YES . OTHER: DO YOU NEED ANY PRESCRIPTIONS? YES . IF YES, PLEASE LIST: ____OXYCODONE . ANY NEW PROBLEMS WITH YOUR MEDICATIONS? NO . WHEN DID YOU LAST EAT? ____ . WHEN DID YOU LAST DRINK? ____ . WHAT DID YOU LAST DRINK? ____ . NAME OF PERSON DRIVING YOU HOME? ____ . DO YOU HAVE ANY OTHER QUESTIONS OR CONCERNS NO . VITAL SIGNS WT 275.6 LBS, HT 68 IN, BMI 41.90 INDEX, BP 119/75 MM HG, HR 91 /MIN, RR 18 /MIN, TEMP 97.9 F, OXYGEN SAT % 95%, SAFE IN ENV? (Y/N) YES, NA INITIALS AW 1100, REVIEWED BY: JUNIE. EXAMINATION GENERAL EXAMINATION: GENERALNO ACUTE DISTRESS, WELL NOURISHED AND HYDRATED. PSYCHAPPROPRIATE MOOD AND AFFECT . LUNGS:CLEAR TO AUSCULTATION BILATERALLY, NO WHEEZES, RHONCHI, RALES. HEART:NO MURMURS, REGULAR RATE AND RHYTHM. 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 CONSULTED WITH DR. HUMPHREY REGARDING PATIENT AND GIVEN PRESENTING SYMPTOMS AND RESULTS OF PHYSICAL EXAMINATION RECOMMENDED TWO TABS DAILY ONLY WHEN ABSOLUTELY NEEDED GIVING PATIENT A SUPPLY OF 45 TABS TO LAST 1 MONTH WITH FOLLOW UP IN 3 WEEKS. PATIENT HAS EXPRESSED UNDERSTANDING OF AND WAS IN AGREEMENT WITH TREATMENT PLAN. GIVEN TIME TO ASK QUESTIONS AND EXPRESS CONCERNS. , ISTOP REGISTRY REVIEWED AND DEMONSTRATES COMPLLIANCE. (REF #[id number] ) BRINGS IN MEDICATIONS WHICH IS APPROPRIATE FOR WHAT WAS DISPENSED. RECENT URINE TOXICOLOGY REVIEWED. NO UNAUTHORIZED MEDICATIONS. NO ILLICIT SUBSTANCES AND PRESCRIBED MEDICATIONS WERE PRESENT. , RISKS AND BENEFITS OF NARCOTIC/OPIOD MEDICATIONS WERE REVIEWED WITH PATIENT - THIS INCLUDES BUT IS NOT LIMITED TO RISK OF DEPENDANCE/DEVELOPMENT OF ADDICTION, MOOD DISTURBANCE AND DEPRESSION, OSTEOPOROSIS, HORMONAL AND LABIDAL CHANGES, RESPIRATORY DEPRESSION AND . PATIENT IS ADVISED NOT TO DRIVE OR DRINK ALCOHOL WHILE ON THESE MEDICATIONS. OTHERS REFILL PERCOCET TABLET, 10-325 MG, 1 TABLET NEEDED, ORALLY, EVERY 8 HRS NEEDED FOR PAIN MDD 1-2 45 PILLS SHOULD LAST 30 DAYS, 30 DAYS, 45, REFILLS 0 PROCEDURES PN WORKMANS' COMP OPINION IN YOUR OPINION, WAS THE INCIDENT THAT THE PATIENT DESCRIBED THE COMPETENT MEDICAL CAUSE OF THIS INJURY/ILLNESS? YES ARE THE PATIENT'S COMPLAINTS CONSISTENT WITH HIS/HER HISTORY OF THE INJURY/ILLNESS? YES IS THE PATIENT'S HISTORY OF THE INJURY/ILLNESS CONSISTENT WITH YOUR OBJECTIVE FINDING? YES WHAT IS THE PERCENTAGE OF TEMPORARY IMPAIRMENT? TOTAL = 100% IS THE PATIENT WORKING? NO DOCTOR ON SITE: SAKSHI ALFREDO MD PROCEDURE CODES FA211 ESTABILISHED PATIENT [facility] CHARGE DISPOSITION & COMMUNICATION ELECTRONICALLY SIGNED BY JEREMIAH IBARRA ON 02/04/2019 AT 01:03 PM EDT DISCLAIMER : THIS IS A VISIT SUMMARY EXTRACTED FROM THE [employer] CHART. IT IS NOT A COPY OF THE [facility] PROGRESS NOTE. MTDD
== END ==
LOC: M PAIN 11:00
PROVIDERS: ATTEND Family Medicine
DX: M47.812 Spondylosis without myelopathy or radiculopathy, cervical region (principal); E11.9 Type 2 diabetes mellitus without complications; I10 Essential (primary) hypertension; E66.01 Morbid (severe) obesity due to excess calories; Z68.41 Body mass index [BMI] 40.0-44.9, adult; Z79.4 Long term (current) use of insulin; Z79.899 Other long term (current) drug therapy

== ENCOUNTER → 2019-02-24 | Outpatient (CLI) | payer OTHER ==
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
== END ==
LOC: M PAIN 09:30
PROVIDERS: ATTEND Family Medicine
DX: M79.18 Myalgia, other site (principal); M47.813 Spondylosis without myelopathy or radiculopathy, cervicothoracic region; E11.9 Type 2 diabetes mellitus without complications; I10 Essential (primary) hypertension; E66.01 Morbid (severe) obesity due to excess calories; Z68.41 Body mass index [BMI] 40.0-44.9, adult; Z79.4 Long term (current) use of insulin; Z79.899 Other long term (current) drug therapy

== ENCOUNTER → 2019-05-08 | Outpatient (CLI) | payer OTHER ==
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
== END ==
LOC: M PAIN 14:15
PROVIDERS: ATTEND Family Medicine
DX: M50.122 Cervical disc disorder at C5-C6 level with radiculopathy (principal); E11.9 Type 2 diabetes mellitus without complications; I10 Essential (primary) hypertension; Z79.4 Long term (current) use of insulin; Z79.891 Long term (current) use of opiate analgesic; Z79.899 Other long term (current) drug therapy

== ENCOUNTER → 2019-09-04 | Outpatient (CLI) | payer OTHER ==
[~2019-09-04] MED LIST changes: +OMEP1CAP73 PO; -OMEP20CA4 PO
--- NOTE | 2019-09-08 03:12 | ECWPNPC ---
PATIENT NAME: NARESH CONCEPCION : 1980 GENDER: MALE VISIT DATE: 09/04/2019 DISCHARGE DATE: 09/04/19 1051 VISIT LOCKED DATE TIME: PHYSICIAN: PHILLIP MOSES RESOURCE: PHILLIP MOSES REASON FOR APPOINTMENT 1. NECK HISTORY OF PRESENT ILLNESS HISTORY OF PRESENT ILLNESS: PAIN THE PATIENT DESCRIBES THE PAIN... 39-YEAR-OLD MALE IN FOR CHRONIC PAIN FOLLOW-UP. HE RATES HIS PAIN AT A 7 OUT OF 10 CURRENTLY AND DESCRIBES IT ACHING, SHARP, SORE, SHOOTING, AND TENDER. HE WAS STARTED ON METHOCARBAMOL AT LAST CLINIC VISIT AND ADMITS TODAY THAT THIS HAS BEEN INEFFECTIVE AND HE WOULD LIKE TO SWITCH BACK TO HIS TIZANIDINE. FALL RISK SCREENING: SCREENING :NO FALLS REPORTED IN THE LAST YEAR CURRENT MEDICATIONS TAKING GABAPENTIN 300 MG CAPSULE 1 CAPSULE ORALLY TID TAKING DIVALPROEX SODIUM 125 MG TABLET DELAYED RELEASE 1 TABLET ORALLY DAILY TAKING LISINOPRIL-HYDROCHLOROTHIAZIDE 20-25 MG TABLET 1 TABLET ORALLY ONCE A DAY TAKING METFORMIN HCL 1000 MG TABLET 1 TABLET WITH A MEAL ORALLY BID TAKING METFORMIN HCL 500 MG TABLET 1 TABLET WITH A MEAL ORALLY ONCE A DAY TAKING METOPROLOL TARTRATE 25 MG TABLET 1 TABLET WITH FOOD ORALLY TWICE A DAY TAKING OMEPRAZOLE 20 MG CAPSULE DELAYED RELEASE 1 CAPSULE 30 MINUTES BEFORE MORNING MEAL ORALLY ONCE A DAY TAKING DULOXETINE HCL 60 MG CAPSULE DELAYED RELEASE PARTICLES 1 CAPSULE ORALLY ONCE A DAY TAKING FLONASE ALLERGY RELIEF 50 MCG/ACT SUSPENSION 1 SPRAY IN EACH NOSTRIL NASALLY ONCE A DAY TAKING TRULICITY 0.75 MG/0.5ML SOLUTION PEN-INJECTOR DIRECTED SUBCUTANEOUS TAKING ATORVASTATIN CALCIUM 40 MG TABLET 1 TABLET ORALLY ONCE A DAY TAKING NOVOLOG 100 UNIT/ML SOLUTION DIRECTED SUBCUTANEOUS TAKING BUSPIRONE HCL 7.5 MG TABLET 1 TABLET ORALLY TWICE A DAY TAKING PERCOCET 10-325 MG TABLET 1 TABLET NEEDED ORALLY EVERY 6 HRS TAKING METHOCARBAMOL 750 MG TABLET 1 TABLET ORALLY EVERY 4 HRS MEDICATION LIST REVIEWED AND RECONCILED WITH THE PATIENT PAST MEDICAL HISTORY DIABETES HTN (HYPERTENSION) NECK PAIN ALLERGIES N.K.D.A. SURGICAL HISTORY COLONOSCOPY RT CARPEL TUNNEL 2016 LEFT CARPEL TUNNEL 2017 NECK PLATE AND SCREWS MAY 2017 FAMILY HISTORY FATHER: ALIVE, GLAUCOMA, DIAGNOSED WITH HYPERTENSION, OTHER SPECIFIED CONDITIONS INFLUENCING HEALTH STATUS MOTHER: ALIVE, HYPERTHYROID, HYPERTENSION 1 BROTHER(S) - HEALTHY. 2DAUGHTER(S) - HEALTHY. SOCIAL HISTORY GENERAL: TOBACCO USE ARE YOU A:NONSMOKER PAIN CLINIC PFS, CLERGY, PUBLIC HEALTH REFERRALS PFS REFERRAL NEEDED?NO CLERGY REFERRAL NEEDED?NO PUBLIC HEALTH REFERRAL NEEDED?NO WAS THE PROVIDER NOTIFIED OF ANY PERTINENT INFO? N/A HAS THE PATIENT BEEN EDUCATED REGARDING HIS/HER PLAN OF CARE?YES HAS THE PATIENT BEEN EDUCATED REGARDING PAIN, THE RISK FOR PAIN, THE IMPORTANCE OF EFFECTIVE PAIN MANAGEMENT, AND THE PAIN ASSESSMENT PROCESS?YES LATEX QUESTIONNAIRE LATEX ALLERGY : HAVE YOU EVER DEVELOPED ANY TYPE OF REACTION AFTER HANDLING LATEX PRODUCTS SUCH RUBBER GLOVES, CONDOMS, DIAPHRAGMS, BALLOONS, SOCKS, OR UNDERWEAR?NO LATEX ALLERGY : HAVE YOU EVER DEVELOPED ANY TYPE OF REACTION DURING OR AFTER DENTAL APPOINTMENT, VAGINAL/RECTAL EXAMINATION, SURGICAL PROCEDURE, OR ANY OTHER EXPOSURE?NO DATE ASKED : 09/26/2018 LATEX RISK : HAVE YOU EVER HAD ANY DIFFICULTY BREATHING OR HIVES AFTER EATING OR HANDLING ANY FRUITS, OR VEGETABLES; SUCH KIWI, BANANAS, STONE FRUITS, OR CHESTNUTSNO LATEX RISK : DO YOU HAVE A PREVIOUS PERSONAL HISTORY OF MORE THAN NINE SURGERIES, SPINA BIFIDA, OR REPEATED CATHERIZATIONS? NO LATEX RISK : ARE YOU FREQUENTLY EXPOSED TO LATEX PRODUCTS IN YOUR OCCUPATION?NO ADVANCE DIRECTIVE ADVANCE DIRECTIVE DISCUSSED WITH PATIENT:YES HCP DOUGLAS JAMEY [phone] EDUCATION LEVEL OF EDUCATION:HIGH SCHOOL HOLINESS [id number] NONE LANGUAGE LANGUAGES SPOKEN:LITHUANIAN DOMESTIC VIOLENCE DO YOU FEEL SAFE IN YOUR ENVIRONMENT?YES ALCOHOL SCREENING DID YOU HAVE A DRINK CONTAINING ALCOHOL IN THE PAST YEAR?NO POINTS0 INTERPRETATIONNEGATIVE RECREATIONAL DRUG USE DRUG USE?NO LEARNING BARRIERS / SPECIAL NEEDS BARRIERS TO LEARNING?NO HEARING IMPAIRED?NO VISION IMPAIRED?YES COGNITIVELY IMPAIRED?NO :CORRECTIVE LENSES READINESS TO LEARN?YES LEARNING PREFERENCES?NO LEARNING CAPABILITIES PRESENT?YES EMOTIONAL BARRIERS?NO SPECIAL DEVICES?NO ELECTRON BEAM WELDER SETTER NEEDED?NO REVIEWED WITH PT 03/26/18 1038 LASREVIEWED WITH PT 06/09/18 1325 LASREVIEWED WITH PT 08/25/18 1535 LASREVIEWED WITH PT 09/26/18 1049 BVREVIEWED WITH PT 11/28/18 1017 BVREVIEWED WITH PATIENT 02/03/19 1138 NLJREVIEWED WITH PATIENT 02/03/19 1101 NLJREVIEWED WITH PATIENT 02/24/19 0949 NLJREVIEWED WITH PT 01/23/19 1315 LAS. HOSPITALIZATION/MAJOR DIAGNOSTIC PROCEDURE FOOD POISIONING AND ACF ONE WEEK HOSPITALIZATION 12/25/18 REVIEW OF SYSTEMS REVIEWED BY: PROVIDER: KALEIGH VELÁSQUEZ . CONSTITUTIONAL: ANY CHANGE IN YOUR MEDICAL CONDITION? NO . CHILLS NO . FEVER NO . INFECTION: DO YOU HAVE NEW INFECTIONS? NO . DO YOU HAVE HISTORY OF MRSA? NO . MUSCULOSKELETAL: ANY NEW PATTERNS OF PAIN OR NUMBNESS? NO . GASTROENTEROLOGY: ANY NEW CHANGE IN BOWEL CONTROL? NO . GENITOURINARY: ANY NEW CHANGE IN BLADDER CONTROL? NO . IS THERE A CHANCE YOU COULD BE ? NO . HEMATOLOGY/LYMPH: DO YOU TAKE ANY BLOOD THINNERS? (FOR EXAMPLE- COUMADIN, PLAVIX, AGGRENOX, PLATEL, PRADAXA, OR XARELTO) NO . WHEN WAS YOUR LAST DOSE? DATE: TIME: . NEUROLOGY: HAVE YOU FALLEN IN THE PAST 12 MONTHS? NO . ANY NEW EXTREMITY NUMBNESS OR WEAKNESS? NO . CARDIOLOGY: DO YOU HAVE A PACEMAKER OR DEFIBRILLATOR? NO . RESPIRATORY: HAVE YOU BEEN SICK IN THE PAST WEEK? NO . FEVER NO . FLU LIKE SYMPTOMS? NO . COUGH NO . INTEGUMENTARY: DO YOU HAVE ANY RASHES OR OPEN SORES? NO . ALLERGIC/IMMUNO: ARE YOU ALLERGIC TO IV DYE? NO . ANY NEW ALLERGIES? NO . PSYCHIATRIC: DO YOU HAVE THOUGHTS OF HURTING YOURSELF OR SOMEONE ELSE? NO . ARE YOU ABUSED, NEGLECTED, OR IN AN UNSAFE ENVIRONMENT? NO . ENDOCRINOLOGY: ARE YOU DIABETIC? YES . OTHER: DO YOU NEED ANY PRESCRIPTIONS? WOULD LIKE TO GO BACK ON TIZANIDINE . IF YES, PLEASE LIST: ____ . ANY NEW PROBLEMS WITH YOUR MEDICATIONS? METHOCARBAMOL NOT WORKING . WHEN DID YOU LAST EAT? ____ . WHEN DID YOU LAST DRINK? ____ . WHAT DID YOU LAST DRINK? ____ . NAME OF PERSON DRIVING YOU HOME? ____ . DO YOU HAVE ANY OTHER QUESTIONS OR CONCERNS NO . VITAL SIGNS WT 283 LBS, HT 68 IN, BMI 43.03 INDEX, BP 147/91 MM HG, HR 92 /MIN, RR 16 /MIN, OXYGEN SAT % 96, SAFE IN ENV? (Y/N) Y, REVIEWED BY: EM. EXAMINATION GENERAL EXAMINATION: GENERALNO ACUTE DISTRESS, WELL NOURISHED AND HYDRATED. PSYCHAPPROPRIATE MOOD AND AFFECT . LUNGS:CLEAR TO AUSCULTATION BILATERALLY, NO WHEEZES, RHONCHI, RALES. HEART:NO MURMURS, REGULAR RATE AND RHYTHM. 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 GIVEN PRESENTING SYMPTOMS AND RESULTS OF PHYSICAL EXAMINATION RECOMMENDED CONTINUATION OF CURRENT MEDICATION REGIMEN WITH FOLLOW-UP IN 3 MONTHS. PATIENT HAS EXPRESSED UNDERSTANDING OF AND WAS IN AGREEMENT WITH TREATMENT PLAN. GIVEN TIME TO ASK QUESTIONS AND EXPRESS CONCERNS., ISTOP REGISTRY REVIEWED AND DEMONSTRATES COMPLLIANCE. (REF # [id number] ) BRINGS IN MEDICATIONS WHICH IS APPROPRIATE FOR WHAT WAS DISPENSED. RECENT URINE TOXICOLOGY REVIEWED. NO UNAUTHORIZED MEDICATIONS. NO ILLICIT SUBSTANCES AND PRESCRIBED MEDICATIONS WERE PRESENT. DISPOSITION & COMMUNICATION FOLLOW UP 3 MONTHS (REASON: NECK PAIN) ELECTRONICALLY SIGNED BY JEREMIAH IBARRA ON 09/07/2019 AT 01:53 PM EDT DISCLAIMER : THIS IS A VISIT SUMMARY EXTRACTED FROM THE [employer] CHART. IT IS NOT A COPY OF THE [employer] PROGRESS NOTE. VINICIO
== END ==
LOC: M PAIN 10:00
PROVIDERS: ATTEND Family Medicine
DX: M47.813 Spondylosis without myelopathy or radiculopathy, cervicothoracic region (principal); E11.9 Type 2 diabetes mellitus without complications; I10 Essential (primary) hypertension; Z79.84 Long term (current) use of oral hypoglycemic drugs; Z79.891 Long term (current) use of opiate analgesic; Z79.899 Other long term (current) drug therapy

== ENCOUNTER → 2019-12-03 | Outpatient (CLI) | payer OTHER ==
[~2019-12-03] MED LIST changes: +CYCL-707 PO; -CYCL10TA PO
--- NOTE | 2019-12-08 05:08 | ECWPNPC ---
PATIENT NAME: NARESH CONCEPCION : 1980 GENDER: MALE VISIT DATE: 12/03/2019 DISCHARGE DATE: 12/03/19 0942 VISIT LOCKED DATE TIME: PHYSICIAN: PHILLIP MOSES RESOURCE: PHILLIP MOSES REASON FOR APPOINTMENT 1. NECK PAT DONE HISTORY OF PRESENT ILLNESS GENERAL: -PERMISSION REQUESTED AND RECEIVED FROM PATIENT TO PERFORM TELEHEALTH VISIT. 39-YEAR-OLD MALE IN FOR CHRONIC PAIN FOLLOW-UP. HE RATES HIS PAIN CURRENTLY AT A 10 OUT OF 10 AND DESCRIBES IT AN ACHE. PATIENT FEELS MEDICATIONS ARE HELPFUL AND DENIES MED SIDE EFFECTS AT THIS TIME. PAIN SCREENING: PATIENT HAS A COMPLAINT OF ACUTE OR CHRONIC PAIN :YES LOCATION OF PAIN:NECK INTENSITY OF PAIN (SCALE OF 1 TO 10):8 WHAT DOES YOUR PAIN FEEL LIKE:ACHING DURATION:CONTINOUS, CONSTANT, ALL DAY PAIN IS INCREASED BY:ACTIVITIES PAIN IS DECREASED BY:USE OF PAIN MEDICATIONS LAYING DOWN PAIN HAS INTERFERED WITH THE FOLLOWING:MOOD, HOUSEWORK, RELATIONSHIP WITH OTHERS, ENJOYMENT OF LIFE PLAN/GOALS/TREATMENT/INTERVENTION/FOLLOW UP:SEE PLAN FALL RISK SCREENING: SCREENING :NO FALLS REPORTED IN THE LAST YEAR NURSING NOTE: -. PAIN CENTER INTAKE QUESTIONS: DO YOU HAVE A HISTORY OF MRSA? :NO DO YOU TAKE A BLOOD THINNERS? :NO DO YOU HAVE ANY BLEEDING DISORDERS? :NO ANY NEW NUMBNESS OR WEAKNESS IN YOUR LEGS OR ARMS? :NO ANY PACEMAKER,DEFIBRILLATOR, OR DORSAL COLUMN STIMULATOR? :NO DO YOU HAVE ANY RASHES OR OPEN SORES? :NO ARE YOU ALLERGIC TO IV DYE? :NO ARE YOU DIABETIC? :YES ANY NEW PROBLEMS WITH YOUR MEDICATIONS? :NO HAVE YOU RECEIVED A VACCINE IN THE PAST 30 DAYS? :NO DO YOU PLAN TO RECEIVE A VACCINE IN THE NEXT 21 DAYS? :NO DO YOU NEED ANY PRESCRIPTION? :NO DO YOU TAKE ANY IMMUNOSUPPRESSIVE MEDICATIONS? :NO IS THERE A CHANCE YOU COULD BE ? :NO ARE YOU BREAST FEEDING? :NO CURRENT MEDICATIONS TAKING GABAPENTIN 300 MG CAPSULE 1 CAPSULE ORALLY TID TAKING DIVALPROEX SODIUM 125 MG TABLET DELAYED RELEASE 1 TABLET ORALLY DAILY TAKING LISINOPRIL-HYDROCHLOROTHIAZIDE 20-25 MG TABLET 1 TABLET ORALLY ONCE A DAY TAKING METFORMIN HCL 1000 MG TABLET 1 TABLET WITH A MEAL ORALLY BID TAKING METFORMIN HCL 500 MG TABLET 1 TABLET WITH A MEAL ORALLY ONCE A DAY TAKING METOPROLOL TARTRATE 25 MG TABLET 1 TABLET WITH FOOD ORALLY TWICE A DAY TAKING OMEPRAZOLE 20 MG CAPSULE DELAYED RELEASE 1 CAPSULE 30 MINUTES BEFORE MORNING MEAL ORALLY ONCE A DAY TAKING DULOXETINE HCL 60 MG CAPSULE DELAYED RELEASE PARTICLES 1 CAPSULE ORALLY ONCE A DAY TAKING FLONASE ALLERGY RELIEF 50 MCG/ACT SUSPENSION 1 SPRAY IN EACH NOSTRIL NASALLY ONCE A DAY TAKING TRULICITY 0.75 MG/0.5ML SOLUTION PEN-INJECTOR DIRECTED SUBCUTANEOUS TAKING ATORVASTATIN CALCIUM 40 MG TABLET 1 TABLET ORALLY ONCE A DAY TAKING NOVOLOG 100 UNIT/ML SOLUTION DIRECTED SUBCUTANEOUS TAKING BUSPIRONE HCL 7.5 MG TABLET 1 TABLET ORALLY TWICE A DAY TAKING PERCOCET 10-325 MG TABLET 1 TABLET NEEDED ORALLY EVERY 6 HRS TAKING TIZANIDINE HCL 4 MG TABLET 1 TABLET NEEDED ORALLY THREE TIMES A DAY MEDICATION LIST REVIEWED AND RECONCILED WITH THE PATIENT PAST MEDICAL HISTORY DIABETES HTN (HYPERTENSION) NECK PAIN ALLERGIES N.K.D.A. SURGICAL HISTORY COLONOSCOPY RT CARPEL TUNNEL 2016 LEFT CARPEL TUNNEL 2016 NECK PLATE AND SCREWS MAY 2017 FAMILY HISTORY FATHER: ALIVE, GLAUCOMA, DIAGNOSED WITH HYPERTENSION, OTHER SPECIFIED CONDITIONS INFLUENCING HEALTH STATUS MOTHER: ALIVE, HYPERTHYROID, HYPERTENSION 1 BROTHER(S) - HEALTHY. 2DAUGHTER(S) - HEALTHY. SOCIAL HISTORY GENERAL: TOBACCO USE ARE YOU A:NONSMOKER LATEX QUESTIONNAIRE LATEX ALLERGY : HAVE YOU EVER DEVELOPED ANY TYPE OF REACTION AFTER HANDLING LATEX PRODUCTS SUCH RUBBER GLOVES, CONDOMS, DIAPHRAGMS, BALLOONS, SOCKS, OR UNDERWEAR?NO LATEX ALLERGY : HAVE YOU EVER DEVELOPED ANY TYPE OF REACTION DURING OR AFTER DENTAL APPOINTMENT, VAGINAL/RECTAL EXAMINATION, SURGICAL PROCEDURE, OR ANY OTHER EXPOSURE?NO LATEX RISK : HAVE YOU EVER HAD ANY DIFFICULTY BREATHING OR HIVES AFTER EATING OR HANDLING ANY FRUITS, OR VEGETABLES; SUCH KIWI, BANANAS, STONE FRUITS, OR CHESTNUTSNO LATEX RISK : DO YOU HAVE A PREVIOUS PERSONAL HISTORY OF MORE THAN NINE SURGERIES, SPINA BIFIDA, OR REPEATED CATHERIZATIONS? NO LATEX RISK : ARE YOU FREQUENTLY EXPOSED TO LATEX PRODUCTS IN YOUR OCCUPATION?NO DATE ASKED : 12/02/2019 ALCOHOL SCREENING DID YOU HAVE A DRINK CONTAINING ALCOHOL IN THE PAST YEAR?NO POINTS0 INTERPRETATIONNEGATIVE RECREATIONAL DRUG USE DRUG USE?NO MUSLIM [id number] NONE LANGUAGE LANGUAGES SPOKEN:[place]ONG [place]ER EDUCATION LEVEL OF EDUCATION:HIGH SCHOOL LEARNING BARRIERS / SPECIAL NEEDS BARRIERS TO LEARNING?NO HEARING IMPAIRED?NO VISION IMPAIRED?YES COGNITIVELY IMPAIRED?NO :CORRECTIVE LENSES READINESS TO LEARN?YES LEARNING PREFERENCES?NO LEARNING CAPABILITIES PRESENT?YES EMOTIONAL BARRIERS?NO SPECIAL DEVICES?NO AIRCRAFT MAINTENANCE SUPERVISOR NEEDED?NO DOMESTIC VIOLENCE DO YOU FEEL SAFE IN YOUR ENVIRONMENT?YES PAIN CLINIC PFS, CLERGY, PUBLIC HEALTH REFERRALS PFS REFERRAL NEEDED?NO CLERGY REFERRAL NEEDED?NO PUBLIC HEALTH REFERRAL NEEDED?NO WAS THE PROVIDER NOTIFIED OF ANY PERTINENT INFO? N/A HAS THE PATIENT BEEN EDUCATED REGARDING HIS/HER PLAN OF CARE?YES HAS THE PATIENT BEEN EDUCATED REGARDING PAIN, THE RISK FOR PAIN, THE IMPORTANCE OF EFFECTIVE PAIN MANAGEMENT, AND THE PAIN ASSESSMENT PROCESS?YES ADVANCE DIRECTIVE ADVANCE DIRECTIVE DISCUSSED WITH PATIENT:YES HCP DOUGLAS CONCEPCION [phone] HOSPITALIZATION/MAJOR DIAGNOSTIC PROCEDURE FOOD POISIONING AND ACF ONE WEEK HOSPITALIZATION 12/25/18 REVIEW OF SYSTEMS CONSTITUTIONAL: ANY RECENT FEVER OR ILLNESS NO . CHILLS NO . GASTROENTEROLOGY: BOWEL INCONTINENCE NO . ANY NEW CHANGE IN BOWEL CONTROL? NO . ABDOMINAL PAIN NO . CONSTIPATION NO . GENITOURINARY: ANY NEW CHANGE IN BLADDER CONTROL? NO . URINARY INCONTINENCE NO . CARDIOLOGY: CHEST PRESSURE NO . CHEST PAIN NO . RESPIRATORY: COUGH NO . SHORTNESS OF BREATH NO . EXAMINATION GENERAL EXAMINATION: GENERALNO ACUTE DISTRESS, WELL NOURISHED AND HYDRATED. PSYCHAPPROPRIATE MOOD AND AFFECT , ORIENTED X 3. ASSESSMENTS MYALGIA, OTHER SITE - M79.18 (PRIMARY) TREATMENT MYALGIA, OTHER SITE CLINICAL NOTES: 39-YEAR-OLD MALE IN FOR CHRONIC PAIN FOLLOW-UP. GIVEN PRESENTING SYMPTOMS RECOMMEND FOLLOW-UP IN CLINIC IN 2 WEEKS TO DISCUSS TRIGGER POINT INJECTIONS. PATIENT HAS EXPRESSED UNDERSTANDING OF AND WAS IN AGREEMENT WITH TREATMENT PLAN. GIVEN TIME TO ASK QUESTIONS AND EXPRESS CONCERNS. , ISTOP REGISTRY REVIEWED AND DEMONSTRATES COMPLLIANCE. (REF # [id number] ) BRINGS IN MEDICATIONS WHICH IS APPROPRIATE FOR WHAT WAS DISPENSED. RECENT URINE TOXICOLOGY REVIEWED. NO UNAUTHORIZED MEDICATIONS. NO ILLICIT SUBSTANCES AND PRESCRIBED MEDICATIONS WERE PRESENT. TELEHEALTH VISIT CONDUCTED VIA ZOOM. TIME SPENT WITH PATIENT 5 MINUTES. OTHERS NOTES: VITALS NOT OBTAINED DUE TO VIRTUAL VISIT, PRE-SCREENING COMPLETED,12/02/19, NA. DISPOSITION & COMMUNICATION FOLLOW UP 2 WEEKS (REASON: NECK PAIN) ELECTRONICALLY SIGNED BY JEREMIAH IBARRA ON 12/07/2019 AT 08:10 AM EDT DISCLAIMER : THIS IS A VISIT SUMMARY EXTRACTED FROM THE [employer] CHART. IT IS NOT A COPY OF THE [employer] PROGRESS NOTE. YOLANDAD
== END ==
LOC: M PAIN 09:00
PROVIDERS: ATTEND Family Medicine
DX: M79.18 Myalgia, other site (principal)

== ENCOUNTER → 2020-05-25 | Outpatient (CLI) | payer OTHER ==
--- NOTE | 2020-05-26 23:12 | ECWPNPC ---
PATIENT NAME: NARESH CONCEPCION : 1980 GENDER: MALE VISIT DATE: 05/25/2020 DISCHARGE DATE: 05/25/20 1454 VISIT LOCKED DATE TIME: PHYSICIAN: PHILLIP MOSES RESOURCE: PHILLIP MOSES REASON FOR APPOINTMENT 1. NECK PAIN HISTORY OF PRESENT ILLNESS DEPRESSION SCREENING: PHQ-9 LITTLE INTEREST OR PLEASURE IN DOING THINGSNEARLY EVERY DAY FEELING DOWN, DEPRESSED, OR HOPELESSNOT AT ALL TROUBLE FALLING OR STAYING ASLEEP, OR SLEEPING TOO MUCHNEARLY EVERY DAY FEELING TIRED OR HAVING LITTLE ENERGYNEARLY EVERY DAY POOR APPETITE OR OVEREATING NEARLY EVERY DAY FEELING BAD ABOUT YOURSELF-OR THAT YOU ARE A FAILURE OR HAVE LET YOURSELF OR YOUR FAMILY DOWN NOT AT ALL TROUBLE CONCENTRATING ON THINGS, SUCH READING THE NEWSPAPER OR WATCHING TELEVISION NEARLY EVERY DAY MOVING OR SPEAKING SO SLOWLY THAT OTHER PEOPLE COULD HAVE NOTICED. OR THE OPPOSITE- BEING SO FIDGETY OR RESTLESS THAT YOU HAVE BEEN MOVING AROUND A LOT MORE THAN USUALNOT AT ALL THOUGHTS THAT YOU WOULD BE BETTER OFF , OR OF HURTING YOURSELF IN SOME WAY?NOT AT ALL TOTAL SCORE:15 INTERPRETATIONMODERATELY SEVERE DEPRESSION PHQ-2 (2015 EDITION) LITTLE INTEREST OR PLEASURE IN DOING THINGS?NEARLY EVERY DAY FEELING DOWN, DEPRESSED, OR HOPELESS?NOT AT ALL TOTAL SCORE3 40-YEAR-OLD MALE IN FOR CHRONIC PAIN FOLLOW-UP. HE RATES HIS PAIN CURRENTLY AT A 7 OUT OF 10 AND DESCRIBES IT ACHING. HE FEELS MEDICATIONS ARE HELPFUL HOWEVER THERE ARE TIMES IT DOES NOT COMPLETELY COVER HIS PAIN. HE DENIES MED SIDE EFFECTS AT THIS TIME. GENERAL: -. FALL RISK SCREENING: SCREENING :NO FALLS REPORTED IN THE LAST YEAR PAIN SCREENING: PATIENT HAS A COMPLAINT OF ACUTE OR CHRONIC PAIN :YES LOCATION OF PAIN:HEAD, NECK, LEFT SHOULDER, RIGHT SHOULDER INTENSITY OF PAIN (SCALE OF 1 TO 10):7 WHAT DOES YOUR PAIN FEEL LIKE:ACHING DURATION:CONTINOUS, CONSTANT PAIN IS INCREASED BY:ACTIVITIES PAIN IS DECREASED BY:USE OF PAIN MEDICATIONS, OTHERS HEAT TREATMENT/MEDICATIONS USED TO MANAGE PAIN:OPIOIDS LEVEL OF RELIEF FROM PAIN TREATMENTS IN THE PAST:50% PAIN HAS INTERFERED WITH THE FOLLOWING:BATHING/DRESSING, WALKING ABILITY, HOUSEWORK, SLEEP, TRANSPORTATION, TOILETING NURSING NOTE: -. PAIN CENTER INTAKE QUESTIONS: DO YOU HAVE A HISTORY OF MRSA? :NO DO YOU TAKE A BLOOD THINNERS? :NO DO YOU HAVE ANY BLEEDING DISORDERS? :NO ANY NEW NUMBNESS OR WEAKNESS IN YOUR LEGS OR ARMS? :YES LEGS WEAK ANY PACEMAKER,DEFIBRILLATOR, OR DORSAL COLUMN STIMULATOR? :NO DO YOU HAVE ANY RASHES OR OPEN SORES? :NO ARE YOU ALLERGIC TO IV DYE? :NO ARE YOU DIABETIC? :YES ANY NEW PROBLEMS WITH YOUR MEDICATIONS? :YES PT STATES [facility] WILL ONLY FILL ONE WEEK AT A TIME, TRY TO GET MAIL ORDER HAVE YOU RECEIVED A VACCINE IN THE PAST 30 DAYS? :NO DO YOU PLAN TO RECEIVE A VACCINE IN THE NEXT 21 DAYS? :YES IF SO WHAT VACCINE AND WHEN? ALLERGY INJECTIONS DO YOU NEED ANY PRESCRIPTION? :YES PERCOSET MAIL ORDER DO YOU TAKE ANY IMMUNOSUPPRESSIVE MEDICATIONS? :NO IS THERE A CHANCE YOU COULD BE ? :NO ARE YOU BREAST FEEDING? :NO CURRENT MEDICATIONS TAKING GABAPENTIN 300 MG CAPSULE 1 CAPSULE ORALLY TID TAKING DIVALPROEX SODIUM 125 MG TABLET DELAYED RELEASE 1 TABLET ORALLY DAILY TAKING LISINOPRIL-HYDROCHLOROTHIAZIDE 20-25 MG TABLET 1 TABLET ORALLY ONCE A DAY TAKING METFORMIN HCL 1000 MG TABLET 1 TABLET WITH A MEAL ORALLY BID TAKING METFORMIN HCL 500 MG TABLET 1 TABLET WITH A MEAL ORALLY ONCE A DAY TAKING METOPROLOL TARTRATE 25 MG TABLET 1 TABLET WITH FOOD ORALLY TWICE A DAY TAKING OMEPRAZOLE 20 MG CAPSULE DELAYED RELEASE 1 CAPSULE 30 MINUTES BEFORE MORNING MEAL ORALLY ONCE A DAY TAKING DULOXETINE HCL 60 MG CAPSULE DELAYED RELEASE PARTICLES 1 CAPSULE ORALLY ONCE A DAY TAKING FLONASE ALLERGY RELIEF 50 MCG/ACT SUSPENSION 1 SPRAY IN EACH NOSTRIL NASALLY ONCE A DAY TAKING TRULICITY 0.75 MG/0.5ML SOLUTION PEN-INJECTOR DIRECTED SUBCUTANEOUS TAKING ATORVASTATIN CALCIUM 40 MG TABLET 1 TABLET ORALLY ONCE A DAY TAKING NOVOLOG 100 UNIT/ML SOLUTION DIRECTED SUBCUTANEOUS TAKING BUSPIRONE HCL 7.5 MG TABLET 1 TABLET ORALLY TWICE A DAY TAKING TIZANIDINE HCL 4 MG TABLET 1 TABLET NEEDED ORALLY THREE TIMES A DAY TAKING PERCOCET 10-325 MG TABLET 1 TABLET NEEDED ORALLY EVERY 6 HRS MEDICATION LIST REVIEWED AND RECONCILED WITH THE PATIENT PAST MEDICAL HISTORY DIABETES HTN (HYPERTENSION) NECK PAIN ALLERGIES N.K.D.A. SURGICAL HISTORY COLONOSCOPY RT CARPEL TUNNEL 2016 LEFT CARPEL TUNNEL 2016 NECK PLATE AND SCREWS MAY 2017 FAMILY HISTORY FATHER: ALIVE, GLAUCOMA, DIAGNOSED WITH HYPERTENSION, OTHER SPECIFIED CONDITIONS INFLUENCING HEALTH STATUS MOTHER: ALIVE, HYPERTHYROID, HYPERTENSION 1 BROTHER(S) - HEALTHY. 2DAUGHTER(S) - HEALTHY. SOCIAL HISTORY GENERAL: TOBACCO USE ARE YOU A:NONSMOKER LATEX QUESTIONNAIRE LATEX ALLERGY : HAVE YOU EVER DEVELOPED ANY TYPE OF REACTION AFTER HANDLING LATEX PRODUCTS SUCH RUBBER GLOVES, CONDOMS, DIAPHRAGMS, BALLOONS, SOCKS, OR UNDERWEAR?NO LATEX ALLERGY : HAVE YOU EVER DEVELOPED ANY TYPE OF REACTION DURING OR AFTER DENTAL APPOINTMENT, VAGINAL/RECTAL EXAMINATION, SURGICAL PROCEDURE, OR ANY OTHER EXPOSURE?NO DATE ASKED : 12/02/2019 LATEX RISK : HAVE YOU EVER HAD ANY DIFFICULTY BREATHING OR HIVES AFTER EATING OR HANDLING ANY FRUITS, OR VEGETABLES; SUCH KIWI, BANANAS, STONE FRUITS, OR CHESTNUTSNO LATEX RISK : DO YOU HAVE A PREVIOUS PERSONAL HISTORY OF MORE THAN NINE SURGERIES, SPINA BIFIDA, OR REPEATED CATHERIZATIONS? NO LATEX RISK : ARE YOU FREQUENTLY EXPOSED TO LATEX PRODUCTS IN YOUR OCCUPATION?NO ALCOHOL SCREENING DID YOU HAVE A DRINK CONTAINING ALCOHOL IN THE PAST YEAR?NO POINTS0 INTERPRETATIONNEGATIVE RECREATIONAL DRUG USE DRUG USE?NO PENTECOSTAL [id number] NONE LANGUAGE LANGUAGES SPOKEN:VINCENTIAN EDUCATION LEVEL OF EDUCATION:HIGH SCHOOL LEARNING BARRIERS / SPECIAL NEEDS BARRIERS TO LEARNING?NO HEARING IMPAIRED?NO VISION IMPAIRED?YES COGNITIVELY IMPAIRED?NO :CORRECTIVE LENSES READINESS TO LEARN?YES LEARNING PREFERENCES?NO LEARNING CAPABILITIES PRESENT?YES EMOTIONAL BARRIERS?NO SPECIAL DEVICES?NO ANALYTICAL STATISTICIAN NEEDED?NO DOMESTIC VIOLENCE DO YOU FEEL SAFE IN YOUR ENVIRONMENT?YES PAIN CLINIC PFS, CLERGY, PUBLIC HEALTH REFERRALS PFS REFERRAL NEEDED?NO CLERGY REFERRAL NEEDED?NO PUBLIC HEALTH REFERRAL NEEDED?NO WAS THE PROVIDER NOTIFIED OF ANY PERTINENT INFO? N/A HAS THE PATIENT BEEN EDUCATED REGARDING HIS/HER PLAN OF CARE?YES HAS THE PATIENT BEEN EDUCATED REGARDING PAIN, THE RISK FOR PAIN, THE IMPORTANCE OF EFFECTIVE PAIN MANAGEMENT, AND THE PAIN ASSESSMENT PROCESS?YES ADVANCE DIRECTIVE ADVANCE DIRECTIVE DISCUSSED WITH PATIENT:YES HCP DOUGLAS CONCEPCION [phone] HOSPITALIZATION/MAJOR DIAGNOSTIC PROCEDURE FOOD POISIONING AND ACF ONE WEEK HOSPITALIZATION 12/25/18 REVIEW OF SYSTEMS CONSTITUTIONAL: ANY RECENT FEVER NO . CHILLS NO . WEIGHT CHANGE OF UNKNOWN REASONS NO . GASTROENTEROLOGY: NEW UNEXPLAINABLE CHANGES IN BOWEL CONTROL NO . CONSTIPATION NO . GENITOURINARY: ANY NEW CHANGE IN BLADDER CONTROL? NO . NEUROLOGY: NEW ONSET DIZZINESS OR NEUROLOGICAL CHANGES NOT MENTIONED NO . NEW NUMBNESS OR PAIN PATTERNS NOT MENTIONED AND PERTINENT TO TODAY'S VISIT NO . CARDIOLOGY: NEW CHEST PRESSURE NO . NEW CHEST PAIN NO . RESPIRATORY: UNEXPLAINABLE COUGH NO . NEW SHORTNESS OF BREATH NO . VITAL SIGNS WT 281.6 LBS, HT 68 IN, BMI 42.81 INDEX, BP 135/94 MM HG, HR 111 /MIN, RR 18 /MIN, TEMP 97.5 F, OXYGEN SAT % 96%, SAFE IN ENV? (Y/N) Y, NA INITIALS AW 1406, REVIEWED BY: EM. EXAMINATION GENERAL EXAMINATION: GENERALNO ACUTE DISTRESS, WELL NOURISHED AND HYDRATED. PSYCHAPPROPRIATE MOOD AND AFFECT . LUNGS:CLEAR TO AUSCULTATION BILATERALLY, NO WHEEZES, RHONCHI, RALES. HEART:NO MURMURS, REGULAR RATE AND RHYTHM. 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 GIVEN PRESENTING SYMPTOMS RECOMMEND INCREASING OXYCODONE TO 60 TABS IN ONE MONTH WITH FOLLOW-UP IN 2 MONTHS TO DETERMINE EFFICACY OF TREATMENT. PATIENT HAS EXPRESSED UNDERSTANDING OF AND WAS IN AGREEMENT WITH TREATMENT PLAN. GIVEN TIME TO ASK QUESTIONS AND EXPRESS CONCERNS. , [employer] [facility] REVIEWED AND DEMONSTRATES COMPLLIANCE. (REF # [id number] ) BRINGS IN MEDICATIONS WHICH IS APPROPRIATE FOR WHAT WAS DISPENSED. RECENT URINE TOXICOLOGY REVIEWED. NO UNAUTHORIZED MEDICATIONS. NO ILLICIT SUBSTANCES AND PRESCRIBED MEDICATIONS WERE PRESENT. OTHERS REFILL PERCOCET TABLET, 10-325 MG, 1 TABLET NEEDED, ORALLY, EVERY 12 HRS, 30 DAYS, 60 TABLET(S) PROCEDURE CODES [id number] ESTABILISHED PATIENT [facility] CHARGE DISPOSITION & COMMUNICATION FOLLOW UP 2 MONTHS (REASON: NECK PAIN) ELECTRONICALLY SIGNED BY JEREMIAH IBARRA ON 05/26/2020 AT 09:05 AM EST DISCLAIMER : THIS IS A VISIT SUMMARY EXTRACTED FROM THE [employer] CHART. IT IS NOT A COPY OF THE [employer] PROGRESS NOTE. VINICIO
== END ==
LOC: M PAIN 14:30
PROVIDERS: ATTEND Family Medicine
DX: M47.812 Spondylosis without myelopathy or radiculopathy, cervical region (principal); G89.29 Other chronic pain; E11.9 Type 2 diabetes mellitus without complications; E66.01 Morbid (severe) obesity due to excess calories; Z68.41 Body mass index [BMI] 40.0-44.9, adult; Z79.4 Long term (current) use of insulin; Z79.899 Other long term (current) drug therapy

== ENCOUNTER → 2020-07-21 | Outpatient (CLI) | payer OTHER ==
[~2020-07-21] MED LIST changes: +GABA-282 PO; -GABA-843 PO
--- NOTE | 2020-07-22 06:50 | ECWPNPC ---
PATIENT NAME: NARESH CONCEPCION : 1980 GENDER: MALE VISIT DATE: 07/21/2020 DISCHARGE DATE: 07/21/20 1404 VISIT LOCKED DATE TIME: PHYSICIAN: PHILLIP MOSES RESOURCE: PHILLIP MOSES REASON FOR APPOINTMENT 1. 2 MONTH NECK PAIN HISTORY OF PRESENT ILLNESS GENERAL: -40-YEAR-OLD MALE IN FOR CHRONIC PAIN FOLLOW-UP. HE RATES HIS PAIN CURRENTLY AT A 7 OUT OF 10 AND DESCRIBES IT ACHING. PATIENT FEELS MEDICATIONS ARE HELPFUL AND DENIES MED SIDE EFFECTS THIS TIME. HE DOES ADMIT TO CONTINUED RADICULAR SYMPTOMS HOWEVER. FALL RISK SCREENING: SCREENING :NO FALLS REPORTED IN THE LAST YEAR PAIN SCREENING: PATIENT HAS A COMPLAINT OF ACUTE OR CHRONIC PAIN :YES LOCATION OF PAIN:NECK INTENSITY OF PAIN (SCALE OF 1 TO 10):7 WHAT DOES YOUR PAIN FEEL LIKE:ACHING DURATION:CONTINOUS, CONSTANT, ALL DAY PAIN IS INCREASED BY:ACTIVITIES PAIN IS DECREASED BY:USE OF PAIN MEDICATIONS TREATMENT/MEDICATIONS USED TO MANAGE PAIN:OPIOIDS LEVEL OF RELIEF FROM PAIN TREATMENTS IN THE PAST:25% PAIN HAS INTERFERED WITH THE FOLLOWING:BATHING/DRESSING, WALKING ABILITY, SLEEP NURSING NOTE: -. PAIN CENTER INTAKE QUESTIONS: DO YOU HAVE A HISTORY OF MRSA? :NO DO YOU TAKE A BLOOD THINNERS? :NO DO YOU HAVE ANY BLEEDING DISORDERS? :NO ANY NEW NUMBNESS OR WEAKNESS IN YOUR LEGS OR ARMS? :NO ANY PACEMAKER,DEFIBRILLATOR, OR DORSAL COLUMN STIMULATOR? :NO DO YOU HAVE ANY RASHES OR OPEN SORES? :NO ARE YOU ALLERGIC TO IV DYE? :NO ARE YOU DIABETIC? :YES ANY NEW PROBLEMS WITH YOUR MEDICATIONS? :NO HAVE YOU RECEIVED A VACCINE IN THE PAST 30 DAYS? :YES IF SO WHAT VACCINE AND WHEN? ALLERGY INJECTIONS DO YOU PLAN TO RECEIVE A VACCINE IN THE NEXT 21 DAYS? :YES IF SO WHAT VACCINE AND WHEN? ALLERGY INJECTIONS DO YOU NEED ANY PRESCRIPTION? :NO DO YOU TAKE ANY IMMUNOSUPPRESSIVE MEDICATIONS? :NO IS THERE A CHANCE YOU COULD BE ? :NO ARE YOU BREAST FEEDING? :NO CURRENT MEDICATIONS TAKING DIVALPROEX SODIUM 125 MG TABLET DELAYED RELEASE 1 TABLET ORALLY DAILY TAKING LISINOPRIL-HYDROCHLOROTHIAZIDE 20-25 MG TABLET 1 TABLET ORALLY ONCE A DAY TAKING METFORMIN HCL 1000 MG TABLET 1 TABLET WITH A MEAL ORALLY BID TAKING METFORMIN HCL 500 MG TABLET 1 TABLET WITH A MEAL ORALLY ONCE A DAY TAKING OMEPRAZOLE 20 MG CAPSULE DELAYED RELEASE 1 CAPSULE 30 MINUTES BEFORE MORNING MEAL ORALLY ONCE A DAY TAKING DULOXETINE HCL 60 MG CAPSULE DELAYED RELEASE PARTICLES 1 CAPSULE ORALLY ONCE A DAY TAKING FLONASE ALLERGY RELIEF 50 MCG/ACT SUSPENSION 1 SPRAY IN EACH NOSTRIL NASALLY ONCE A DAY TAKING TRULICITY 0.75 MG/0.5ML SOLUTION PEN-INJECTOR DIRECTED SUBCUTANEOUS TAKING ATORVASTATIN CALCIUM 40 MG TABLET 1 TABLET ORALLY ONCE A DAY TAKING NOVOLOG 100 UNIT/ML SOLUTION DIRECTED SUBCUTANEOUS TAKING BUSPIRONE HCL 7.5 MG TABLET 1 TABLET ORALLY TWICE A DAY TAKING TIZANIDINE HCL 4 MG TABLET 1 TABLET NEEDED ORALLY THREE TIMES A DAY TAKING PERCOCET 10-325 MG TABLET 1 TABLET NEEDED ORALLY EVERY 12 HRS NOT-TAKING GABAPENTIN 300 MG CAPSULE 1 CAPSULE ORALLY TID NOT-TAKING METOPROLOL TARTRATE 25 MG TABLET 1 TABLET WITH FOOD ORALLY TWICE A DAY MEDICATION LIST REVIEWED AND RECONCILED WITH THE PATIENT PAST MEDICAL HISTORY DIABETES HTN (HYPERTENSION) NECK PAIN ALLERGIES N.K.D.A. SOCIAL HISTORY GENERAL: TOBACCO USE ARE YOU A:NONSMOKER LATEX QUESTIONNAIRE LATEX ALLERGY : HAVE YOU EVER DEVELOPED ANY TYPE OF REACTION AFTER HANDLING LATEX PRODUCTS SUCH RUBBER GLOVES, CONDOMS, DIAPHRAGMS, BALLOONS, SOCKS, OR UNDERWEAR?NO LATEX ALLERGY : HAVE YOU EVER DEVELOPED ANY TYPE OF REACTION DURING OR AFTER DENTAL APPOINTMENT, VAGINAL/RECTAL EXAMINATION, SURGICAL PROCEDURE, OR ANY OTHER EXPOSURE?NO LATEX RISK : HAVE YOU EVER HAD ANY DIFFICULTY BREATHING OR HIVES AFTER EATING OR HANDLING ANY FRUITS, OR VEGETABLES; SUCH KIWI, BANANAS, STONE FRUITS, OR CHESTNUTSNO LATEX RISK : DO YOU HAVE A PREVIOUS PERSONAL HISTORY OF MORE THAN NINE SURGERIES, SPINA BIFIDA, OR REPEATED CATHERIZATIONS? NO LATEX RISK : ARE YOU FREQUENTLY EXPOSED TO LATEX PRODUCTS IN YOUR OCCUPATION?NO DATE ASKED : 07/21/2020 ALCOHOL USE: NO. ALCOHOL SCREENING DID YOU HAVE A DRINK CONTAINING ALCOHOL IN THE PAST YEAR?NO POINTS0 INTERPRETATIONNEGATIVE RECREATIONAL DRUG USE DRUG USE?NO SCIENTOLOGY [id number] NONE LANGUAGE LANGUAGES SPOKEN:KAZAKH EDUCATION LEVEL OF EDUCATION:HIGH SCHOOL LEARNING BARRIERS / SPECIAL NEEDS CHANGE FROM LAST VISIT?NO BARRIERS TO LEARNING?NO HEARING IMPAIRED?NO VISION IMPAIRED?YES :CORRECTIVE LENSES COGNITIVELY IMPAIRED?NO READINESS TO LEARN?YES LEARNING PREFERENCES?NO LEARNING CAPABILITIES PRESENT?YES EMOTIONAL BARRIERS?NO SPECIAL DEVICES?NO BENCH GRINDER NEEDED?NO DOMESTIC VIOLENCE DO YOU FEEL SAFE IN YOUR ENVIRONMENT?YES - PFS REFERRAL NEEDED?NO CLERGY REFERRAL NEEDED?NO PUBLIC HEALTH REFERRAL NEEDED?NO WAS THE PROVIDER NOTIFIED OF ANY PERTINENT INFO? N/A HAS THE PATIENT BEEN EDUCATED REGARDING HIS/HER PLAN OF CARE?YES HAS THE PATIENT BEEN EDUCATED REGARDING PAIN, THE RISK FOR PAIN, THE IMPORTANCE OF EFFECTIVE PAIN MANAGEMENT, AND THE PAIN ASSESSMENT PROCESS?YES ADVANCE DIRECTIVE ADVANCE DIRECTIVE DISCUSSED WITH PATIENT:YES HCP DOUGLAS CONCEPCION [phone] REVIEW OF SYSTEMS CONSTITUTIONAL: ANY RECENT FEVER NO . CHILLS NO . WEIGHT CHANGE OF UNKNOWN REASONS NO . GASTROENTEROLOGY: NEW UNEXPLAINABLE CHANGES IN BOWEL CONTROL NO . CONSTIPATION NO . GENITOURINARY: ANY NEW CHANGE IN BLADDER CONTROL? NO . NEUROLOGY: NEW ONSET DIZZINESS OR NEUROLOGICAL CHANGES NOT MENTIONED NO . NEW NUMBNESS OR PAIN PATTERNS NOT MENTIONED AND PERTINENT TO TODAY'S VISIT NO . CARDIOLOGY: NEW CHEST PRESSURE NO . NEW CHEST PAIN NO . RESPIRATORY: UNEXPLAINABLE COUGH NO . NEW SHORTNESS OF BREATH NO . VITAL SIGNS WT 276 LBS, HT 68 IN, BMI 41.96 INDEX, BP 124/77 MM HG, HR 105 /MIN, RR 18 /MIN, TEMP 94.8 F, OXYGEN SAT % 97, SAFE IN ENV? (Y/N) YEST.ALICIA BARBOUR. EXAMINATION GENERAL EXAMINATION: GENERALNO ACUTE DISTRESS, WELL NOURISHED AND HYDRATED. PSYCHAPPROPRIATE MOOD AND AFFECT . LUNGS:CLEAR TO AUSCULTATION BILATERALLY, NO WHEEZES, RHONCHI, RALES. HEART:NO MURMURS, REGULAR RATE AND RHYTHM. ASSESSMENTS CERVICAL DISC DISORDER AT C5-C6 LEVEL WITH RADICULOPATHY - M50.122 (PRIMARY), RISK: (NULL) TREATMENT CERVICAL DISC DISORDER AT C5-C6 LEVEL WITH RADICULOPATHY CONTINUE TIZANIDINE HCL TABLET, 4 MG, 1 TABLET NEEDED, ORALLY, THREE TIMES A DAY, 30 DAYS, 90 REFILL PERCOCET TABLET, 10-325 MG, 1 TABLET NEEDED, ORALLY, EVERY 12 HRS, 30 DAYS, 60 TABLET(S) START LYRICA CAPSULE, 75 MG, 1 CAPSULE, ORALLY, TWICE DAILY, 30 DAY(S), 60, REFILLS 1 NOTES: 40-YEAR-OLD MALE IN FOR CHRONIC PAIN FOLLOW-UP. GIVEN PRESENTING SYMPTOMS RECOMMENDED STARTING LYRICA 75 MG TWICE A DAY WITH FOLLOW-UP IN 2 MONTHS TO DETERMINE EFFICACY OF TREATMENT. PATIENT HAS EXPRESSED UNDERSTANDING OF AND WAS IN AGREEMENT WITH TREATMENT PLAN. GIVEN TIME TO ASK QUESTIONS AND EXPRESS CONCERNS. , ISTOP REGISTRY REVIEWED AND DEMONSTRATES COMPLLIANCE. (REF # [id number] ) BRINGS IN MEDICATIONS WHICH IS APPROPRIATE FOR WHAT WAS DISPENSED. RECENT URINE TOXICOLOGY REVIEWED. NO UNAUTHORIZED MEDICATIONS. NO ILLICIT SUBSTANCES AND PRESCRIBED MEDICATIONS WERE PRESENT. PRINTED INFORMATION ON NEW MEDICATION FOR PATIENT DEVIN BARBOUR. PROCEDURE CODES FA211 ESTABILISHED PATIENT [facility] CHARGE DISPOSITION & COMMUNICATION FOLLOW UP 2 MONTHS (REASON: NECK PAIN NEW MED) ELECTRONICALLY SIGNED BY JEREMIAH IBARRA ON 07/21/2020 AT 03:09 PM EST DISCLAIMER : THIS IS A VISIT SUMMARY EXTRACTED FROM THE [employer] CHART. IT IS NOT A COPY OF THE [employer] PROGRESS NOTE. YOLANDAD
== END ==
LOC: M PAIN 13:15
PROVIDERS: ATTEND Family Medicine
DX: M50.122 Cervical disc disorder at C5-C6 level with radiculopathy (principal); E11.9 Type 2 diabetes mellitus without complications; I10 Essential (primary) hypertension; Z79.4 Long term (current) use of insulin; Z79.891 Long term (current) use of opiate analgesic; Z79.899 Other long term (current) drug therapy

== ENCOUNTER → 2020-10-03 | Outpatient (CLI) | payer OTHER ==
--- NOTE | 2020-10-05 00:30 | ECWPNPC ---
PATIENT NAME: NARESH CONCEPCION : 1980 GENDER: MALE VISIT DATE: 10/03/2020 DISCHARGE DATE: 10/03/20 1050 VISIT LOCKED DATE TIME: PHYSICIAN: PHILLIP MOSES RESOURCE: PHILLIP MOSES REASON FOR APPOINTMENT 1. NECK PAIN NEW MED HISTORY OF PRESENT ILLNESS GENERAL: - 40-YEAR-OLD MALE IN FOR CHRONIC PAIN FOLLOW-UP. HE RATES HIS PAIN CURRENTLY AT A 4/10 AND DESCRIBES IT CONTINUOUS AND THROBBING. PATIENT WAS STARTED ON LYRICA AT LAST CLINIC VISIT AND HE ADMITS TODAY THAT THIS HAS BEEN BENEFICIAL. FALL RISK SCREENING: SCREENING : NO FALLS REPORTED IN THE LAST YEAR. PAIN SCREENING: PATIENT HAS A COMPLAINT OF ACUTE OR CHRONIC PAIN :YES LOCATION OF PAIN:NECK INTENSITY OF PAIN (SCALE OF 1 TO 10):4 WHAT DOES YOUR PAIN FEEL LIKE:CONTINOUS, THROBBING DURATION:CONTINOUS, AWAKENS FROM SLEEP PAIN IS INCREASED BY:ACTIVITIES, PROLONGED STANDING PAIN IS DECREASED BY:USE OF PAIN MEDICATIONS, OTHERS LAYING DOWN NURSING NOTE: -. PAIN CENTER INTAKE QUESTIONS: DO YOU HAVE A HISTORY OF MRSA? :NO DO YOU TAKE A BLOOD THINNERS? :NO DO YOU HAVE ANY BLEEDING DISORDERS? :NO ANY NEW NUMBNESS OR WEAKNESS IN YOUR LEGS OR ARMS? :NO ANY PACEMAKER,DEFIBRILLATOR, OR DORSAL COLUMN STIMULATOR? :NO DO YOU HAVE ANY RASHES OR OPEN SORES? :NO ARE YOU ALLERGIC TO IV DYE? :NO ARE YOU DIABETIC? :YES ANY NEW PROBLEMS WITH YOUR MEDICATIONS? :NO HAVE YOU RECEIVED A VACCINE IN THE PAST 30 DAYS? :YES IF SO WHAT VACCINE AND WHEN? IMMUNOTHERAPY EVERY THREE WEEKS DO YOU PLAN TO RECEIVE A VACCINE IN THE NEXT 21 DAYS? :YES IF SO WHAT VACCINE AND WHEN? IMMUNOTHERAPY DO YOU NEED ANY PRESCRIPTION? :NO DO YOU TAKE ANY IMMUNOSUPPRESSIVE MEDICATIONS? :NO DO YOU HAVE ANY KIDNEY OR LIVER DISEASE? :NO IS THERE A CHANCE YOU COULD BE ? :NO ARE YOU BREAST FEEDING? :NO CURRENT MEDICATIONS TAKING DIVALPROEX SODIUM 125 MG TABLET DELAYED RELEASE 1 TABLET ORALLY DAILY TAKING LISINOPRIL-HYDROCHLOROTHIAZIDE 20-25 MG TABLET 1 TABLET ORALLY ONCE A DAY TAKING METFORMIN HCL 1000 MG TABLET 1 TABLET WITH A MEAL ORALLY BID TAKING METFORMIN HCL 500 MG TABLET 1 TABLET WITH A MEAL ORALLY ONCE A DAY TAKING OMEPRAZOLE 20 MG CAPSULE DELAYED RELEASE 1 CAPSULE 30 MINUTES BEFORE MORNING MEAL ORALLY ONCE A DAY TAKING DULOXETINE HCL 60 MG CAPSULE DELAYED RELEASE PARTICLES 1 CAPSULE ORALLY ONCE A DAY TAKING FLONASE ALLERGY RELIEF 50 MCG/ACT SUSPENSION 1 SPRAY IN EACH NOSTRIL NASALLY ONCE A DAY TAKING TRULICITY 0.75 MG/0.5ML SOLUTION PEN-INJECTOR DIRECTED SUBCUTANEOUS TAKING ATORVASTATIN CALCIUM 40 MG TABLET 1 TABLET ORALLY ONCE A DAY TAKING NOVOLOG 100 UNIT/ML SOLUTION DIRECTED SUBCUTANEOUS TAKING BUSPIRONE HCL 7.5 MG TABLET 1 TABLET ORALLY TWICE A DAY TAKING LYRICA 75 MG CAPSULE 1 CAPSULE ORALLY TWICE DAILY TAKING PERCOCET 10-325 MG TABLET 1 TABLET NEEDED ORALLY EVERY 12 HRS TAKING TIZANIDINE HCL 4 MG TABLET 1 TABLET NEEDED ORALLY THREE TIMES A DAY TAKING MUCINEX 600 MG TABLET EXTENDED RELEASE 12 HOUR 1 TABLET NEEDED ORALLY EVERY 12 HRS UNKNOWN GABAPENTIN 300 MG CAPSULE 1 CAPSULE ORALLY TID UNKNOWN METOPROLOL TARTRATE 25 MG TABLET 1 TABLET WITH FOOD ORALLY TWICE A DAY MEDICATION LIST REVIEWED AND RECONCILED WITH THE PATIENT PAST MEDICAL HISTORY DIABETES HTN (HYPERTENSION) NECK PAIN ALLERGIES ENVIRONMENTAL: CONGESTION SURGICAL HISTORY COLONOSCOPY RT CARPEL TUNNEL 2016 LEFT CARPEL TUNNEL 2017 NECK PLATE AND SCREWS MAY 2017 HOSPITALIZATION/MAJOR DIAGNOSTIC PROCEDURE FOOD POISIONING AND ACF ONE WEEK HOSPITALIZATION 12/25/18 REVIEW OF SYSTEMS CONSTITUTIONAL: ANY RECENT FEVER NO . CHILLS NO . WEIGHT CHANGE OF UNKNOWN REASONS NO . GASTROENTEROLOGY: NEW UNEXPLAINABLE CHANGES IN BOWEL CONTROL NO . CONSTIPATION NO . GENITOURINARY: ANY NEW CHANGE IN BLADDER CONTROL? NO . NEUROLOGY: NEW ONSET DIZZINESS OR NEUROLOGICAL CHANGES NOT MENTIONED NO . NEW NUMBNESS OR PAIN PATTERNS NOT MENTIONED AND PERTINENT TO TODAY'S VISIT NO . CARDIOLOGY: NEW CHEST PRESSURE NO . PATIENT DENIES NO . RESPIRATORY: UNEXPLAINABLE COUGH NO . NEW SHORTNESS OF BREATH NO . VITAL SIGNS WT 262.0 LBS, HT 68 IN, BMI 39.83 INDEX, BP 144/84 MM HG, HR 104 /MIN, RR 18 /MIN, TEMP 96.1 F, OXYGEN SAT % 96%, SAFE IN ENV? (Y/N) YES, NA INITIALS AW 1029, REVIEWED BY: CARMEN QUINN MA. EXAMINATION GENERAL EXAMINATION: GENERALNO ACUTE DISTRESS, WELL NOURISHED AND HYDRATED. PSYCHAPPROPRIATE MOOD AND AFFECT . LUNGS:CLEAR TO AUSCULTATION BILATERALLY, NO WHEEZES, RHONCHI, RALES. HEART:NO MURMURS, REGULAR RATE AND RHYTHM. ASSESSMENTS CERVICAL DISC DISORDER AT C5-C6 LEVEL WITH RADICULOPATHY - M50.122 TREATMENT CERVICAL DISC DISORDER AT C5-C6 LEVEL WITH RADICULOPATHY REFILL LYRICA CAPSULE, 75 MG, 1 CAPSULE, ORALLY, TWICE DAILY, 30 DAY(S), 60, REFILLS 2 NOTES: 40-YEAR-OLD MALE IN FOR CHRONIC PAIN FOLLOW-UP. GIVEN PRESENTING SYMPTOMS RECOMMENDED CONTINUATION OF CURRENT MEDICATION REGIMEN WITH FOLLOW-UP IN 3 MONTHS. PATIENT HAS EXPRESSED UNDERSTANDING OF AND WAS IN AGREEMENT WITH TREATMENT PLAN. GIVEN TIME TO ASK QUESTIONS AND EXPRESS CONCERNS. , ISTOP REGISTRY REVIEWED AND DEMONSTRATES COMPLLIANCE. (REF # [id number] ) BRINGS IN MEDICATIONS WHICH IS APPROPRIATE FOR WHAT WAS DISPENSED. RECENT URINE TOXICOLOGY REVIEWED. NO UNAUTHORIZED MEDICATIONS. NO ILLICIT SUBSTANCES AND PRESCRIBED MEDICATIONS WERE PRESENT. PROCEDURE CODES FA211 ESTABILISHED PATIENT [facility] CHARGE DISPOSITION & COMMUNICATION FOLLOW UP 3 MONTHS (REASON: NECK PAIN ) ELECTRONICALLY SIGNED BY JEREMIAH IBARRA ON 10/04/2020 AT 08:39 AM EDT DISCLAIMER : THIS IS A VISIT SUMMARY EXTRACTED FROM THE [employer] CHART. IT IS NOT A COPY OF THE [employer] PROGRESS NOTE. YOLANDAD
== END ==
LOC: M PAIN 10:30
PROVIDERS: ATTEND Family Medicine
DX: M50.122 Cervical disc disorder at C5-C6 level with radiculopathy (principal); E11.9 Type 2 diabetes mellitus without complications; I10 Essential (primary) hypertension; J30.9 Allergic rhinitis, unspecified; Z79.891 Long term (current) use of opiate analgesic; Z79.4 Long term (current) use of insulin; Z79.899 Other long term (current) drug therapy

== ENCOUNTER → 2020-12-28 | Outpatient (CLI) | payer OTHER ==
[~2020-12-28] MED LIST changes: -OXYC1TAB15 PO; +OXYC7.5T3 PO
--- NOTE | 2020-12-30 04:39 | ECWPNPC ---
PATIENT NAME: NARESH CONCEPCION : 1980 GENDER: MALE VISIT DATE: 12/28/2020 DISCHARGE DATE: 12/28/20 1531 VISIT LOCKED DATE TIME: PHYSICIAN: PHILLIP MOSES RESOURCE: PHILLIP MOSES REASON FOR APPOINTMENT 1. NECK PAIN HISTORY OF PRESENT ILLNESS DEPRESSION SCREENING: PHQ-2 (2015 EDITION) LITTLE INTEREST OR PLEASURE IN DOING THINGS?NOT AT ALL FEELING DOWN, DEPRESSED, OR HOPELESS?NOT AT ALL TOTAL SCORE0 GENERAL: HPI 40-YEAR-OLD MALE IN FOR CHRONIC PAIN FOLLOW-UP. HE RATES HIS PAIN CURRENTLY AT A 5 OUT OF 10 AND DESCRIBES IT ACHING AND CONTINUOUS. HE FEELS HIS MEDICATIONS ARE HELPFUL AND DENIES MED SIDE EFFECTS AT THIS TIME. WHEN PATIENT WAS SEEN PREVIOUSLY A WORKMEN'S COMP. PATIENT HE WAS BEING SEEN BY NEUROLOGY FOR COMPLAINTS OF NERVE PAIN IN HIS HEAD HOWEVER WORKMEN'S COMP. STOPPED COVERING NEUROLOGY FOR THE PATIENT. SINCE THAT TIME PATIENT HAS SWITCHED TO HYACINTH AND WOULD LIKE REFERRAL BACK TO NEUROLOGY TO DISCUSS THIS.. -. FALL RISK SCREENING: SCREENING : NO FALLS REPORTED IN THE LAST YEAR. PAIN SCREENING: PATIENT HAS A COMPLAINT OF ACUTE OR CHRONIC PAIN :YES LOCATION OF PAIN:HEAD, NECK, LEFT SHOULDER, RIGHT SHOULDER INTENSITY OF PAIN (SCALE OF 1 TO 10):5 WHAT DOES YOUR PAIN FEEL LIKE:ACHING, CONTINOUS DURATION:CONTINOUS PAIN IS INCREASED BY:ACTIVITIES PAIN IS DECREASED BY:USE OF PAIN MEDICATIONS, OTHERS HEAT AND ICE NURSING NOTE: -. PAIN CENTER INTAKE QUESTIONS: DO YOU HAVE A HISTORY OF MRSA? :NO DO YOU TAKE A BLOOD THINNERS? :NO DO YOU HAVE ANY BLEEDING DISORDERS? :NO ANY NEW NUMBNESS OR WEAKNESS IN YOUR LEGS OR ARMS? :NO ANY PACEMAKER,DEFIBRILLATOR, OR DORSAL COLUMN STIMULATOR? :NO DO YOU HAVE ANY RASHES OR OPEN SORES? :NO ARE YOU ALLERGIC TO IV DYE? :NO ARE YOU DIABETIC? :YES ANY NEW PROBLEMS WITH YOUR MEDICATIONS? :NO HAVE YOU RECEIVED A VACCINE IN THE PAST 30 DAYS? :NO DO YOU PLAN TO RECEIVE A VACCINE IN THE NEXT 21 DAYS? :NO DO YOU NEED ANY PRESCRIPTION? :NO DO YOU TAKE ANY IMMUNOSUPPRESSIVE MEDICATIONS? :NO DO YOU HAVE ANY KIDNEY OR LIVER DISEASE? :NO IS THERE A CHANCE YOU COULD BE ? :NO ARE YOU BREAST FEEDING? :NO CURRENT MEDICATIONS TAKING DIVALPROEX SODIUM 125 MG TABLET DELAYED RELEASE 1 TABLET ORALLY DAILY TAKING LISINOPRIL-HYDROCHLOROTHIAZIDE 20-25 MG TABLET 1 TABLET ORALLY ONCE A DAY TAKING METFORMIN HCL 1000 MG TABLET 1 TABLET WITH A MEAL ORALLY BID TAKING METFORMIN HCL 500 MG TABLET 1 TABLET WITH A MEAL ORALLY ONCE A DAY TAKING OMEPRAZOLE 20 MG CAPSULE DELAYED RELEASE 1 CAPSULE 30 MINUTES BEFORE MORNING MEAL ORALLY ONCE A DAY TAKING DULOXETINE HCL 60 MG CAPSULE DELAYED RELEASE PARTICLES 1 CAPSULE ORALLY ONCE A DAY TAKING FLONASE ALLERGY RELIEF 50 MCG/ACT SUSPENSION 1 SPRAY IN EACH NOSTRIL NASALLY ONCE A DAY TAKING TRULICITY 0.75 MG/0.5ML SOLUTION PEN-INJECTOR DIRECTED SUBCUTANEOUS TAKING ATORVASTATIN CALCIUM 40 MG TABLET 1 TABLET ORALLY ONCE A DAY TAKING NOVOLOG 100 UNIT/ML SOLUTION DIRECTED SUBCUTANEOUS TAKING BUSPIRONE HCL 7.5 MG TABLET 1 TABLET ORALLY TWICE A DAY TAKING MUCINEX 600 MG TABLET EXTENDED RELEASE 12 HOUR 1 TABLET NEEDED ORALLY EVERY 12 HRS TAKING LYRICA 75 MG CAPSULE 1 CAPSULE ORALLY TWICE DAILY TAKING TIZANIDINE HCL 4 MG TABLET 1 TABLET NEEDED ORALLY THREE TIMES A DAY TAKING PERCOCET 10-325 MG TABLET 1 TABLET NEEDED ORALLY EVERY 12 HRS NOT-TAKING GABAPENTIN 300 MG CAPSULE 1 CAPSULE ORALLY TID NOT-TAKING METOPROLOL TARTRATE 25 MG TABLET 1 TABLET WITH FOOD ORALLY TWICE A DAY MEDICATION LIST REVIEWED AND RECONCILED WITH THE PATIENT PAST MEDICAL HISTORY DIABETES HTN (HYPERTENSION) NECK PAIN ALLERGIES ENVIRONMENTAL: CONGESTION SOCIAL HISTORY GENERAL: TOBACCO USE ARE YOU A:NONSMOKER LATEX QUESTIONNAIRE LATEX ALLERGY : HAVE YOU EVER DEVELOPED ANY TYPE OF REACTION AFTER HANDLING LATEX PRODUCTS SUCH RUBBER GLOVES, CONDOMS, DIAPHRAGMS, BALLOONS, SOCKS, OR UNDERWEAR?NO LATEX ALLERGY : HAVE YOU EVER DEVELOPED ANY TYPE OF REACTION DURING OR AFTER DENTAL APPOINTMENT, VAGINAL/RECTAL EXAMINATION, SURGICAL PROCEDURE, OR ANY OTHER EXPOSURE?NO LATEX RISK : HAVE YOU EVER HAD ANY DIFFICULTY BREATHING OR HIVES AFTER EATING OR HANDLING ANY FRUITS, OR VEGETABLES; SUCH KIWI, BANANAS, STONE FRUITS, OR CHESTNUTSNO LATEX RISK : DO YOU HAVE A PREVIOUS PERSONAL HISTORY OF MORE THAN NINE SURGERIES, SPINA BIFIDA, OR REPEATED CATHERIZATIONS? NO LATEX RISK : ARE YOU FREQUENTLY EXPOSED TO LATEX PRODUCTS IN YOUR OCCUPATION?NO DATE ASKED : 12/28/2020 ALCOHOL USE: NO. ALCOHOL SCREENING DID YOU HAVE A DRINK CONTAINING ALCOHOL IN THE PAST YEAR?NO POINTS0 INTERPRETATIONNEGATIVE RECREATIONAL DRUG USE DRUG USE?NO JEW [id number] NONE LANGUAGE LANGUAGES SPOKEN:[place]ATARI EDUCATION LEVEL OF EDUCATION:HIGH SCHOOL LEARNING BARRIERS / SPECIAL NEEDS CHANGE FROM LAST VISIT?NO BARRIERS TO LEARNING?NO HEARING IMPAIRED?NO VISION IMPAIRED?YES COGNITIVELY IMPAIRED?NO :CORRECTIVE LENSES READINESS TO LEARN?YES LEARNING PREFERENCES?NO LEARNING CAPABILITIES PRESENT?YES EMOTIONAL BARRIERS?NO SPECIAL DEVICES?NO DATABASE ADMINISTRATION PROJECT MANAGER NEEDED?NO DOMESTIC VIOLENCE DO YOU FEEL SAFE IN YOUR ENVIRONMENT?YES - PFS REFERRAL NEEDED?NO CLERGY REFERRAL NEEDED?NO PUBLIC HEALTH REFERRAL NEEDED?NO WAS THE PROVIDER NOTIFIED OF ANY PERTINENT INFO? N/A HAS THE PATIENT BEEN EDUCATED REGARDING HIS/HER PLAN OF CARE?YES HAS THE PATIENT BEEN EDUCATED REGARDING PAIN, THE RISK FOR PAIN, THE IMPORTANCE OF EFFECTIVE PAIN MANAGEMENT, AND THE PAIN ASSESSMENT PROCESS?YES ADVANCE DIRECTIVE ADVANCE DIRECTIVE DISCUSSED WITH PATIENT:YES HCP DOUGLAS CONCEPCION [phone] REVIEW OF SYSTEMS CONSTITUTIONAL: ANY RECENT FEVER NO . CHILLS NO . WEIGHT CHANGE OF UNKNOWN REASONS NO . GASTROENTEROLOGY: NEW UNEXPLAINABLE CHANGES IN BOWEL CONTROL NO . CONSTIPATION NO . GENITOURINARY: ANY NEW CHANGE IN BLADDER CONTROL? NO . NEUROLOGY: NEW ONSET DIZZINESS OR NEUROLOGICAL CHANGES NOT MENTIONED NO . NEW NUMBNESS OR PAIN PATTERNS NOT MENTIONED AND PERTINENT TO TODAY'S VISIT NO . CARDIOLOGY: NEW CHEST PRESSURE NO . PATIENT DENIES NO . RESPIRATORY: UNEXPLAINABLE COUGH NO . NEW SHORTNESS OF BREATH NO . VITAL SIGNS WT 262.0 LBS, HT 68 IN, BMI 39.83 INDEX, BP 146/87 MM HG, REPEAT BP 142/82 MANUAL, HR 100 /MIN, RR 18 /MIN, TEMP 95.9 F, OXYGEN SAT % 100%, SAFE IN ENV? (Y/N) YES, REVIEWED BY: Alex MCGUIRE RN. EXAMINATION GENERAL EXAMINATION: GENERALNO ACUTE DISTRESS, WELL NOURISHED AND HYDRATED. PSYCHAPPROPRIATE MOOD AND AFFECT . LUNGS:CLEAR TO AUSCULTATION BILATERALLY, NO WHEEZES, RHONCHI, RALES. HEART:NO MURMURS, REGULAR RATE AND RHYTHM. ASSESSMENTS SPONDYLOSIS OF CERVICAL REGION WITHOUT MYELOPATHY OR RADICULOPATHY - M47.812 (PRIMARY), RISK: (NULL) USE OF OPIATES FOR THERAPEUTIC PURPOSES - Z79.891 TREATMENT SPONDYLOSIS OF CERVICAL REGION WITHOUT MYELOPATHY OR RADICULOPATHY NOTES: 40-YEAR-OLD MALE IN FOR CHRONIC PAIN FOLLOW-UP. GIVEN PRESENTING SYMPTOMS RECOMMEND CONTINUATION OF CURRENT MEDICATION REGIMEN WITH FOLLOW-UP IN 3 MONTHS. THIS POLE FRAMER MACHINE WILL PLACE REFERRAL FOR NEUROLOGY TO DISCUSS PATIENT'S NEURALGIA. PATIENT HAS EXPRESSED UNDERSTANDING OF AND WAS IN AGREEMENT WITH TREATMENT PLAN. GIVEN TIME TO ASK QUESTIONS AND EXPRESS CONCERNS. ISTOP REGISTRY REVIEWED AND DEMONSTRATES COMPLLIANCE. (REF # [id number] ) BRINGS IN MEDICATIONS WHICH IS APPROPRIATE FOR WHAT WAS DISPENSED. RECENT URINE TOXICOLOGY REVIEWED. NO UNAUTHORIZED MEDICATIONS. NO ILLICIT SUBSTANCES AND PRESCRIBED MEDICATIONS WERE PRESENT. REFERRAL TO:[facility]NEUROLOGICAL SURGERY REASON:NEURALGIA LABS LAB: URINE TEST GROUP [facility] 12/28/2020 3:26:18 PM > PERCOCET LAST DOSE 12/28/2020 PROCEDURE CODES FA211 ESTABILISHED PATIENT [facility] CHARGE DISPOSITION & COMMUNICATION FOLLOW UP 3 MONTHS (REASON: NECK PAIN ) ELECTRONICALLY SIGNED BY JEREMIAH IBARRA ON 12/29/2020 AT 12:55 PM EDT DISCLAIMER : THIS IS A VISIT SUMMARY EXTRACTED FROM THE [employer] CHART. IT IS NOT A COPY OF THE [employer] PROGRESS NOTE. MTDD
== END ==
LOC: M PAIN 14:45
PROVIDERS: ATTEND Family Medicine
DX: M47.812 Spondylosis without myelopathy or radiculopathy, cervical region (principal); G89.29 Other chronic pain; E11.9 Type 2 diabetes mellitus without complications; Z79.4 Long term (current) use of insulin; Z79.899 Other long term (current) drug therapy

== ENCOUNTER → 2021-06-14 | Outpatient (REF) | payer OTHER ==
[~2021-06-14] MED LIST changes: -VERA240T3 PO; +VERA240T64 PO
[2021-06-14 17:59] LABS: CREATININE, URINE 67.4 MG/DL; MALB URINE SIEMENS 8.8 MG/L
== END ==
LOC: M LAB REF 16:39
PROVIDERS: ATTEND Nurse Practitioner Family
DX: E11.65 Type 2 diabetes mellitus with hyperglycemia (principal)

== ENCOUNTER 2025-02-14 15:41 | Emergency (ER) | payer OTHER, SELFPAY ==
[~2025-02-14] VITALS: Ht 172.7 cm; Wt 118.5 kg
[~2025-02-14 15:41] MED LIST changes: +GABA-1172 PO; +GABA-1490 PO; -GABA-282 PO; -GABA600T4 PO; -LISI20TA20 PO; +LISI20TA37 PO; -NICO1PAT15; +NICO21DI31; +OMEP-173 PO; -OMEP-218 PO
[2025-02-14 16:36] LABS: BASO # 0.1 10^3/uL (0.0-0.2); BASO % 0.7 % (0.0-1.0); EOS # 0.4 10^3/uL (0.0-0.5); EOS % 3.7 % (0.0-3.0); LYMPH # 5.2 10^3/uL (1.5-5.0); LYMPH % 44.7 % (24.0-44.0); MONO # 0.5 10^3/uL (0.0-0.8); MONO % 4.4 % (2.0-8.0); NEUTROPHILS # 5.4 10^3/uL (1.5-8.5); NEUTROPHILS % 46.1 % (36.0-66.0); PLATELET COUNT, AUTOMATED 329 10^3/uL (150-450)
[2025-02-14 16:52] LABS: ETHYL ALCOHOL (ETHANOL) < 0.003 % (0.000-0.010)
[2025-02-14 16:54] LABS: ALT/SGPT 26 U/L (7.0-40); AST/SGOT 21 U/L (<34); CALCIUM LEVEL 9.2 MG/DL (8.5-10.1); CARBON DIOXIDE LEVEL 20 MMOL/L (20-31); CHLORIDE LEVEL 108 MMOL/L (98-107); CPK CREATINE PHOSPHOKINASE 209 U/L (46-171); CREATININE FOR GFR 1.30 MG/DL (0.70-1.30); GLOMERULAR FILTRATION RATE 68.6 (>60); POTASSIUM SERUM 4.0 MMOL/L (3.5-5.1); SALICYLATE LEVEL 7.0 MG/DL (<30); SODIUM LEVEL 143 MMOL/L (136-145)
[2025-02-14] MEDS: NS (Normal Saline) 0.9% 1,000 ML IV ONE ×2 (17:15→18:21)
[2025-02-14 17:56] LABS: CK-MB VALUE MASS 3.2 NG/ML (<3.6); MB/CK RELATIVE INDEX 1.53 (< OR =4)
[2025-02-14 18:14] LABS: CK-MB VALUE MASS 2.1 NG/ML (<3.6)
[2025-02-14 18:16] LABS: CPK CREATINE PHOSPHOKINASE 171 U/L (46-171); MB/CK RELATIVE INDEX 1.22 (< OR =4)
[2025-02-14 20:51] LABS: AMPHETAMINES LEVEL URINE NEGATIVE (NEGATIVE); BARBITURATES URINE NEGATIVE (NEGATIVE); BENZODIAZEPINES URINE NEGATIVE (NEGATIVE); COCAINE METABOLITE URINE NEGATIVE (NEGATIVE); METHADONE URINE NEGATIVE (NEGATIVE); OPIATES URINE NEGATIVE (NEGATIVE); PHENCYCLIDINE URINE NEGATIVE (NEGATIVE)
[2025-02-14 20:53] LABS: CANNABINOIDS URINE POSITIVE (NEGATIVE)
[2025-02-14 21:15] VITALS: BP 138/82; TEMP 98.5; O2SAT 98
== END 2025-02-14 21:24 | disposition home or self-care (01) ==
LOC: M ED 15:41
DX: F12.120 Cannabis abuse with intoxication, uncomplicated (principal); R00.0 Tachycardia, unspecified; I45.10 Unspecified right bundle-branch block; E11.9 Type 2 diabetes mellitus without complications; I10 Essential (primary) hypertension; F32.A Depression, unspecified; E78.5 Hyperlipidemia, unspecified; Z79.02 Long term (current) use of antithrombotics/antiplatelets; Z79.4 Long term (current) use of insulin; Z79.899 Other long term (current) drug therapy